=== PATIENT | female | born 1945 | race Caucasian/White ===

== ENCOUNTER 2017-05-20 19:48 | Emergency (ER) | payer OTHER ==
[~2017-05-20] VITALS: Ht 162.6 cm; Wt 104.5 kg
[~2017-05-20 19:48] MED LIST: ALBUAER9 INH; CHOL100010 PO; FLUT0.0529; FRRS300 PO; LORA10CA2 PO; TRAM-10 PO; TRIA37.5 PO
[2017-05-20 19:52] VITALS: TEMP 36.8; Ht 162.6 cm; Wt 104.5 kg
[2017-05-20] MEDS ORDERED: NAPR250T2 PO (20:33)
[2017-05-20] MEDS ORDERED: FLVHFA110 INH (20:33)
[2017-05-20] MEDS ORDERED: CYAN10005 PO (20:33)
[2017-05-20] MEDS ORDERED: CHOL1000 PO (20:33)
[2017-05-20] MEDS ORDERED: FLUT0.15 NAE (20:33)
[2017-05-20] MEDS ORDERED: VNTHFA/IN INH (20:33)
[2017-05-20] MEDS ORDERED: LPT10 PO (20:33)
--- NOTE | 2017-05-20 20:49 | DIAGNOSTIC IMAGING REPORT ---
LEFT PELVIS/UNILATERAL HIP 2-3VIEWS CLINICAL HISTORY: left hip pain COMPARISON STUDY: Pelvis 01/23/2015. FINDINGS: There is again noted a left total hip arthroplasty. No fracture or dislocation within the pelvis or hips. Stable 5.6 cm calcified uterine fibroid within the left deep pelvis. The sacrum is intact. Degenerative changes within the lower lumbar spine. Severe osteoarthritis within the right hip, unchanged. There is 1.5 mm of periprosthetic lucency at the level of the left greater trochanter. This is within the range of normal limits but is slightly progressed compared to the 2014 examination. IMPRESSION: 1. No acute fracture or dislocation within the pelvis or hips. 2. Left total hip arthroplasty. The hardware appears intact. There is 1.5 mm of periprosthetic lucency at the level of the left greater trochanter. This is within the range of normal limits but is slightly progressed compared to the 2014 examination. 3. Severe right hip osteoarthritis, unchanged. Electronically signed by: Ethan Polanco M.D. 05/20/2017 8:48 PM Dictated Date/Time: 05/20/2017 8:45 PM
--- NOTE | 2017-05-20 21:46 | EMERGENCY ROOM VISIT NOTE ---
History Report prepared by Alyce: Ric Atkins Under the Supervision of: Susan BooO. First contact with patient: 19:55 Chief Complaint: HIP PAIN Stated Complaint: UNABLE TO BEAR WEIGHT L HIP History of Present Illness The patient is a 72 year old female who presents to the Emergency Room with complaints of constant left hip pain starting earlier today while bowling. The patient states that the pain is worsened with movement. The patient states that she did not feel any pop or anything, and she denies any back pain, knee pain, ankle pain, weakness, or numbness. She states that she has a history of left hip replacement in 2015. Source of History: patient Onset: earlier today Position: other (left hip) Timing: constant Modifying Factors (Worsening): movement Associated Symptoms: No back pain, No weakness, No numbness Review of Systems See HPI for pertinent positives & negatives. A total of 10 systems reviewed and were otherwise negative. 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 (2) Hypertension Nos Social History Smoking Status: Never Smoker Marital Status: Housing Status: lives with family Occupation Status: retired Current/Historical Medications Scheduled Atorvastatin (Atorvastatin Calcium), 10 MG PO DAILY Cholecalciferol (Vitamin D3), 2,000 INTER.UNIT PO DAILY Cyanocobalamin (Vitamin B-12), 1,000 MCG PO DAILY Fluticasone Propionate (Flovent Hfa), 2 PUFFS INH BID Triamterene/Hctz (Dyazide 37.5MG/25MG), 1 TAB PO QAM Scheduled PRN Albuterol Hfa (Ventolin Hfa), 2 PUFFS INH Q4H PRN for SOB/Wheezing Fluticasone Propionate (Nasal) (Flonase Allergy Relief), 2 SPRAY MYKEL DAILY PRN for UNDECIDED Naproxen (Naprosyn), 250 MG PO BID PRN for Pain Allergies Coded Allergies: Etodolac (Verified Allergy, Intermediate, WHEEZING, 01/23/15) Animal Dander (Verified Allergy, Unknown, WHEEZING, COUGH,SNEEZING, 01/23/15 ) Flurbiprofen (Verified Allergy, Unknown, WHEEZING,COUGH, SNEEZING, 01/23/15) POLLEN (Verified Allergy, Unknown, WHEEZING, SNEEZING,COUGH, 01/23/15) Aspirin (Verified Adverse Reaction, Intermediate, WHEEZING, 01/23/15) Physical Exam Vital Signs Date Time Temp Pulse Resp B/P (MAP) Pulse Ox O2 Delivery O2 Flow Rate FiO2 05/20/17 21:59 75 20 133/100 98 05/20/17 20:38 85 160/80 95 Room Air 05/20/17 19:52 36.8 85 18 160/84 97 Room Air Physical Exam CONSTITUTIONAL/VITAL SIGNS: Reviewed / noted above. GENERAL: Non-toxic in appearance. INTEGUMENTARY: Warm, dry, and [place]. HEAD: Normocephalic. EYES: without scleral icterus or trauma. ENT/OROPHARYNX: clear and moist. LYMPHADENOPATHY/NECK: Is supple without lymphadenopathy or meningismus. RESPIRATORY: Lungs clear and equal. CARDIOVASCULAR: Regular rate and rhythm. GI/ABDOMEN: Soft and nontender. No organomegaly or pulsatile mass. No rebound or guarding. Normal bowel sounds. EXTREMITIES: Tenderness to palpation of the left hip area. Some discomfort with ambulation. Warm and well perfused. BACK: No CVA tenderness. NEUROLOGICAL: Intact without focal deficits. PSYCHIATRIC: normal affect. MUSCULOSKELETAL: Normally developed with good muscle tone. Medical Decision & Procedures ER Provider Diagnostic Interpretation: Radiology results as stated below per my review and radiologist interpretation: LEFT PELVIS/UNILATERAL HIP 2-3VIEWS CLINICAL HISTORY: left hip pain COMPARISON STUDY: Pelvis 01/23/2015. FINDINGS: There is again noted a left total hip arthroplasty. No fracture or dislocation within the pelvis or hips. Stable 5.6 cm calcified uterine fibroid within the left deep pelvis. The sacrum is intact. Degenerative changes within the lower lumbar spine. Severe osteoarthritis within the right hip, unchanged. There is 1.5 mm of periprosthetic lucency at the level of the left greater trochanter. This is within the range of normal limits but is slightly progressed compared to the 2014 examination. IMPRESSION: 1. No acute fracture or dislocation within the pelvis or hips. 2. Left total hip arthroplasty. The hardware appears intact. There is 1.5 mm of periprosthetic lucency at the level of the left greater trochanter. This is within the range of normal limits but is slightly progressed compared to the 2014 examination. 3. Severe right hip osteoarthritis, unchanged. Electronically signed by: Ethan Polanco M.D. 05/20/2017 8:48 PM Dictated Date/Time: 05/20/2017 8:45 PM ED Course 1954: Previous medical records were reviewed. The patient was evaluated in room C3. A complete history and physical examination was performed. 2149: On reevaluation, the patient is feeling well. I discussed the results and findings with the patient. She verbalized agreement of the treatment plan. She was discharged home. Medical Decision Differential diagnosis: Etiologies such as fracture, dislocation, neurovascular compromise, compartment syndrome, soft tissue injury, as well as others were entertained. This is a 72-year-old female who presents to the ED with a chief complaint of left hip pain. The patient has a history of left hip replacement. She was bowling tonight when she states that she left school with a ball and suddenly felt pain in the left hip area. She did not feel a pop or crack. She came in for evaluation. Her pain is absent at rest and is worse with attempting ambulation, specifically with the flexion and extension at the hip movement. She denies any additional symptoms. She is normal reflexes in the lower extremities on exam. She has normal motor and sensory function. She has normal pulses. The patient does have some tenderness to the lateral left hip on exam but there is otherwise no abnormalities palpated or visible. X-rays of the pelvis and hip did not show any significant abnormalities in the left hip. The hardware is intact. The patient was told results. She did not want pain medication. She is felt to be stable for discharge. Medication Reconcilliation Current Medication List: was personally reviewed by me Blood Pressure Screening Patient's blood pressure: Elevated blood pressure Blood pressure disposition: Elevated BP felt to be situational Impression Primary Impression: Hip pain, left Scribe Attestation The scribe's documentation has been prepared under my direction and personally reviewed by me in its entirety. I confirm that the note above accurately reflects all work, treatment, procedures, and medical decision making performed by me. Departure Information Dispostion Home / Self-Care Referrals Lashanda Monroy M.D. (PCP) Forms HOME CARE DOCUMENTATION FORM, IMPORTANT VISIT INFORMATION, WORK / SCHOOL INSTRUCTIONS [facility] Instructions [facility] Additional Instructions Take [id number] medications for pain. Follow-up with your orthopedist if symptoms persist next week.
[2017-05-20 21:59] VITALS: BP 133/100; PULSE 75; O2SAT 98
== END 2017-05-20 22:00 | disposition home or self-care (01) ==
LOC: C.EDB 19:49 → C.EDC 22:00
DX: M25.552 Pain in left hip (principal); I25.10 Atherosclerotic heart disease of native coronary artery without angina pectoris; I10 Essential (primary) hypertension; Z96.642 Presence of left artificial hip joint

== ENCOUNTER 2020-05-13 05:15 | Observation (INO) ==
--- NOTE | 2020-04-11 14:18 | PAT Medication Instructions ---
Medication Instructions Date of Service April 11, 2020 Home Medications acetaminophen [Tylenol 8 Hour] 650 mg PO Q8H PRN albuterol sulfate [Ventolin HFA] 2 puff INHALATION Q6H PRN atorvastatin 10 mg PO QAM cholecalciferol (vitamin D3) [Vitamin D3] 50 mcg PO QAM cyanocobalamin (vitamin B-12) 1,000 mcg PO QAM fluticasone propionate 1 spray INTRANASAL DAILY PRN lisinopril-hydrochlorothiazide 1 tab PO QAM DO NOT take the morning of surgery cholecalciferol (vitamin D3) [Vitamin D3] 50 mcg PO QAM cyanocobalamin (vitamin B-12) 1,000 mcg PO QAM lisinopril-hydrochlorothiazide 1 tab PO QAM Take morning of surgery With a small sip of water, OTHERWISE NOTHING TO EAT OR DRINK AFTER MIDNIGHT: acetaminophen [Tylenol 8 Hour] 650 mg PO Q8H PRN (okay to take up to 4 hours prior to surgery if needed) albuterol sulfate [Ventolin HFA] 2 puff INHALATION Q6H PRN (use if needed; please bring with you to hospital day of surgery if possible) atorvastatin 10 mg PO QAM fluticasone propionate 1 spray INTRANASAL DAILY PRN (if needed) Take evening before surgery acetaminophen [Tylenol 8 Hour] 650 mg PO Q8H PRN (if needed) albuterol sulfate [Ventolin HFA] 2 puff INHALATION Q6H PRN (if needed) fluticasone propionate 1 spray INTRANASAL DAILY PRN (if needed) Other Notes If you have any questions please call us at [phone] or [phone] or [phone] or [phone]
--- NOTE | 2020-04-14 14:18 | Anesthesiology Consultation ---
Date of Service April 14, 2020 Assessment & Plan (1) Encounter for pre-operative examination: Per PAT assessment on 04/10: Travel screen negative. No known COVID-19 positive contacts. No current COVID-19 related symptoms. Surgeon arranging preop COVID testing. Awaiting results. Chart Review Chart Review: Acceptable Risk for Surgery and Patient seen in Pre Admission Testing Teaching & Discussion Pre-Anesthesia Teaching/Discussion Notes: Instructed NPO after midnight before surgery,except medications with 15 cc of water. Medication instructions provided according to the [facility] guidelines. History Surgery Operation Date: 05/13/20 07:15 Proposed Procedures p Right Total Hip Arthroplasty - Posterior - Curtis Cancino DO Height/Weight Height: 5 ft 3 in Weight: 86.4 kg Allergies Allergy/AdvReac Type Severity Reaction Status Date / Time aspirin Allergy Intermediate wheezing Verified 04/14/20 14:16 etodolac Allergy Intermediate wheezing Verified 04/14/20 14:16 animal dander Allergy Unknown wheezing, Verified 04/14/20 14:16 cough, sneezing flurbiprofen Allergy Unknown wheezing, Verified 04/14/20 14:16 cough, sneezing pollen extracts Allergy Unknown wheezing, Verified 04/14/20 14:16 cough, sneezing ibuprofen AdvReac Intermediate Unknown Verified 04/10/20 08:33 Medications Home Medications Medication Instructions Recorded Confirmed Last Taken acetaminophen [Tylenol 8 Hour] 650 mg PO Q8H PRN 04/10/20 04/10/20 Unknown albuterol sulfate [Ventolin HFA] 2 puff INHALATION Q6H PRN 04/10/20 04/10/20 Unknown atorvastatin 10 mg PO QAM 04/10/20 04/10/20 Unknown cholecalciferol (vitamin D3) 50 mcg PO QAM 04/10/20 04/10/20 Unknown [Vitamin D3] cyanocobalamin (vitamin B-12) 1,000 mcg PO QAM 04/10/20 04/10/20 Unknown fluticasone propionate 1 spray INTRANASAL DAILY PRN 04/10/20 04/10/20 Unknown lisinopril-hydrochlorothiazide 1 tab PO QAM 04/10/20 04/10/20 Unknown Past Medical History Medical History Asthma well controlled DJD (degenerative joint disease) Hyperlipidemia Hypertension Left bundle branch block dating back to at least 06/2012 per [facility] records Obesity Osteoarthritis Urge incontinence Exercise / Class Metabolic Activity III < 4 Walking/Shop/Light housework Past Surgical History Surgical History Basal cell carcinoma of scalp> removed History of carpal tunnel release left History of colonoscopy History of decompression of ulnar nerve right History of tooth extraction History of total hip arthroplasty left History of total shoulder replacement bilat Status post trigger finger release left hand Past Anesthesia History No Hx of Anesthesia Complications and No Family Hx of Anesthesia Complications History of PONV No Hx of PONV and No Hx of Motion Sickness Social History Smoking Status: Former smoker Do You Dip or Chew Tobacco: No Smoking End Date: Quit age 20 Hx Alcohol Use: Yes Alcohol type: wine alcohol intake frequency: holidays/special occasions only Hx Substance Use: No substance use type: does not use Review of Systems Patient denies chest pain, shortness of breath, fever, chills, cough, wheezing, palpitations. Physical Exam Vital Signs VITALS BP 113/70 P 90 TEMP 98.4 SP02 98%RA RESP 18 PHYSICAL Full neck and c-spine range of motion. Full TMJ range of motion. TMD 3 finger breaths Mallampati Score 2 Dentition: intact Lungs: clear throughout to auscultation Cardiac: regular rate and rhythm, no murmurs noted Spine: normal Carotid arteries: negative bruit Extremities: no edema Testing Laboratory Results 04/14/20 14:49 04/14/20 14:49 PT 10.9 Seconds (9.0-12.0) 04/14/20 14:49 INR 1.0 (0.9-1.1) 04/14/20 14:49 APTT 25.8 Seconds (21.0-31.0) 04/14/20 14:49 Hemoglobin A1c 5.2 % (4.5-5.6) 04/14/20 14:49 Urine Color Yellow 04/14/20 Unknown Urine Appearance Clear (Clear) 04/14/20 Unknown Urine pH 5.0 (4.5-7.5) 04/14/20 Unknown Ur Specific [place] 1.018 (1.000-1.030) 04/14/20 Unknown Urine Protein Negative (Negative) 04/14/20 Unknown Urine Glucose (UA) Negative (Negative) 04/14/20 Unknown Urine Ketones Negative (Negative) 04/14/20 Unknown Urine Nitrite Negative (Negative) 04/14/20 Unknown Ur Leukocyte Esterase 1+ (Negative) H 04/14/20 Unknown Urine WBC (Auto) 5-10 /hpf (0-5) H 04/14/20 Unknown Urine RBC (Auto) 0-4 /hpf (0-4) 04/14/20 Unknown U Hyaline Cast (Auto) 1-5 /lpf (0-5) 04/14/20 Unknown U Epithel Cells (Auto) 5-10 /lpf (0-5) H 04/14/20 Unknown Urine Bacteria (Auto) Negative (Negative) 04/14/20 Unknown Blood Type O Positive 04/14/20 14:49 Antibody Screen NEGATIVE 04/14/20 14:49 Electrocardiogram Date: 04/14/20 NSR at 78bpm. LBBB. unconfirmed report. (known hx LBBB dating back 2011 EKG's per chart review, stress test done 12/2012*) Chest X-Ray Date: 04/14/20 FINDINGS: 4.0 cm opacity of the medial right lung base is noted with circumscribed superior margin. This appears more conspicuous than comparison study is. Cardiac silhouette is normal. Calcific plaque of the thoracic aorta. No pneumothorax, pleural effusion, overt pulmonary edema or airspace consolidation typical for pneumonia. Degenerative changes of the spine. Reverse bilateral shoulder total joint arthroplasties. IMPRESSION: No acute process. 4.0 cm opacity of the right cardiophrenic angle is suggestive of a probable p rominent epicardial fat pad. A pericardial cyst could appear similarly. Report being forwarded to PCP for their reference. Stress Test Date: 01/09/13 Myocardial perfusion normal. No RWMA. EF 58%.
--- NOTE | 2020-04-14 15:22 | XRay Report ---
XR chest Pre-admission PA/Lat HISTORY: 75 years-old Female pat preoperative exam. No acute chest complaints COMPARISON: Chest radiograph 02/11/2015 and 01/01/2015 TECHNIQUE: PA and lateral views of the chest FINDINGS: 4.0 cm opacity of the medial right lung base is noted with circumscribed superior margin. This appear s more conspicuous than comparison study is. Cardiac silhouette is normal. Calcific plaque of the tho racic aorta. No pneumothorax, pleural effusion, overt pulmonary edema or airspace consolidation typic al for pneumonia. Degenerative changes of the spine. Reverse bilateral shoulder total joint arthropla sties. IMPRESSION: 1. No acute process. 2. 4.0 cm opacity of the right cardiophrenic angle is suggestive of a probable prominent epicardial f at pad. A pericardial cyst could appear similarly. ACT 112: Negative or not required by law. The above report was generated using voice recognition software. It may contain grammatical, syntax o r spelling errors. Electronically signed by: Liam Alvarez M.D. 04/14/2020 3:20 PM
[2020-04-14 15:27] LABS: Basophils # (auto) 0.01 K/uL (0-0.2); Basophils % (auto) 0.2 %; Eosinophils % (auto) 1.7 %; Hematocrit (blood only) 34.2 % (37-47); Hemoglobin 11.2 g/dL (12.0-16.0); Immature Granulocytes # (auto) 0.01 K/uL (0.00-0.02); Immature Granulocytes % (auto) 0.2 %; Lymphocytes # (auto) 0.95 K/uL (1.2-3.4); Lymphocytes % (auto) 15.9 %; Mean Corpuscular Hemoglobin 31.5 pg (25-34); Mean Corpuscular Hgb Conc 32.7 g/dL (32-36); Mean Corpuscular Volume 96.3 fL (80-100); Mean Platelet Volume 9.1 fL (7.4-10.4); Monocytes # (auto) 0.19 K/uL (0.11-0.59); Monocytes % (auto) 3.2 %; Neutrophils # (auto) 4.72 K/uL (1.4-6.5); Neutrophils % (auto) 78.8 %; Platelet Count 232 K/uL (130-400); RDW Coefficient of Variation 13.2 % (11.5-14.5); RDW Standard Deviation 46.3 fL (36.4-46.3); Red Blood Count 3.55 M/uL (4.2-5.4); White Blood Count 5.98 K/uL (4.8-10.8)
[2020-04-14 15:30] LABS: Albumin Level 3.4 gm/dl (3.4-5.0); BUN Creatinine Ratio 25.1 (10-20); Calcium 9.4 mg/dl (8.5-10.1); Creatinine Clr Calc Pharmacy 43.5 ml/min; Est GFR (African American) 51.9; Est GFR (Non-African American) 44.8
[2020-04-14 15:32] LABS: Appearance Urine Clear (Clear); Bacteria Urine Automated Negative (Negative); Bilirubin Urine Negative (Negative); Blood Urine Negative (Negative); Color Urine Yellow; Glucose Urine UA Negative (Negative); Ketones Urine Negative (Negative); Leukocyte Esterase Urine 1+ (Negative); Nitrite Urine Negative (Negative); Protein Urine Negative (Negative); RBC Urine Automated 0-4 /hpf (0-4); Specific Gravity Urine 1.018 (1.000-1.030); Urobilinogen Urine Negative (Negative)
[2020-04-14 15:36] LABS: Partial Thromboplastin Ratio 0.9; Partial Thromboplastin Time 25.8 Seconds (21.0-31.0); Prothrombin Time 10.9 Seconds (9.0-12.0)
[2020-04-15 06:07] LABS: Estimated Average Glucose 103 mg/dl; Hemoglobin A1C 5.2 % (4.5-5.6)
--- NOTE | 2020-04-16 16:46 | Electrocardiogram Report ---
Test Reason : Blood Pressure : / mmHG Vent. Rate : 078 BPM Atrial Rate : 078 BPM P-R Int : 134 ms QRS Dur : 144 ms QT Int : 406 ms P-R-T Axes : 068 -14 077 degrees QTc Int : 462 ms Normal sinus rhythm Left bundle branch block Abnormal ECG When compared with ECG of 01-JAN-2015 13:34, No significant change was found Confirmed by Chris Bentley ([id number]) on 04/16/2020 4:46:13 PM Referred By: Curtis Cancino Confirmed By:Chris Bentely
--- NOTE | 2020-05-11 10:24 | History & Physical Report ---
Date of Service May 13, 2020 Assessment & Plan (1) Degenerative joint disease of right hip: I have indicated the patient for right total hip replacement. The risks, benefits and complications of surgery were explained to the patient which include but not limited to infection, acute blood loss, DVT/PE, injury to nerves, vessels, bone, soft tissue, arthrofibrosis, chronic pain, failure of the prosthesis, hip dislocation, leg length discrepancy, need for additional surgery, cardiac and pulmonary events and . The patient wished to proceed with surgery and informed consent was obtained at this time. We will plan for 81mg ASA BID post-operatively for DVT prophylaxis. Upon discharge the patient will be discharged home with home health services. Appropriate clearances by PCP were obtained. History of Present Illness Chief Complaint: Right hip pain/DJD Primary Care Provider: Tamiko Hinkle DO The patient is a 75 year old female who presents with complaints of severe right hip pain and DJD. The patient has failed outpatient conservative treatments to this point which included NSAIDs, home exercise/walking program. The patient's pain and limited function have progressed to the point where they severely hinder their activities of daily living and they no longer tolerate exercise programs. They are requesting to proceed with total hip replacement surgery. Allergies Allergy/AdvReac Type Severity Reaction Status Date / Time aspirin Allergy Intermediate wheezing Verified 05/13/20 05:38 etodolac Allergy Intermediate wheezing Verified 05/13/20 05:38 animal dander Allergy Unknown wheezing, Verified 05/13/20 05:38 cough, sneezing flurbiprofen Allergy Unknown wheezing, Verified 05/13/20 05:38 cough, sneezing pollen extracts Allergy Unknown wheezing, Verified 05/13/20 05:38 cough, sneezing ibuprofen AdvReac Intermediate Unknown Verified 05/13/20 05:38 Home Medications Home Medications Medication Instructions Recorded Confirmed Type acetaminophen [Tylenol 8 Hour] 650 mg PO Q8H PRN 04/10/20 05/13/20 History albuterol sulfate [Ventolin HFA] 2 puff INHALATION Q6H PRN 04/10/20 04/10/20 History atorvastatin 10 mg PO QAM 04/10/20 05/13/20 History cholecalciferol (vitamin D3) 50 mcg PO QAM 04/10/20 05/13/20 History [Vitamin D3] cyanocobalamin (vitamin B-12) 1,000 mcg PO QAM 04/10/20 05/13/20 History fluticasone propionate 1 spray INTRANASAL DAILY PRN 04/10/20 04/10/20 History lisinopril-hydrochlorothiazide 1 tab PO QAM 04/10/20 05/13/20 History naproxen sodium [Aleve] 220 mg PO BID PRN 05/13/20 05/13/20 History Past Med/Surg History Medical History Asthma well controlled DJD (degenerative joint disease) Hyperlipidemia Hypertension Left bundle branch block dating back to at least 06/2012 per [facility] records Obesity Osteoarthritis Urge incontinence Surgical History Basal cell carcinoma of scalp> removed History of carpal tunnel release left History of colonoscopy History of decompression of ulnar nerve right History of tooth extraction History of total hip arthroplasty left History of total shoulder replacement bilat Status post trigger finger release left hand Social History Smoking Status: Former smoker Smoking End Date: Quit age 20; Second Hand Exposure: No; Do You Dip or Chew Tobacco: No; Tobacco Cessation Education Requested by Patient: No Hx Alcohol Use: Yes Alcohol type: wine Hx Substance Use: No Preferred Language: Uzbek Communication Ability: Effective [employer]space Control Officer Required: No Beliefs That Will Affect Care: None Current Living Situation: Family Other Information That Helps Us Care for You: No Feels Safe at Home: Yes Safety Concerns: Feels Safe At This Time Review of Systems Review of Systems: All systems reviewed & are unremarkable except as noted in HPI & below Constitutional: as per Subjective / HPI Physical Exam Physical Exam: RLE NVSI +EHL/FHL/TA/GS SILT grossly, +2 DP pulse, compartments soft NT, limited painful ROM of the hip, antalgic gait. Constitutional: WD/WN, vitals as above Eyes: PERRL, conjunctivae normal, anicteric sclerae ENMT: external ear and nose normal, oropharynx normal Neck: trachea midline, no thyromegaly Respiratory: normal respiratory effort, lungs clear to auscultation Cardiovascular: RRR, no murmur, no edema Gastrointestinal (Abdomen): normal bowel sounds, soft, nontender, no hepatosplenomegaly Musculoskeletal: no cyanosis or clubbing, extremities motor strength 5/5 Skin: no rashes, warm and dry Neurologic: patellar DTR's 2+ bilat, sensation intact Psychiatric: A+Ox3, euthymic affect Lymphatic: no cervical or axillary lymphadenopathy Results & Data Results & Data ([facility]) Diagnostic Findings Multiple views of the hip demonstrates severe DJD with complete loss of the joint space. +osteophytes, +sclerosis, +subchondral cysts.
[2020-05-13] MEDS ORDERED: GABAPENTIN 300 MG CAP PO SCH (06:00)
[2020-05-13] MEDS ORDERED: dexAMETHasone 4 MG TAB PO SCH (06:00)
[2020-05-13] MEDS ORDERED: CEFAZOLIN 2000MG 2,000 MG/15 ML SYR IV SCH (06:00)
[2020-05-13] MEDS ORDERED: FAMOTIDINE 20 MG TAB PO SCH (06:00)
[2020-05-13] MEDS ORDERED: METOCLOPRAMIDE HCL 10 MG TABLET PO SCH (06:00)
[2020-05-13] MEDS ORDERED: CeleBREX 200 MG CAP PO SCH (06:00)
[2020-05-13] MEDS ORDERED: TRANEXAMIC ACID 1,000 MG **IV Intra-op IV SCH (06:00)
[2020-05-13] MEDS ORDERED: TRANEXAMIC ACID 1,000 MG **IV Pre-op IV SCH (06:00)
[2020-05-13] MEDS ORDERED: LR 500ML BOLUS, THEN 15ML/HR IV SCH (06:00)
[2020-05-13] MEDS ORDERED: ACETAMINOPHEN 500 MG TAB PO SCH (06:00)
[2020-05-13] MEDS ORDERED: ROPIVACAINE 0.5% HCL/PF 150 MG, BUPIVACAINE 0.5% MPF 30 ML, EPINEPHrine 30MG/30ML (OR U... INFIL SCH ×2 (06:00→08:30)
[2020-05-13] MEDS ORDERED: BUPIVACAINE 0.5 % 5 MG/1 ML PF 10ML VIAL ONE (06:19)
[2020-05-13] MEDS ORDERED: MIDAZOLAM HCL 1 MG/ML 2ML VIAL ONE ×2 (06:42)
--- NOTE | 2020-05-13 06:58 | History & Physical Bridge Note ---
Date of Service May 13, 2020 History & Physical Bridge Note I have examined the patient, reviewed the History & Physical and in the interval since the performance of the History & Physical I have noted the following changes of clinical significance: no changes noted
[2020-05-13] MEDS ORDERED: ORTHO JOINT ANESTHETIC ONE (07:06)
[2020-05-13] MEDS ORDERED: BACITRACIN INJ 50,000 UNIT VIAL ONE (07:07)
[2020-05-13] MEDS ORDERED: PROPOFOL IV EMULSION 10 MG/ML 20 ML VIAL IV ONE ×2 (07:46→08:45)
[2020-05-13] MEDS ORDERED: ATROPINE SULFATE 0.1 MG/ML 10ML SYR IV PRN (08:08)
[2020-05-13] MEDS ORDERED: ePHEDrine sulfate 50 MG/ML AMP IV PRN (08:08)
--- NOTE | 2020-05-13 08:55 | Post Operative Brief Note ---
Immediate Post Op Note v1 Date of Surgery May 13, 2020 Pre & Post Diagnosis Operation Date: 05/13/20 07:15 Pre-Op Diagnosis: Unilateral Primary Osteoarthritis, Right hip Post-Op Diagnosis: Unilateral Primary Osteoarthritis, Right hip I identified the patient and participated in the time-out.: Yes Procedure Operation Date: 05/13/20 07:15 Actual Procedures p Right Total Hip Arthroplasty - Posterior(Right) - Curtis Cancino DO Surgeon Curtis Cancino DO [employer] Jensen Wang Estimated Blood Loss 185 Findings Consistent with Post-Op Diagnosis Fluids 1200 cc LR Specimens femoral head Anesthesia Type Spinal MAC Complications none Disposition Disposition: Recovery Room Overlapping Procedure I was present for: the critical portions of procedure. I was immediately available: during the entire case. Back up surgeon: was not required during procedure.
--- NOTE | 2020-05-13 08:58 | Operative Report ---
Post Operative Report Pre & Post Diagnosis Operation Date: 05/13/20 07:15 Pre-Op Diagnosis: Unilateral Primary Osteoarthritis, Right hip Post-Op Diagnosis: Unilateral Primary Osteoarthritis, Right hip I identified the patient and participated in the time-out.: Yes Procedure Operation Date: 05/13/20 07:15 Actual Procedures p Right Total Hip Arthroplasty - Posterior(Right) - Curtis Cancino DO Surgeon Curtis Cancino DO Neurophysiology Tech Jensen Wang Estimated Blood Loss 185 Findings Consistent with Post-Op Diagnosis Fluids 1200 cc LR Specimens femoral head Anesthesia Type Spinal MAC Complications none Disposition Disposition: Recovery Room Indications The patient is a 75-year-old female who presents with severe progressive right hip DJD who has failed outpatient conservative treatments. I indicated the patient for a total hip replacement and the risks and benefits were explained in detail which included but not limited to infection, bleeding, blood clot, damage to surrounding bone, nerves, vessels, soft tissue, hip dislocation, failure of the prosthesis, leg length discrepancy, need for additional surgery and . The patient agreed to proceed with replacement of the hip and informed consent was obtained. Appropriate clearances were obtained. Description of Procedure COMPONENTS USED: [employer] hip system: Acetabulum size G7 50, femur size 9 extended offset, femoral head 36-3.5, liner 5036 elevated, acetabular screw 30 mm x 1. Following induction of adequate spinal anesthesia, the patient was transferred to the OR table and placed in lateral decubitus position with left hip down. The right hip was prepped and draped in the typical sterile fashion. A timeout was performed, patient identified and site elif confirmed. Appropriate antibiotics were given. A standard posterolateral/Abrahan-Langenbeck incision was made. Subcutaneous tissue was sharply dissected. Electrocautery was utili zed for hemostasis. The fascia was incised throughout the length of the wound and retracted with the Charnley retractor. The bursa was taken down and the short external rotators were identified. The piriformis was tagged with #1 Vicryl. The short external rotators and capsule were divided from the posterior aspect of the femur using electrocautery. The posterior capsule was tagged with #1 Vicryl. Both external rotators and posterior capsule were swept posterior and protected, along with protecting the sciatic nerve. The hip was dislocated by flexion and internally rotation in a controlled manner and exposure of the femoral neck was gained with an old-style Hohmann and a blunt cobra retractor. A femoral cutting guide was utilized for making the appropriate level femoral neck cut with reciprocating saw. The femoral head was removed, measured and reserved on the back table. Next, attention was turned to the acetabulum. A posterior and anterior offset retractor was placed to gain adequate exposure. Acetabular labrum as well as posterior capsule elements were removed using electrocautery and forceps. Fovea centralis was cleared of all soft tissue. Sequential reaming was performed starting at 42 mm and carried up to a 49 mm and decision was made to proceed with impaction of a 50 mm G7 osteo-ti cup. This was impacted and held using a single 30 mm bone screw. The trial acetabular liner was placed at this time. Next, attention was turned to the proximal femur where a Bovie and pickup was used to further clear short external rotators from their insertion on the femur. Box osteotome and canal finder was used to gain access to the femoral canal and the lateral reamer on power was used to further open the proximal lateral canal. Sequentially rasping was carried up to a 9 which gave good fit and fill of the proximal femur. A trial reduction was carried out with a extended offset femoral neck component a 36-3.5 mm femoral head. The trial reduction was stable in all degrees of rotation with no [id number] impingement. The hip was dislocated, trial components were removed and access to the acetabulum was re-established. The trial liner was removed and the cup was irrigated to ensure all debris was removed. The final acetabular liner was inserted and properly seated in the cup. Access to the femur was once more gained and the size 9 femoral stem with extended offset was impacted into position. The hip was once more assessed with the 36-3.5 mm femoral head. Stability was accessed and found to be excellent with equal leg lengths. The hip was dislocated for the last time and the final 36-3.5 ceramic femoral head was impacted in place and the hip was reduced. Range of motion was checked once again and found to be stable. A Betadine soak was performed. After 3 minutes, the hip was once more irrigated with copious sterile saline solution with bacitracin. The briseida-incisional soft tissue was injected utilizing [place] ortho mix which includes a combination of Ropivicaine 0.5% 150mg, Bupivicaine 0.5%/Epinephrine 1:200,000 30ml, Dexamethasone 4mg, Ketamine 10mg, Clonidine 100mcg and NSS 30ml Orthomix solution. The piriformis, external rotators and capsule were repaired to the greater trochanter through bone tunnels using #5 FiberWire. The fascia was closed using #1 Vicryl, subcutaneous tissue was closed using 2-0 Vicryl, and ski n was closed with devyn. Sterile dressings were applied which included Debra incisional VAC. The patient tolerated the procedure well and was transported to PACU in stable condition. Due to the complex nature of the procedure, the entire surgery was performed with the operational assistance of Jensen Wang PA-C. The volleyball assistant coach, under direct supervision, was involved in the actual performance of all aspects of the surgical procedure including patient positioning, hemostasis, tissue retraction, instrument management and wound closure. I attest to the content of the Intraoperative Record and any orders documented therein. Any exceptions are noted below.
--- NOTE | 2020-05-13 09:32 | XRay Report ---
SINGLE VIEW PELVIS; SINGLE VIEW RIGHT HIP CLINICAL HISTORY: Postoperative examination. FINDINGS: An AP portable view of the hips and pelvis with a crosstable lateral portable view of the r ight hip are compared to study dated 05/20/2017. A bipolar right hip arthroplasty is in near-anatomic a lignment. A single cortical lag screw transfixes the acetabular cup. No acute fracture is identified. There are expected postoperative changes overlying the right hip including skin clips, subcutaneous gas, and soft tissue swelling. A left hip arthroplasty is also in place. A large calcified fibroid is noted in the pelvis. IMPRESSION: Expected postoperative findings status post right hip arthroplasty. No acute fracture is seen. ACT 112: Negative or not required by law. Electronically signed by: Francisco Balderas M.D. 05/13/2020 9:31 AM
--- NOTE | 2020-05-13 09:44 | Anesthesiology Progress Note ---
Date of Service May 13, 2020 Anesthesia Post Procedure Vital Signs Vital Signs: Temp Pulse Pulse Resp BP Pulse Ox 05/13/20 09:35 36.3 C L 64 19 98/60 L 100 05/13/20 09:25 66 15 99/67 L 100 05/13/20 09:17 36.0 C L 74 22 102/59 L 99 05/13/20 06:27 70 18 124/65 98 05/13/20 05:49 36.9 C 73 18 153/84 H 96 Transfer of Care Handoff Completed per policy Notes Mental Status: alert / awake / arousable Patient Amnestic to Procedure: Yes Nausea / Vomiting: adequately controlled Pain: adequately controlled Airway Patency, RR, SpO2: stable & adequate BP & HR: stable & adequate Hydration State: stable & adequate Neuraxial Anesthesia: was administered and sensory block is resolving Anesthetic Complications: no major complications apparent
[2020-05-13] MEDS ORDERED: NALOXONE HCL 0.4 MG/1 ML VIAL/CARP IV PRN (10:26)
[2020-05-13] MEDS ORDERED: ONDANSETRON INJ 2 MG/ML 2 ML VIAL IV PRN (10:26)
[2020-05-13] MEDS ORDERED: METOCLOPRAMIDE HCL INJ 5 MG/ML 2 ML VIAL IV PRN (10:26)
[2020-05-13] MEDS ORDERED: ALBUTEROL HFA 8 GM INHALER INH PRN (10:26)
[2020-05-13] MEDS ORDERED: bisacodyL 10 MG SUPP PR PRN (10:26)
[2020-05-13] MEDS ORDERED: HYDROmorphone INJ 0.5 MG/0.5 ML SYR IV PRN (10:26)
[2020-05-13] MEDS ORDERED: MAGNESIUM HYDROXIDE SUSP 30 ML UDC PO PRN (10:26)
[2020-05-13] MEDS: SODIUM CHLORIDE 0.9% 1000ML 1,000 ML IV SCH ×2 (10:54→21:11)
[2020-05-13] MEDS: ATORVASTATIN 10 MG TAB PO SCH (11:43)
[2020-05-13] MEDS: DOCUSATE SODIUM 100 MG CAP PO SCH ×2 (11:51→20:47)
[2020-05-13] MEDS: LISINOPRIL/HCTZ 10/12.5MG TAB PO SCH (11:52)
[2020-05-13] MEDS: OXYCODONE HCL IR 5 MG TAB (IMMEDIATE RELEASE) PO PRN ×2 (11:52→20:48)
[2020-05-13] MEDS: MULTIVITAMIN TAB PO SCH (11:52)
[2020-05-13] MEDS: ACETAMINOPHEN 500 MG TAB PO SCH ×2 (15:28→22:02)
[2020-05-13] MEDS: CEFAZOLIN 2000MG 2,000 MG/15 ML SYR IV SCH ×2 (15:31→21:10)
--- NOTE | 2020-05-13 18:39 | Hospitalist Consultation ---
Date of Consultation May 13, 2020 Assessment & Plan (1) DJD (degenerative joint disease): (2) Degenerative joint disease of right hip: - Pain management, bowel regimen and DVT ppx with asa 81 mg BID per the primary team - PT/OT consults - Follow am CBC to monitor for acute blood loss (3) Osteoarthritis: - Pain controlled well, prn medications (4) Obesity: - BMI of 32.7, diet and exercise to be encouraged prior to discharge (5) Hypertension: - Cont lisinopril/hctz as per [facility] meds (6) Hyperlipidemia: - Cont atorvastatin 10 mg QAM (7) Left bundle branch block: - Hx of such, chronic, noted on EKG (8) Asthma: - Well controlled, does not require supplementat O2 at baseline (9) DVT prophylaxis: - teds, scds, asa 81 mg BID CODE: Full Dispo: From home, likely to remain in the hospital x 1-2 days History of Present Illness Attending Physician: Curtis Cancino, History of Present Illness This is a 75 yo F with PMHx of HTN, HLD, LBBB, Obesity, OA, DJD and asthma who underwent R total hip arthroplasty by Dr. Cancino on 05/13/2020. Allergies Allergy/AdvReac Type Severity Reaction Status Date / Time aspirin Allergy Intermediate wheezing Verified 05/13/20 05:38 etodolac Allergy Intermediate wheezing Verified 05/13/20 05:38 animal dander Allergy Unknown wheezing, Verified 05/13/20 05:38 cough, sneezing flurbiprofen Allergy Unknown wheezing, Verified 05/13/20 05:38 cough, sneezing pollen extracts Allergy Unknown wheezing, Verified 05/13/20 05:38 cough, sneezing ibuprofen AdvReac Intermediate Unknown Verified 05/13/20 05:38 Home Medications Home Medications Medication Instructions Recorded Confirmed Type acetaminophen [Tylenol 8 Hour] 650 mg PO Q8H PRN 04/10/20 05/13/20 History albuterol sulfate [Ventolin HFA] 2 puff INHALATION Q6H PRN 04/10/20 04/10/20 History atorvastatin 10 mg PO QAM 04/10/20 05/13/20 History cholecalciferol (vitamin D3) 50 mcg PO QAM 04/10/20 05/13/20 History [Vitamin D3] cyanocobalamin (vitamin B-12) 1,000 mcg PO QAM 04/10/20 05/13/20 History fluticasone propionate 1 spray INTRANASAL DAILY PRN 04/10/20 04/10/20 History lisinopril-hydrochlorothiazide 1 tab PO QAM 04/10/20 05/13/20 History naproxen sodium [Aleve] 220 mg PO BID PRN 05/13/20 05/13/20 History Patient History Medical History Asthma well controlled DJD (degenerative joint disease) Hyperlipidemia Hypertension Left bundle branch block dating back to at least 06/2012 per [facility] records Obesity Osteoarthritis Urge incontinence Surgical History Basal cell carcinoma of scalp> removed History of carpal tunnel release left History of colonoscopy History of decompression of ulnar nerve right History of tooth extraction History of total hip arthroplasty left History of total shoulder replacement bilat Status post trigger finger release left hand Social History Smoking Status: Former smoker Smoking End Date: Quit age 20; Second Hand Exposure: No; Do You Dip or Chew Tobacco: No; Tobacco Cessation Education Requested by Patient: No Hx Alcohol Use: Yes Alcohol type: wine Hx Substance Use: No Preferred Language: Turkish Communication Ability: Effective Emergency Care Attendant Required: No Beliefs That Will Affect Care: None Current Living Situation: Family Other Information That Helps Us Care for You: No Feels Safe at Home: Yes Safety Concerns: Feels Safe At This Time Results & Data Results & Data ([facility]) Vital Signs (Past 12 Hours) Vital Signs Temp Pulse Pulse Resp BP Pulse Ox 05/13/20 15:13 36.9 C 89 18 108/66 96 05/13/20 13:20 75 18 99/59 L 95 05/13/20 12:39 75 18 108/66 95 05/13/20 11:20 74 18 120/75 97 05/13/20 10:39 36.8 C 67 18 113/74 98 05/13/20 10:20 36.3 C L 71 19 107/66 99 05/13/20 10:05 64 12 124/72 100 05/13/20 09:50 67 13 109/68 100 05/13/20 09:35 36.3 C L 64 19 98/60 L 100 05/13/20 09:25 66 15 99/67 L 100 05/13/20 09:17 36.0 C L 74 22 102/59 L 99 PG Care Time/CCT Total # of Minutes Spent Total Time Spent with Patient: Total time spent is greater than 50% in coordination of care (as documented) at patient's floor/unit and/or counseling patient: Coding Diagnoses DJD (degenerative joint disease) M19.90 Degenerative joint disease of right hip M16.11 Osteoarthritis M19.90 Obesity E66.9 Hypertension I10 Hyperlipidemia E78.5 Left bundle branch block I44.7 Asthma J45.909 DVT prophylaxis Z29.9
--- NOTE | 2020-05-13 19:17 | Orthopedic Progress Note ---
Date of Service May 13, 2020 Assessment & Plan (1) Degenerative joint disease of right hip: s/p R TIKI -ancef x 24 -DVT PPX: SCDs, TEDs, 81mg ASA BID -PT/OT -WBAT RLE -PO XR demonstrates well aligned well fixed prothesis without fracture/dislocation -am labs -DC planning Admission and Anticipated Discharge Date Admission Date: May 13, 2020 Subjective Post Operative Progress Note Patient seen sitting in chair bedside eating dinner, comfortable, denies complaints, pain well controlled, no acute issues. Review of Systems Review of Systems: All systems reviewed & are unremarkable except as noted in HPI & below Constitutional: as per Subjective / HPI Physical Exam Physical Exam: RLE NVSI +EHL/FHL/TA/GS SILT grossly, +2 DP pulse, compartments soft NT, dressing cdi. Constitutional: WD/WN, vitals as above Results & Data ([facility]) Vital Signs (Past 12 Hours) Vital Signs Temp Pulse Pulse Resp BP Pulse Ox 05/13/20 19:03 36.6 C 82 17 97/57 L 96 05/13/20 15:13 36.9 C 89 18 108/66 96 05/13/20 13:20 75 18 99/59 L 95 05/13/20 12:39 75 18 108/66 95 05/13/20 11:20 74 18 120/75 97 05/13/20 10:39 36.8 C 67 18 113/74 98 05/13/20 10:20 36.3 C L 71 19 107/66 99 05/13/20 10:05 64 12 124/72 100 05/13/20 09:50 67 13 109/68 100 05/13/20 09:35 36.3 C L 64 19 98/60 L 100 05/13/20 09:25 66 15 99/67 L 100 05/13/20 09:17 36.0 C L 74 22 102/59 L 99
[2020-05-13] MEDS ORDERED: SENNA 8.6 MG TAB PO SCH (21:00)
[2020-05-14] MEDS: ACETAMINOPHEN 500 MG TAB PO SCH ×2 (06:01→13:30)
[2020-05-14 06:05] LABS: Hematocrit (blood only) 27.1 % (37-47); Hemoglobin 8.8 g/dL (12.0-16.0); Immature Granulocytes # (auto) 0.02 K/uL (0.00-0.02); Immature Granulocytes % (auto) 0.2 %; Lymphocytes # (auto) 0.74 K/uL (1.2-3.4); Lymphocytes % (auto) 7.8 %; Mean Corpuscular Hemoglobin 31.9 pg (25-34); Mean Corpuscular Hgb Conc 32.5 g/dL (32-36); Mean Corpuscular Volume 98.2 fL (80-100); Mean Platelet Volume 8.9 fL (7.4-10.4); Monocytes # (auto) 0.73 K/uL (0.11-0.59); Monocytes % (auto) 7.7 %; Neutrophils # (auto) 7.97 K/uL (1.4-6.5); Neutrophils % (auto) 84.3 %; Platelet Count 182 K/uL (130-400); RDW Coefficient of Variation 13.4 % (11.5-14.5); RDW Standard Deviation 47.8 fL (36.4-46.3); Red Blood Count 2.76 M/uL (4.2-5.4); White Blood Count 9.46 K/uL (4.8-10.8)
[2020-05-14 06:27] LABS: BUN Creatinine Ratio 20.9 (10-20); Calcium 9.2 mg/dl (8.5-10.1); Creatinine Clr Calc Pharmacy 38.3 ml/min; Est GFR (African American) 45.4; Est GFR (Non-African American) 39.2; Potassium 4.1 mmol/L (3.5-5.1)
--- NOTE | 2020-05-14 07:39 | Orthopedic Progress Note ---
Date of Service May 14, 2020 Assessment & Plan (1) Degenerative joint disease of right hip: s/p R TIKI POD#1 -ancef x 24 -DVT PPX: SCDs, TEDs, 81mg ASA BID -PT/OT -WBAT RLE -PO XR demonstrates well aligned well fixed prothesis without fracture/dislocation -am labs - as above, hgb 8.8 -DC planning - home with HH Admission and Anticipated Discharge Date Admission Date: May 13, 2020 Subjective Post Operative Progress Note Patient seen sitting up in bed, comfortable, denies complaints, pain well controlled, no acute issues. Denies F/C/N/V/SOB/CP. Review of Systems Review of Systems: All systems reviewed & are unremarkable except as noted in HPI & below Constitutional: as per Subjective / HPI Physical Exam Physical Exam: RLE NVSI +EHL/FHL/TA/GS SILT grossly, +2 DP pulse, compartments soft NT, dressing cdi. Constitutional: WD/WN, vitals as above Results & Data ([facility]) Vital Signs (Past 12 Hours) Vital Signs Temp Pulse Pulse Resp BP Pulse Ox 05/14/20 02:46 36.9 C 79 16 94/56 L 95 05/13/20 23:16 36.8 C 84 16 92/54 L 98 05/13/20 21:00 36.5 C 80 18 114/57 L 94 Laboratory Results 05/14/20 05/14/20 05/13/20 Range/Units 05:50 05:50 06:01 WBC 9.46 (4.8-10.8) K/uL RBC 2.76 L (4.2-5.4) M/uL Hgb 8.8 L (12.0-16.0) g/dL Hct 27.1 L (37-47) % MCV 98.2 (80-100) fL MCH 31.9 (25-34) pg MCHC 32.5 (32-36) g/dL RDW Std Deviation 47.8 H (36.4-46.3) fL RDW Coeff of Charles 13.4 (11.5-14.5) % Plt Count 182 (130-400) K/uL MPV 8.9 (7.4-10.4) fL Immature Gran % (Auto) 0.2 % Neut % (Auto) 84.3 % Lymph % (Auto) 7.8 % Wirt % (Auto) 7.7 % Eos % (Auto) 0.0 % Baso % (Auto) 0.0 % Neut # (Auto) 7.97 H (1.4-6.5) K/uL Lymph # (Auto) 0.74 L (1.2-3.4) K/uL Wirt # (Auto) 0.73 H (0.11-0.59) K/uL Eos # (Auto) 0.00 (0-0.5) K/uL Baso # (Auto) 0.00 (0-0.2) K/uL Immature Gran # (Auto) 0.02 (0.00-0.02) K/uL Sodium 140 (136-145) mmol/L Potassium 4.1 (3.5-5.1) mmol/L Chloride 109 H (98-107) mmol/L Carbon Dioxide 25 (21-32) mmol/L Anion Gap 6.0 (3-11) BUN 28 H (7-18) mg/dl Creatinine 1.34 H (0.6-1.2) mg/dl Est Cr Clr Drug Dosing 38.3 ml/min Est GFR ( Amer) 45.4 Est GFR (Non-Af Amer) 39.2 BUN/Creatinine Ratio 20.9 H (10-20) Glucose 123 H (70-99) mg/dl Calcium 9.2 (8.5-10.1) mg/dl Hepatitis C Ab Screen Neg (Neg)
--- NOTE | 2020-05-14 08:14 | Anesthesiology Progress Note ---
Date of Service May 14, 2020 Anesthesia Post Procedure Vital Signs Vital Signs: Temp Pulse Pulse Pulse Resp BP Pulse Ox 05/14/20 02:46 36.9 C 79 16 94/56 L 95 05/13/20 23:16 36.8 C 84 16 92/54 L 98 05/13/20 21:00 36.5 C 80 18 114/57 L 94 05/13/20 19:03 36.6 C 82 17 97/57 L 96 05/13/20 15:13 36.9 C 89 18 108/66 96 05/13/20 13:20 75 18 99/59 L 95 05/13/20 12:39 75 18 108/66 95 05/13/20 11:20 74 18 120/75 97 05/13/20 10:39 36.8 C 67 18 113/74 98 05/13/20 10:20 36.3 C L 71 19 107/66 99 05/13/20 10:05 64 12 124/72 100 05/13/20 09:50 67 13 109/68 100 05/13/20 09:35 36.3 C L 64 19 98/60 L 100 05/13/20 09:25 66 15 99/67 L 100 05/13/20 09:17 36.0 C L 74 22 102/59 L 99 Notes Mental Status: alert / awake / arousable Nausea / Vomiting: adequately controlled Pain: adequately controlled Airway Patency, RR, SpO2: stable & adequate BP & HR: stable & adequate Hydration State: stable & adequate Neuraxial Anesthesia: was administered and sensory block resolved Anesthetic Complications: no major complications apparent and Pt Satisfied with anesthetic care
[2020-05-14] MEDS: DOCUSATE SODIUM 100 MG CAP PO SCH (08:35)
[2020-05-14] MEDS: MULTIVITAMIN TAB PO SCH (08:36)
[2020-05-14] MEDS: LISINOPRIL/HCTZ 10/12.5MG TAB PO SCH (08:37)
[2020-05-14] MEDS: ATORVASTATIN 10 MG TAB PO SCH (08:37)
[2020-05-14] MEDS ORDERED: ASPIRIN 81 MG ECTAB PO SCH (09:00)
[2020-05-14] MEDS: OXYCODONE HCL IR 5 MG TAB (IMMEDIATE RELEASE) PO PRN (09:48)
--- NOTE | 2020-05-14 22:17 | Discharge Summary ---
Date of Service May 14, 2020 Admission HPI Per Admitting Provider The patient is a 75 year old female who presents with complaints of severe right hip pain and DJD. The patient has failed outpatient conservative treatments to this point which included NSAIDs, home exercise/walking program. The patient's pain and limited function have progressed to the point where they severely hinder their activities of daily living and they no longer tolerate exercise programs. They are requesting to proceed with total hip replacement surgery. Principal Diagnosis Right total hip replacement -Right hip DJD Discharge Exam RLE NVSI +EHL/FHL/TA/GS SILT grossly, +2 DP pulse, compartments soft NT, dressing cdi. Constitutional WD/WN, vitals as above Discharge Data Allergies Allergy/AdvReac Type Severity Reaction Status Date / Time aspirin Allergy Intermediate wheezing Verified 05/13/20 05:38 etodolac Allergy Intermediate wheezing Verified 05/13/20 05:38 animal dander Allergy Unknown wheezing, Verified 05/13/20 05:38 cough, sneezing flurbiprofen Allergy Unknown wheezing, Verified 05/13/20 05:38 cough, sneezing pollen extracts Allergy Unknown wheezing, Verified 05/13/20 05:38 cough, sneezing ibuprofen AdvReac Intermediate Unknown Verified 05/13/20 05:38 Consultations 05/14/20 08:00 Consult Case Management - Discharge Planning Routine Procedures Performed Operation Date: 05/13/20 07:15 Actual Procedures p Right Total Hip Arthroplasty - Posterior(Right) - Curtis Cancino DO Hospital Course (1) Degenerative joint disease of right hip: The patient is a 75 -year-old female who presents with long standing history of severe right hip DJD and failed outpatient conservative treatments. The patient's symptoms have progressed to the point where it has been difficult to perform even normal activities of daily living. I indicated the patient for a right total hip arthroplasty, the risks, benefits and complications of the procedure include but not limited to infection, bleeding, damage to bone, nerves, vessels, surrounding soft tissue, may develop blood clots, loss of function, leg length discrepancy, dislocation, failure of the components, loosening of the components, the need for additional surgery and . The patient wished to proceed with surgery at this time and informed consent was obtained. Hospital Course: On 05/13/20 the patient was taken to the operating room, adequate anesthesia administered and underwent a right total hip arthroplasty. The patient tolerated the procedure well and was taken to the PACU in stable condition. Post-operatively the patient was started on a DVT ppx medication and given appropriate IV antibiotics. Consults were placed to physical therapy, occupational therapy and case management. On POD#1, the patient did well overnight and their pain was well controlled. Labs were drawn and the Hgb was 8.8. The patient progressed well with PT. Dressings were changed at this time and the incision was clean, dry and intact. The patients hospital stay was relatively uneventful and they were deemed stable by the orthopedic team and consultants to be discharged home with HH on 05/14/20. Discharge Instructions: Upon discharge the patient may weight bear as tolerates through their operative extremity. They were instructed to keep the incision clean and dry at all times. The patient may shower but should not submerge the incision, avoid bathing, pools and hot tubes. The patient was given a script for pain medication and should take as instructed. The patient was given a script for DVT ppx 81mg ASA BID and should take as directed. The patient was instructed to not drive or travel for long distances until cleared to do so. If the patient develops any symptoms of fevers, chills, nausea, vomiting, increased redness, s welling, pain or drainage from the surgical site, they should notify the office and/or proceed to the nearest emergency room. The patient should follow up in 10-14 days after surgery for their routine post-operative follow-up appointment and should call the office to confirm the date and time. s/p R TIKI POD#1 -ancef x 24 -DVT PPX: SCDs, TEDs, 81mg ASA BID -PT/OT -WBAT RLE -PO XR demonstrates well aligned well fixed prothesis without fracture/dislocation -am labs - as above, hgb 8.8 -DC planning - home with Total Time Total Time Spent Total Time Spent (In Minutes): 30 Discharge Plan Discharge Items Patient Disposition: Home - Home Health Services Reason For Visit: Unilateral Primary Osteoarthritis Discharge Diagnosis: Right total hip replacement Condition on Discharge: Good Activity: Per Instructions section Lifting: Wait until after follow-up appointment Bathing: Keep incision dry Bathing Comment: No bathing, pools or hot tubs Sexual Activity: Wait until after follow-up appointment Exercise/Sports: Wait until after follow-up appointment Driving/Machine Use: No driving Weightbearing: Full weightbearing Non-emergency contact: Primary Care Provider and Surgeon Call non-emergency contact if: you have any medication questions, your symptoms worsen, your pain is not controlled, your pain is worsening, your pain is unusual for you, your pain is concerning for you, you have a fever, your temperature is above 101, your wound has increased redness, your wound has increased drainage and your wound pain has increased Follow-up/Referrals: Tamiko Hinkle DO [Primary Care Provider] - Curtis Cancino DO [Physician] - 05/28/20 11:20 am (2 WEEK FOLLOW UP APPT; 6 WEEK FOLLOW UP 06/25/20 @ 0940) Diet: Regular Addtl Attending Provider Instructions: ACTIVITY RECOMMENDATIONS: SELF CARE INSTRUCTIONS AFTER TOTAL HIP REPLACEMENT Until the incision and soft tissues around your hip have healed, there is a possibility that the hip prosthesis could dislocate. A. Observe the following precautions to prevent dislocation: 1. Don't bend your hip greater than 90 degrees. 2. Avoid crossing your legs or ankles while standing or lying. 3. Sit with your feet placed 6 inches apart. 4. When sitting, keep your knees below your hips. Sit on a firm surface, avoid deep, soft chairs and couches. Use an elevated toilet seat in the bathroom. 5. Don't bend over at the waist. Use a long handled shoehorn and a sock aid to help you put on your shoes and socks. A microsoft systems engineer can help you pharmacy picking tech objects that are too high or too low to reach. 6. Keep car riding to a minimum for at least one month after surgery. B. Your balance may be shaky for a while. Use crutches or a walker until directed by your doctor. C. Use hand rails when walking on stairs. D. Wear low heeled shoes with non-slip soles. E. Be sure that your floors are free of things that could trip you - throw rugs, electrical cords, small objects. Avoid wet and waxed floors, especially with crutches and canes. F. Try to walk several times a day with rest periods between. G. Continue with all the exercises taught to you in the hospital. Again, make walking a part of your daily routine. SPECIAL CARE INSTRUCTIONS: VERY IMPORTANT TO READ AND REVIEW A. You may still be at risk for phlebitis and blood clots. 1. Wear surgical stockings (BRAD hose) for 2 weeks after surgery to improve circulation and reduce swelling. 2. Take Aspirin 81mg twice daily for 4 weeks or as directed by your doctor. This is your blood thinner. 3. High risk patients may be prescribed a stronger blood thinner if necessary. 4. If you are on Coumadin normally, your family doctor/protocol officer should monitor your blood work. Expect a phone call the day of or the day after bloodwork is drawn to adjust your dosage. B. You must take antibiotics before having dental work, bladder, bowel and other surgery. Your doctor will provide you with a permanent card to carry describing precautions. C. Call [facility] if you have a fever, redness or swelling around the incision, cloudy drainage from incision, or sudden increase in pain in your hip, not relieved by your regular pain medication. D. Please call the office at if you have any concerns or questions about your operation or recovery. * YOU MAY SHOWER, NO TUB BATHS UNTIL CLEARED BY YOUR DOCTOR. * WEAR BRAD HOSE 20 HOURS PER DAY FOR 2 WEEKS. * YOU SHOULD USE A WALKER OR CRUTCHES FOR 2-4 WEEKS. THIS WILL HELP PREVENT STRAIN ON YOUR HIP MUSCLE AND ALLOW IT TO HEAL PROPERLY. YOU MAY WEAN TO A CANE TOLERATED. * MOST PATIENTS WILL HAVE HOME NURSING FOR THERAPY. IF YOU DECIDE TO DO OUTPATIENT PHYSICAL THERAPY, PLEASE SCHEDULE THIS 3 TIMES PER WEEK. *PREVENA incisional vac is a special dressing covering your incision. This dressing provides a sterile dry environment while you are healing. The dressing is to be left in place for 7 days post-operatively. Your home nurse or surgeon will remove. If you develop any redness or blisters or have any questions notify your surgeon immediately. FOLLOW UP VISIT: If appointment is not already scheduled: Please call [facility] to make a follow-up appointment for 2 weeks after your surgery at . Pending Studies at Discharge: No Stand-Alone Forms: [facility], Opioid Pain Management, Smoking Cessation Medications and DC Order Prescriptions: New aspirin 81 mg Tablet,Delayed Release (Dr/Ec) 81 mg PO BID Qty: 56 RF: 0 acetaminophen 500 mg Tablet 1,000 mg PO Q8 PRN (Reason: pain/fevers) Qty: 90 RF: 0 oxycodone 5 mg Tablet 5 mg PO Q6H MDD 4 PRN (Reason: pain) Qty: 30 RF: 0 sennosides [Senokot] 8.6 mg Tablet 17.2 mg PO HS PRN (Reason: constipation) Qty: 28 RF: 0 Continued atorvastatin 10 mg Tablet 10 mg PO QAM RF: 0 cyanocobalamin (vitamin B-12) 1,000 mcg Tablet 1,000 mcg PO QAM RF: 0 lisinopril-hydrochlorothiazide 10-12.5 mg Tablet 1 tab PO QAM RF: 0 cholecalciferol (vitamin D3) [Vitamin D3] 50 mcg (2,000 unit) Tablet 50 mcg PO QAM RF: 0 albuterol sulfate [Ventolin HFA] 90 mcg/actuation Hfa Aerosol Inhaler 2 puff INHALATION Q6H PRN (Reason: Shortness Of Breath) RF: 0 fluticasone propionate 50 mcg/actuation [place],Suspension 1 spray INTRANASAL DAILY PRN (Reason: Allergy Symptoms) RF: 0 Discontinued acetaminophen [Tylenol 8 Hour] 650 mg Tablet Extended Release 650 mg PO Q8H PRN (Reason: Pain) RF: 0 naproxen sodium [Aleve] 220 mg Tablet 220 mg PO BID PRN (Reason: Pain) RF: 0 Discharge Orders: Discharge Order (Routine); Ordered 05/14/20 Ordered By: Curtis Simon/Other Patient Handouts: Hip Arthroscopy: After Surgery Admission Data Admit Date/Time: 05/13/20 22:16 Attending Provider: Curtis Cancino Admit Provider: Curtis Cancino Primary Care Provider: Tamiko Hinkle Other Providers: [facility],Home Health Other Interventions: Discharge Summary Assessment (RN) Last Done: 05/14/20 12:32
== END 2020-05-14 14:12 | disposition home health service (06) ==
LOC: ASU 05:15 → 3N 05:15

== ENCOUNTER 2020-06-10 05:42 | Inpatient (IN) ==
[2020-06-10] MEDS ORDERED: VANCOMYCIN HCL 1,000 MG/270 ML BAG IV SCH (06:00)
[2020-06-10] MEDS ORDERED: CEFAZOLIN 2000MG 2,000 MG/15 ML SYR IV SCH (06:00)
[2020-06-10] MEDS ORDERED: ROPIVACAINE 0.5% HCL/PF 150 MG, BUPIVACAINE 0.5% MPF 30 ML, EPINEPHrine 0.15 MG, Ketoro... INFIL SCH (06:00)
[2020-06-10] MEDS ORDERED: ONDANSETRON INJ 2 MG/ML 2 ML VIAL IV STA (06:18)
[2020-06-10 06:37] LABS: Basophils # (auto) 0.01 K/uL (0-0.2); Basophils % (auto) 0.1 %; Eosinophils # (auto) 0.12 K/uL (0-0.5); Eosinophils % (auto) 1.5 %; Hematocrit (blood only) 29.4 % (37-47); Hemoglobin 9.2 g/dL (12.0-16.0); Lymphocytes # (auto) 0.74 K/uL (1.2-3.4); Lymphocytes % (auto) 9.4 %; Mean Corpuscular Hemoglobin 30.5 pg (25-34); Mean Corpuscular Hgb Conc 31.3 g/dL (32-36); Mean Corpuscular Volume 97.4 fL (80-100); Mean Platelet Volume 8.7 fL (7.4-10.4); Monocytes # (auto) 0.31 K/uL (0.11-0.59); Monocytes % (auto) 3.9 %; Neutrophils # (auto) 6.73 K/uL (1.4-6.5); Neutrophils % (auto) 85.1 %; Platelet Count 233 K/uL (130-400); RDW Coefficient of Variation 13.4 % (11.5-14.5); RDW Standard Deviation 47.6 fL (36.4-46.3); Red Blood Count 3.02 M/uL (4.2-5.4); White Blood Count 7.91 K/uL (4.8-10.8)
[2020-06-10] MEDS: MoRPHine SULFATE 4 MG/ML 1 ML CARP\\VIAL IV PRN ×3 (06:37→11:59)
--- NOTE | 2020-06-10 06:37 | XRay Report ---
XR hip RT 2V w pelvis HISTORY: 75 years-old Female Hip pain. Had replacement about 1 month ago acute bilateral hip and pel aarti pain COMPARISON: Pelvis and right hip radiographs 05/13/2020 TECHNIQUE: AP view of the pelvis with 2 views of the right hip FINDINGS: Bilateral hip total joint arthroplasties. There is an acute periprosthetic fracture involving the med ial cortex of the subtrochanteric proximal diaphyseal right femur with separation of the fracture fra gments measuring up to 5 mm. The hardware within the left hip appears normal. Demineralized appearanc e of the bones. Multilevel degenerative changes of the lumbar spine. 5.2 cm calcification within the left hemipelvis is suggestive of a calcified uterine fibroid. IMPRESSION: Bilateral hip total joint arthroplasties. There is an acute periprosthetic fracture invol ving the medial cortex of the subtrochanteric proximal diaphyseal right femur. ACT 112: Negative or not required by law. The above report was generated using voice recognition software. It may contain grammatical, syntax o r spelling errors. Electronically signed by: Liam Alvarez M.D. 06/10/2020 6:35 AM
[2020-06-10] MEDS: SODIUM CHLORIDE 0.9% 500 ML IV SCH ×4 (06:38→20:13)
[2020-06-10 06:54] LABS: Albumin Level 3.2 gm/dl (3.4-5.0); BUN Creatinine Ratio 25.1 (10-20); Calcium 9.4 mg/dl (8.5-10.1); Est GFR (African American) 67.2; Est GFR (Non-African American) 57.9; Potassium 4.2 mmol/L (3.5-5.1)
[2020-06-10 06:57] LABS: Bilirubin,Total 0.8 mg/dl (0.2-1); Globulin 3.3 gm/dl (2.5-4.0); Total Protein 6.5 gm/dl (6.4-8.2)
[2020-06-10] MEDS ORDERED: VANCOMYCIN CONSULT ACTIVE PRN ×2 (07:10→19:25)
[2020-06-10 07:26] LABS: INR 1.1 (0.9-1.1); Partial Thromboplastin Ratio 0.9; Partial Thromboplastin Time 24.5 Seconds (21.0-31.0); Prothrombin Time 11.4 Seconds (9.0-12.0)
--- NOTE | 2020-06-10 07:30 | XRay Report ---
XR chest 1V portable HISTORY: Hip fracture. Preop testing. COMPARISON: Chest 04/14/2020. FINDINGS: No pneumothorax. No pleural effusions. The cardiac sweating is mildly enlarged. Mild diffus e interstitial thickening has progressed. This may represent mild congestive change. Right cardiophre jennifer lobular density persists. This measures 4.7 cm. Bilateral total shoulder arthroplasties. IMPRESSION: 1. Cardiomegaly and mild interstitial thickening which has progressed. This could represent mild salma estive change. 2. A 4.7 cm right cardiophrenic angle lobular density persists. This is nonspecific and could be due to a diaphragmatic hernia or pericardial cyst. Follow-up nonemergent chest CT recommended for confirm ation as this was not present on the 2015 examination. 3. These findings were called/faxed to the referring physician following dictation. ACT 112: Negative or not required by law. Electronically signed by: Ethan Polanco M.D. 06/10/2020 7:29 AM
--- NOTE | 2020-06-10 08:17 | Hospitalist Consultation ---
Date of Consultation June 10, 2020 Assessment & Plan (1) Periprosthetic hip fracture: Patient has periprostatic hip fractures slated for surgery on 06/10/2020. At this point time there is no medical contraindication to surgery. Should be noted she has been on twice daily aspirin as a DVT prophylaxis after her surgery in April and this may create some increased bleeding we will watch her closely for acute blood loss anemia postoperatively (2) Hypertension: Patient's lisinopril hydrochlorothiazide has been on hold. We will watch her blood pressure in the perioperative period and augment blood pressure control if required (3) Asthma: This patient asthma has been stable we will offer her albuterol inhaler if need be (4) DVT prophylaxis: Previously DVT prophylaxis is been aspirin twice daily surgical preference will still dictate choice of DVT prevention in the perioperative period History of Present Illness History of Present Illness 75-year-old female discharged from our facility May 14 after a right total hip replacement. Patient states she had discomfort starting around May 23 which progressively worsened and then on the evening prior to admission had significant pain upon standing from a seated position and bending forward to pick something off the ground. The pain was such that she could not longer ambulate and called 911 she presented to the emergency department was found to have a periprosthetic hip fracture of the right hip. Between her discharge and now she is had no other health concerns. Her antihypertensive medications have been on hold due to some hypotension postoperatively. She has had no chest pain or pressure she has had no orthopnea she has had no melena and has had no constipation. Allergies Allergy/AdvReac Type Severity Reaction Status Date / Time aspirin Allergy Intermediate wheezing Verified 06/10/20 06:31 etodolac Allergy Intermediate wheezing Verified 06/10/20 06:31 animal dander Allergy Unknown wheezing, Verified 06/10/20 06:31 cough, sneezing flurbiprofen Allergy Unknown wheezing, Verified 06/10/20 06:31 cough, sneezing pollen extracts Allergy Unknown wheezing, Verified 06/10/20 06:31 cough, sneezing ibuprofen AdvReac Intermediate Unknown Verified 06/10/20 06:31 Home Medications Home Medications Medication Instructions Recorded Confirmed Type albuterol sulfate [Ventolin HFA] 2 puff INHALATION Q6H PRN 04/10/20 06/10/20 History atorvastatin 10 mg PO QAM 04/10/20 06/10/20 History cholecalciferol (vitamin D3) 50 mcg PO QAM 04/10/20 06/10/20 History [Vitamin D3] cyanocobalamin (vitamin B-12) 1,000 mcg PO QAM 04/10/20 06/10/20 History fluticasone propionate 2 spray INTRANASAL DAILY 04/10/20 06/10/20 History lisinopril-hydrochlorothiazide 1 tab PO QAM 04/10/20 06/10/20 History acetaminophen 1,000 mg PO Q8 PRN #90 tab 05/13/20 06/10/20 Rx aspirin 81 mg PO BID #56 tab 05/13/20 06/10/20 Rx oxycodone 5 mg PO Q6H PRN #30 tab MDD 4 05/13/20 06/10/20 Rx sennosides [Senokot] 17.2 mg PO HS PRN #28 tab 05/13/20 06/10/20 Rx celecoxib 100 mg PO BID 06/10/20 06/10/20 History Patient History Medical History (Updated 06/10/20 @ 08:14 by Yosi Weathers MD) Asthma well controlled DJD (degenerative joint disease) Hyperlipidemia Hypertension Left bundle branch block dating back to at least 06/2012 per 410 Labs records Obesity Osteoarthritis Urge incontinence Surgical History Basal cell carcinoma of scalp> removed History of carpal tunnel release left History of colonoscopy History of decompression of ulnar nerve right History of tooth extraction History of total hip arthroplasty left History of total shoulder replacement bilat Status post trigger finger release left hand Social History Smoking Status: Never smoker Second Hand Exposure: No; Hx Alcohol Use: Yes Alcohol type: wine Hx Substance Use: No Preferred Language: Estonian Communication Ability: Effective Resistor Tester Required: No Beliefs That Will Affect Care: None Current Living Situation: Family Other Information That Helps Us Care for You: No Feels Safe at Home: Yes Safety Concerns: Feels Safe At This Time Assistive Devices: Glasses and Walker Review of Systems Review of Systems: Moderate distress due to hip pain and fatigue from being up most of the night no headache, blurry or double vision no speech or swallowing issues no chest pain, pressure or palpitations no shortness of breath, cough or wheezes no abdominal pain, nausea or vomiting, diarrhea or constipation no dysuria, hematuria or frequency Right hip discomfort no back pain, CVA tenderness or radicular pain no bruising, bleeding or rashes no focal signs of weakness or numbness or altered sensation no complaints or anxiety or depression. Physical Exam Physical Exam: The patient appeared well nourished and normally developed. Vital signs as documented. Head exam is normocephalic atraumatic no scleral icterus Neck is without JVD, thyromegaly, or carotid bruits. Lungs are clear to auscultation, no focal loss of breath sounds Cardiac exam, Rhythm is regular.. No murmurs, rubs or gallops. Abdominal exam reveals normal bowel sounds, soft non tender, no masses Extremities are with trace bilateral pretibial edema there is no leg shortening or rotation of the right leg she has good sensation distally and good capillary refill Neurologic exam is alert and oriented, no focal loss of strength or sensation her right leg is limited due to pain Skin is without bruises or rashes Psychologically is without concerns for anxiety or depression. Results & Data Results & [facility] ([facility]) Vital Signs (Past 12 Hours) Vital Signs Temp Pulse Pulse Resp BP BP Pulse Ox 06/10/20 07:55 87 20 160/77 H 98 06/10/20 07:01 68 18 152/108 H 98 06/10/20 05:45 98.4 F 70 20 179/94 H 98 PG Care Time/CCT Total # of Minutes Spent Total Time Spent with Patient: Total time spent is greater than 50% in coordination of care (as documented) at patient's floor/unit and/or counseling patient: Coding Level of Care Code 02717 Inpt Consult Level 3 Diagnoses Periprosthetic hip fracture M97.8XXA; Z96.649 Hypertension I10 Asthma J45.909 DVT prophylaxis Z29.9
[2020-06-10] MEDS ORDERED: HYDROmorphone INJ 0.5 MG/0.5 ML SYR IV PRN (08:39)
[2020-06-10] MEDS ORDERED: ONDANSETRON INJ 2 MG/ML 2 ML VIAL IV PRN ×3 (08:39→19:25)
[2020-06-10] MEDS ORDERED: ALBUTEROL HFA 8 GM INHALER INH PRN (08:39)
[2020-06-10] MEDS: DOCUSATE SODIUM 100 MG CAP PO SCH ×2 (10:08→20:21)
[2020-06-10] MEDS: ATORVASTATIN 10 MG TAB PO SCH (10:08)
[2020-06-10] MEDS: LISINOPRIL/HCTZ 10/12.5MG TAB PO SCH (10:10)
--- NOTE | 2020-06-10 10:15 | History & Physical Report ---
Date of Service June 10, 2020 Assessment & Plan (1) Periprosthetic hip fracture: The patient is a 75-year-old female with a right hip B2 periprosthetic femur fracture. I have indicated the patient for a revision right total hip arthroplasty, femoral component and ORIF proximal femur. The risks and benefits were explained in detail which included but not limited to infection, bleeding, blood clot, damage to surrounding bone, nerves, vessels, soft tissue, malunion, nonunion hip dislocation, failure of the prosthesis, leg length discrepancy, need for additional surgery and . The patient agreed to proceed with replacement of the hip and informed consent was obtained. Hold anticoagulation N.p.o. Bedrest Medical consultation COVID test negative Antibiotics on-call to the OR Admission and Anticipated Discharge Date Admission Date: June 10, 2020 History of Present Illness Chief Complaint: Right hip proximal femur periprosthetic fracture Primary Care Provider: Tamiko Hinkle DO The patient is a 75-year-old female with recent surgical history for right total hip arthroplasty performed on 05/13/2020. Her postoperative period was relatively uneventful and she was progressing well with physical therapy. The patient reports that last night she dropped a Tylenol on the floor and her cat was trying to get to it and she quickly leaned down and twisted and subsequently developed increasing right hip pain and inability to bear weight or ambulate. The patient was seen at [facility] emergency department and x-rays confirmed a proximal femur periprosthetic fracture. The patient denies falling or trauma. Denies F/C/N/V/SOB/CP. Allergies Allergy/AdvReac Type Severity Reaction Status Date / Time aspirin Allergy Intermediate wheezing Verified 06/10/20 06:31 etodolac Allergy Intermediate wheezing Verified 06/10/20 06:31 animal dander Allergy Unknown wheezing, Verified 06/10/20 06:31 cough, sneezing flurbiprofen Allergy Unknown wheezing, Verified 06/10/20 06:31 cough, sneezing pollen extracts Allergy Unknown wheezing, Verified 06/10/20 06:31 cough, sneezing ibuprofen AdvReac Intermediate Unknown Verified 06/10/20 06:31 Home Medications Home Medications Medication Instructions Recorded Confirmed Type albuterol sulfate [Ventolin HFA] 2 puff INHALATION Q6H PRN 04/10/20 06/10/20 History atorvastatin 10 mg PO QAM 04/10/20 06/10/20 History cholecalciferol (vitamin D3) 50 mcg PO QAM 04/10/20 06/10/20 History [Vitamin D3] cyanocobalamin (vitamin B-12) 1,000 mcg PO QAM 04/10/20 06/10/20 History fluticasone propionate 2 spray INTRANASAL DAILY 04/10/20 06/10/20 History lisinopril-hydrochlorothiazide 1 tab PO QAM 04/10/20 06/10/20 History acetaminophen 1,000 mg PO Q8 PRN #90 tab 05/13/20 06/10/20 Rx aspirin 81 mg PO BID #56 tab 05/13/20 06/10/20 Rx oxycodone 5 mg PO Q6H PRN #30 tab MDD 4 05/13/20 06/10/20 Rx sennosides [Senokot] 17.2 mg PO HS PRN #28 tab 05/13/20 06/10/20 Rx celecoxib 100 mg PO BID 06/10/20 06/10/20 History Past Med/Surg History Medical History Asthma well controlled DJD (degenerative joint disease) Hyperlipidemia Hypertension Left bundle branch block dating back to at least 06/2012 per [email or web address] records Obesity Osteoarthritis Urge incontinence Surgical History Basal cell carcinoma of scalp> removed History of carpal tunnel release left History of colonoscopy History of decompression of ulnar nerve right History of tooth extraction History of total hip arthroplasty left History of total shoulder replacement bilat Status post trigger finger release left hand Social History Smoking Status: Never smoker Second Hand Exposure: No; Hx Alcohol Use: Yes Alcohol type: wine Hx Substance Use: No Preferred Language: Occitan Communication Ability: Effective Caregiver Assisted Living Required: No Beliefs That Will Affect Care: None Current Living Situation: Family Feels Safe at Home: Yes Assistive Devices: Glasses and Walker Review of Systems Review of Systems: All systems reviewed & are unremarkable except as noted in HPI & below Constitutional: as per Subjective / HPI Physical Exam Physical Exam: RLE NVSI +EHL/FHL/TA/GS SILT grossly, +2 DP pulse, compartments soft NT, incision cdi. Constitutional: WD/WN, vitals as above Eyes: PERRL, conjunctivae normal, anicteric sclerae ENMT: external ear and nose normal, oropharynx normal Neck: trachea midline, no thyromegaly Respiratory: normal respiratory effort, lungs clear to auscultation Cardiovascular: RRR, no murmur, no edema Gastrointestinal (Abdomen): normal bowel sounds, soft, nontender, no hepatospl enomegaly Musculoskeletal: no cyanosis or clubbing, extremities motor strength 5/5 Skin: no rashes, warm and dry Neurologic: patellar DTR's 2+ bilat, sensation intact Psychiatric: A+Ox3, euthymic affect Lymphatic: no cervical or axillary lymphadenopathy Results & Data Results & Data ([facility]) Vital Signs (Past 12 Hours) Vital Signs Temp Pulse Pulse Resp BP BP Pulse Ox 06/10/20 08:41 36.8 C 77 18 185/84 H 97 06/10/20 07:55 87 20 160/77 H 98 06/10/20 07:01 68 18 152/108 H 98 06/10/20 05:45 36.9 C 70 20 179/94 H 98 Laboratory Results 06/10/20 06/10/20 06/10/20 Range/Units 07:07 07:06 06:28 WBC (4.8-10.8) K/uL RBC (4.2-5.4) M/uL Hgb (12.0-16.0) g/dL Hct (37-47) % MCV (80-100) fL MCH (25-34) pg MCHC (32-36) g/dL RDW Std Deviation (36.4-46.3) fL RDW Coeff of Charles (11.5-14.5) % Plt Count (130-400) K/uL MPV (7.4-10.4) fL Immature Gran % (Auto) % Neut % (Auto) % Lymph % (Auto) % [place] % (Auto) % Eos % (Auto) % Baso % (Auto) % Neut # (Auto) (1.4-6.5) K/uL Lymph # (Auto) (1.2-3.4) K/uL [place] # (Auto) (0.11-0.59) K/uL Eos # (Auto) (0-0.5) K/uL Baso # (Auto) (0-0.2) K/uL Immature Gran # (Auto) (0.00-0.02) K/uL PT 11.4 (9.0-12.0) Seconds INR 1.1 (0.9-1.1) APTT 24.5 (21.0-31.0) Seconds PTT Ratio 0.9 Sodium 144 (136-145) mmol/L Potassium 4.2 (3.5-5.1) mmol/L Chloride 112 H (98-107) mmol/L Carbon Dioxide 26 (21-32) mmol/L Anion Gap 6.0 (3-11) BUN 24 H (7-18) mg/dl Creatinine 0.97 (0.6-1.2) mg/dl Est Cr Clr Drug Dosing 58.0 ml/min Est GFR ( Amer) 67.2 Est GFR (Non-Af Amer) 57.9 BUN/Creatinine Ratio 25.1 H (10-20) Glucose 88 (70-99) mg/dl Calcium 9.4 (8.5-10.1) mg/dl Total Bilirubin 0.8 (0.2-1) mg/dl AST 18 (15-37) U/L ALT 16 (12-78) U/L Alkaline Phosphatase 119 H (45-117) U/L Total Protein 6.5 (6.4-8.2) gm/dl Albumin 3.2 L (3.4-5.0) gm/dl Globulin 3.3 (2.5-4.0) gm/dl Albumin/Globulin Ratio 1.0 (0.9-2) Blood Type O Positive Antibody Screen NEGATIVE 06/10/20 Range/Units 06:28 WBC 7.91 (4.8-10.8) K/uL RBC 3.02 L (4.2-5.4) M/uL Hgb 9.2 L (12.0-16.0) g/dL Hct 29.4 L (37-47) % MCV 97.4 (80-100) fL MCH 30.5 (25-34) pg MCHC 31.3 L (32-36) g/dL RDW Std Deviation 47.6 H (36.4-46.3) fL RDW Coeff of Charles 13.4 (11.5-14.5) % Plt Count 233 (130-400) K/uL MPV 8.7 (7.4-10.4) fL Immature Gran % (Auto) 0.0 % Neut % (Auto) 85.1 % Lymph % (Auto) 9.4 % [place]rose % (Auto) 3.9 % Eos % (Auto) 1.5 % Baso % (Auto) 0.1 % Neut # (Auto) 6.73 H (1.4-6.5) K/uL Lymph # (Auto) 0.74 L (1.2-3.4) K/uL [place] # (Auto) 0.31 (0.11-0.59) K/uL Eos # (Auto) 0.12 (0-0.5) K/uL Baso # (Auto) 0.01 (0-0.2) K/uL Immature Gran # (Auto) 0.00 (0.00-0.02) K/uL PT (9.0-12.0) Seconds INR (0.9-1.1) APTT (21.0-31.0) Seconds PTT Ratio Sodium (136-145) mmol/L Potassium (3.5-5.1) mmol/L Chloride (98-107) mmol/L Carbon Dioxide (21-32) mmol/L Anion Gap (3-11) BUN (7-18) mg/dl Creatinine (0.6-1.2) mg/dl Est Cr Clr Drug Dosing ml/min Est GFR ( Amer) Est GFR (Non-Af Amer) BUN/Creatinine Ratio (10-20) Glucose (70-99) mg/dl Calcium (8.5-10.1) mg/dl Total Bilirubin (0.2-1) mg/dl AST (15-37) U/L ALT (12-78) U/L Alkaline Phosphatase (45-117) U/L Total Protein (6.4-8.2) gm/dl Albumin (3.4-5.0) gm/dl Globulin (2.5-4.0) gm/dl Albumin/Globulin Ratio (0.9-2) Blood Type Antibody Screen Diagnostic Findings XR hip RT 2V w pelvis HISTORY: 75 years-old Female Hip pain. Had replacement about 1 month ago acute bilateral hip and pelvic pain COMPARISON: Pelvis and right hip radiographs 05/13/2020 TECHNIQUE: AP view of the pelvis with 2 views of the right hip FINDINGS: Bilateral hip total joint arthroplasties. There is an acute periprosthetic fracture involving the medial cortex of the subtrochanteric proximal diaphyseal right femur with separation of the fracture fragments measuring up to 5 mm. The hardware within the left hip appears normal. Demineralized appearance of the bones. Multilevel degenerative changes of the lumbar spine. 5.2 cm calcification within the left hemipelvis is suggestive of a calcified uterine fibroid. IMPRESSION: Bilateral hip total joint arthroplasties. There is an acute peripr osthetic fracture involving the medial cortex of the subtrochanteric proximal diaphyseal right femur.
--- NOTE | 2020-06-10 10:50 | Anesthesiology Consultation ---
Date of Service June 10, 2020 Assessment & Plan (1) Encounter for pre-operative examination: Chart Review Chart Review: Acceptable Risk for Surgery History Surgery Operation Date: 06/10/20 09:30 Proposed Procedures p Right Total Hip Revision - Proximal Femur - Curtis Cancino DO Height/Weight Height: 5 ft 4 in Weight: 95.9 kg Allergies Allergy/AdvReac Type Severity Reaction Status Date / Time aspirin Allergy Intermediate wheezing Verified 06/10/20 06:31 etodolac Allergy Intermediate wheezing Verified 06/10/20 06:31 animal dander Allergy Unknown wheezing, Verified 06/10/20 06:31 cough, sneezing flurbiprofen Allergy Unknown wheezing, Verified 06/10/20 06:31 cough, sneezing pollen extracts Allergy Unknown wheezing, Verified 06/10/20 06:31 cough, sneezing ibuprofen AdvReac Intermediate Unknown Verified 06/10/20 06:31 Medications Home Medications Medication Instructions Recorded Confirmed Last Taken albuterol sulfate [Ventolin HFA] 2 puff INHALATION Q6H PRN 04/10/20 06/10/20 Unknown atorvastatin 10 mg PO QAM 04/10/20 06/10/20 05/13/20 04:15 cholecalciferol (vitamin D3) 50 mcg PO QAM 04/10/20 06/10/20 05/06/20 [Vitamin D3] cyanocobalamin (vitamin B-12) 1,000 mcg PO QAM 04/10/20 06/10/20 05/06/20 fluticasone propionate 2 spray INTRANASAL DAILY 04/10/20 06/10/20 Unknown lisinopril-hydrochlorothiazide 1 tab PO QAM 04/10/20 06/10/20 05/12/20 08:00 acetaminophen 1,000 mg PO Q8 PRN #90 tab 05/13/20 06/10/20 Unknown aspirin 81 mg PO BID #56 tab 05/13/20 06/10/20 Unknown oxycodone 5 mg PO Q6H PRN #30 tab MDD 4 05/13/20 06/10/20 Unknown sennosides [Senokot] 17.2 mg PO HS PRN #28 tab 05/13/20 06/10/20 Unknown celecoxib 100 mg PO BID 06/10/20 06/10/20 Unknown Active Medications Generic Name Dose Route Start Last Admin Trade Name Freq PRN Reason Stop Dose Admin Atorvastatin Calcium 10 mg 06/10/20 09:00 06/10/20 10:08 Atorvastatin 10 Mg Tab PO 07/10/20 08:59 10 mg QAM SURI Administration Docusate Sodium 100 mg 06/10/20 09:00 06/10/20 10:08 Docusate Sodium 100 Mg Cap PO 07/10/20 08:59 Not Given BID SURI Lisinopril/HCTZ 1 tab 06/10/20 09:00 06/10/20 10:10 Lisinopril/Hctz 10/12.5mg Tab PO 07/10/20 08:59 1 tab QAM SURI Administration Sodium Chloride 500 mls @ 125 mls/hr 06/10/20 06:30 06/10/20 10:39 Nss IV 07/10/20 06:29 Infused .Q4H SURI Infusion Morphine Sulfate 4 mg 06/10/20 06:18 06/10/20 09:28 Morphine Sulfate 4 Mg/Ml 1 Ml Carp\Vial IV 06/24/20 06:17 4 mg Q1H PRN Administration Pain Past Medical History Medical History Asthma well controlled DJD (degenerative joint disease) Hyperlipidemia Hypertension Left bundle branch block dating back to at least 06/2012 per [facility] records Obesity Osteoarthritis Urge incontinence Past Surgical History Surgical History Basal cell carcinoma of scalp> removed History of carpal tunnel release left History of colonoscopy History of decompression of ulnar nerve right History of tooth extraction History of total hip arthroplasty left History of total shoulder replacement bilat Status post trigger finger release left hand Social History Smoking Status: Never smoker Hx Alcohol Use: Yes Alcohol type: wine alcohol intake frequency: holidays/special occasions only Hx Substance Use: No substance use type: does not use Physical Exam Vital Signs Last Vital Signs Temp 36.8 C 06/10/20 08:41 Pulse 77 06/10/20 08:41 Resp 18 06/10/20 08:41 BP 185/84 H 06/10/20 08:41 Pulse Ox 97 06/10/20 08:41 Testing Laboratory Results 06/10/20 06:28 06/10/20 06:28 PT 11.4 Seconds (9.0-12.0) 06/10/20 07:06 INR 1.1 (0.9-1.1) 06/10/20 07:06 APTT 24.5 Seconds (21.0-31.0) 06/10/20 07:06 Blood Type O Positive 06/10/20 07:07 Antibody Screen NEGATIVE 06/10/20 07:07 COVID test today negative Electrocardiogram Findings: + NSR @ (70) and + LBBB (not new)
--- NOTE | 2020-06-10 12:54 | History & Physical Bridge Note ---
Date of Service June 10, 2020 History & Physical Bridge Note I have examined the patient, reviewed the History & Physical and in the interval since the performance of the History & Physical I have noted the following changes of clinical significance: no changes noted
[2020-06-10] MEDS ORDERED: MIDAZOLAM HCL 1 MG/ML 2ML VIAL ONE (14:58)
[2020-06-10] MEDS ORDERED: fentaNYL citrate 100 MCG/2 ML VIAL ONE (14:58)
[2020-06-10] MEDS ORDERED: BUPIVACAINE 0.5 % 5 MG/1 ML PF 10ML VIAL ONE (14:58)
[2020-06-10] MEDS ORDERED: ePHEDrine sulfate 50 MG/ML AMP IV PRN (15:01)
[2020-06-10] MEDS ORDERED: ATROPINE SULFATE 0.1 MG/ML 10ML SYR IV PRN (15:01)
[2020-06-10] MEDS ORDERED: fentaNYL citrate 100 MCG/2 ML VIAL IV PRN (15:01)
[2020-06-10] MEDS ORDERED: BACITRACIN INJ 50,000 UNIT VIAL ONE (15:09)
[2020-06-10] MEDS ORDERED: PROPOFOL IV EMULSION 10 MG/ML 20 ML VIAL IV ONE (15:11)
[2020-06-10] MEDS ORDERED: LIDOCAINE HCL 2% 2 ML VIAL/AMP(20MG/ML) INFIL ONE (15:11)
[2020-06-10] MEDS ORDERED: ORTHO JOINT ANESTHETIC ONE (15:40)
[2020-06-10] MEDS ORDERED: SODIUM CHLORIDE 0.9% INJ 10 ML VIAL ONE (16:55)
[2020-06-10] MEDS ORDERED: ALBUMIN HUMAN 5% 12.5 GM/250 ML VIAL IV ONE (16:57)
[2020-06-10] MEDS ORDERED: SODIUM CHLORIDE 0.9% 250 ML IV PRN (17:21)
--- NOTE | 2020-06-10 17:50 | Fluoroscopy Report ---
FL hip RT 1V CLINICAL HISTORY: Fracture.Postoperative study COMPARISON STUDY: FLUOROSCOPY TIME: 9 seconds. NUMBER OF FLUOROSCOPIC IMAGES: 4 FINDINGS: There are postsurgical changes of a total right hip arthroplasty revision. There is a new f emoral spike. There are proximal cerclage wires. These appear to fixate the previously described prox imal femoral fracture. IMPRESSION: Postsurgical changes of a total right hip arthroplasty revision with proximal femoral ce rclage wires noted. ACT 112: Negative or not required by law. Electronically signed by: Bro Mitchell M.D. 06/10/2020 5:49 PM
--- NOTE | 2020-06-10 18:15 | Post Operative Brief Note ---
Immediate Post Op Note v1 Date of Surgery June 10, 2020 Pre & Post Diagnosis Operation Date: 06/10/20 09:30 Pre-Op Diagnosis: Right Hip, Periprosthetic Fracture Post-Op Diagnosis: Right Hip, Periprosthetic Fracture I identified the patient and participated in the time-out.: Yes Procedure Operation Date: 06/10/20 09:30 Actual Procedures p Right Total Hip Revision femoral component, ORIF proximal femur- Curtis Cancino DO Surgeon Curtis Cancino DO Writer Producer Jensen Wang Estimated Blood Loss 400 Findings Consistent with Post-Op Diagnosis Fluids 1500 cc LR 500 cc albumin Specimens None Drains Hemovac Drain Anesthesia Type Spinal MAC Complications none Disposition Disposition: Recovery Room Overlapping Procedure I was present for: the critical portions of procedure. I was immediately available: during the entire case. Back up surgeon: was not required during procedure.
--- NOTE | 2020-06-10 18:15 | Operative Report ---
Post Operative Report Pre & Post Diagnosis Operation Date: 06/10/20 09:30 Pre-Op Diagnosis: Right Hip, Periprosthetic Fracture Post-Op Diagnosis: Right Hip, Periprosthetic Fracture I identified the patient and participated in the time-out.: Yes Procedure Operation Date: 06/10/20 09:30 Actual Procedures p Right Total Hip Revision - Proximal Femur(Right) - Curtis Cancino DO Surgeon Curtis Cancino DO Music Pastor Jensen Wang Estimated Blood Loss 400 Findings Consistent with Post-Op Diagnosis Fluids 1500 cc LR 500 cc albumin Specimens None Drains Hemovac drain Anesthesia Type Spinal MAC Complications none Disposition Disposition: Recovery Room Indications The patient is a 75-year-old female with recent surgical history for right total hip arthroplasty performed on 05/13/2020. Her postoperative period was relatively uneventful and she was progressing well with physical therapy. The patient reports that last night she dropped a Tylenol on the floor and her cat was trying to get to it and she quickly leaned down and twisted and subsequently developed increasing right hip pain and inability to bear weight or ambulate. The patient was seen at [facility] emergency department and x- rays confirmed a B2 periprosthetic proximal femur fracture. I have indicated the patient for a revision right total hip arthroplasty, femoral component and ORIF proximal femur. The risks and benefits were explained in detail which included but not limited to infection, bleeding, blood clot, damage to surrounding bone, nerves, vessels, soft tissue, malunion, nonunion hip dislocation, failure of the prosthesis, leg length discrepancy, need for additional surgery and . The patient agreed to proceed with replacement of the hip and informed consent was obtained. Description of Procedure Following induction of adequate spinal anesthesia, the patient was transferred to the OR table and placed in lateral decubitus position with left hip down. The right hip was prepped and draped in the typical sterile fashion and a posterolateral/Abrahan-Langenbeck incision was made inline with the previous incision. Subcutaneous tissue was sharply dissected. Electrocautery was utilized for hemostasis. The fascia was incised throughout the length of the wound and retracted with the Charnley retractor. Retained suture from previous surgery was removed. The bursa was taken down and the short external rotators and capsule were identified and tagged with two #1 Vicryl sutures. The short external rotators and capsule were divided from the posterior aspect of the femur using electrocautery. Both external rotators and posterior capsule were swept posterior and protected, along with protecting the sciatic nerve. Meticulous removal of intra-articular scar tissue was performed with bovie. The hip prosthesis was carefully dislocated by flexion and internal rotation in a controlled manner. The femoral head was removed from the trunion. Next, we turned our attention to the proximal femur and stem. I identified the fracture of the medial calcar extending inferiorly into the sub-troches region. The fracture fragment was minimally displaced. Carefully we removed all soft tissue debris and bone near the proximal aspect of the stem. The stem was grossly loose and easily removed without any additional bone loss. Next we turned our attention back to the fracture. The incision was extended distally to gain adequate exposure. The gluteus medius insertion was released and tendon was tagged. Soft tissue around the fracture was removed and the fracture site was cleared of all debris and retained blood clot. The fracture fragment was easily reduced and held in place with two 1.8 mm Manish cables. The retensioning bits were locked and held in place temporarily. Access to the femoral canal was gained with single starter reamer on T-handle. Sequential reaming was performed to 13.5 mm and a depth of 175 mm. Good cortical bone chatter was appreciated. Next we performed sequential broaching of the proximal femur to a size 14 broach which provided good fit and fill of the proximal femur. The broach handle was removed and trial implant left in place. Next, exposure of the acetabulum was obtained. Additional scar tissue removal a nd debridement of the intra-articular soft tissue was performed. Acetabular cup and liner stability was assessed and found to be stable and without signs of loosening or wear. A 36+6 femoral head was placed onto the stem with high offset neck and a trial reduction was carried out. The hip was found to be stable in all degrees of rotation with hip flexion and extension with no impingement and leg lengths were equal. Utilizing intraoperative C-arm fluoroscopy an x-ray was obtained at this time to assess positioning and fracture reduction. The stem surpassed the distal fracture site by at least 2 cortical diameter widths. The hip was dislocated once more, trial components were removed. Access to the proximal femur was once more gained and the final Size 14 Chris one piece stem with high offset neck length was impacted into place until well seated with good fit and fill of the proximal femur. The fracture site was reassessed and found to be in good position and the cables were retensioned and locked into place sequentially and excess cables cut. A 36+6 mm femoral head was impacted into place and the hip was reduced. Range of motion was checked once again and found to be stable. Once more utilizing C-arm fluoroscopy stem positioning and fracture reduction was assessed and found to be well aligned well fixed with anatomic position. A Betadine soak was performed at this time for 3 minutes and the wound was copiously irrigated with sterile saline solution with bacitracin. The briseida- incisional soft tissue was injected utilizing [facility] ortho mix which includes a combination of Ropivicaine 0.5% 150mg, Bupivicaine 0.5%/Epinephrine 1:200,000 30ml, Toradol 30mg, Dexamethasone 4mg, Ketamine 10mg, Clonidine 100mcg and NSS 30ml solution. The external rotators, capsule were repaired using #5 FiberWire. Primary repair of the gluteus muscles was performed with #5 FiberWire suture. Hemovac drain placed deep and superficial to fascial layer. The fascia was closed using #1 Vicryl, subcutaneous tissue was closed using 2-0 Vicryl, and skin was closed with devyn. Sterile dressings were applied which included MAXIME incisional VAC, drain sponges and foam tape. A abduction pillow was placed between the legs. The patient tolerated the procedure well and was transported to PACU in stable condition. Due to the complex nature of the procedure, the entire surgery was performed with the operational assistance of Jensen Wang PA-C. The research study assistant, under direct supervision, was involved in the actual performance of all aspects of the surgical procedure including patient positioning, hemostasis, tissue retraction, instrument management and wound closure. I attest to the content of the Intraoperative Record and any orders documented therein. Any exceptions are noted below.
[2020-06-10 19:02] LABS: iSTAT Creatinine 0.9 mg/dl (0.6-1.3); iSTAT Hemoglobin 7.5 g/dl (12.0-16.0); iSTAT Ionized Calcium 1.49 mmol/l (1.12-1.32)
--- NOTE | 2020-06-10 19:05 | XRay Report ---
XR hip 1V RT w pelvis CLINICAL HISTORY: Fracture. Hip revision. COMPARISON: 06/08/2020 DISCUSSION: There are bilateral total hip arthroplasties. There is been revision of the femoral compo nent of the total right hip arthroplasty. 2 proximal cerclage wires are visualized. The previously id entified fractures difficult to discern. There is a calcified uterine fibroid visualized. IMPRESSION: Interval revision of the femoral component of the total right hip arthroplasty with appli cation of 2 proximal cerclage wires. ACT 112: Negative or not required by law. Electronically signed by: Bro Mitchell M.D. 06/10/2020 7:03 PM
[2020-06-10] MEDS ORDERED: MEPERIDINE HCL 25 MG/ML CARP/VIAL IV STA (19:15)
[2020-06-10] MEDS ORDERED: MEPERIDINE HCL 25 MG/ML CARP/VIAL ONE (19:17)
[2020-06-10 19:20] LABS: Hematocrit (blood only) 27.9 % (37-47); Hemoglobin 8.8 g/dL (12.0-16.0)
--- NOTE | 2020-06-10 19:20 | Orthopedic Progress Note ---
Date of Service June 10, 2020 Assessment & Plan (1) Periprosthetic hip fracture: Status post revision right total hip arthroplasty, ORIF proximal femur -Ancef/Vanco x24 -DVT prophylaxis: SCDs, teds, Lovenox daily -Partial weightbearing 25% right lower extremity -PT/OT -Postoperative x-ray demonstrates a well aligned, well fixed total hip prosthesis and cables, anatomic alignment of medial calcar fracture. -A.m. labs -DC planning Admission and Anticipated Discharge Date Admission Date: June 10, 2020 Subjective Post Operative Progress Note Patient seen in PACU, receiving 1 unit of PRBC, comfortable, denies complaints, pain well controlled, no acute issues. Review of Systems Review of Systems: All systems reviewed & are unremarkable except as noted in HPI & below Constitutional: as per Subjective / HPI Physical Exam Physical Exam: RLE NVSI +EHL/FHL/TA/GS SILT grossly, +2 DP pulse, compartments soft NT, dressing cdi. Constitutional: WD/WN, vitals as above Results & Data ([place]) Vital Signs (Past 12 Hours) Vital Signs Temp Pulse Pulse Pulse Resp BP BP 06/10/20 19:00 83 21 127/70 06/10/20 18:50 81 18 117/77 06/10/20 18:42 36.0 C L 85 15 121/66 06/10/20 14:42 37 C 71 16 156/83 H 06/10/20 08:41 36.8 C 77 18 185/84 H 06/10/20 07:55 87 20 160/77 H Pulse Ox 06/10/20 19:00 95 06/10/20 18:50 99 06/10/20 18:42 99 06/10/20 14:42 98 06/10/20 08:41 97 06/10/20 07:55 98
[2020-06-10] MEDS ORDERED: bisacodyL 10 MG SUPP PR PRN (19:25)
[2020-06-10] MEDS ORDERED: MAGNESIUM HYDROXIDE SUSP 30 ML UDC PO PRN (19:25)
[2020-06-10] MEDS ORDERED: NALOXONE HCL 0.4 MG/1 ML VIAL/CARP IV PRN (19:25)
[2020-06-10] MEDS ORDERED: METOCLOPRAMIDE HCL INJ 5 MG/ML 2 ML VIAL IV PRN (19:25)
--- NOTE | 2020-06-10 19:29 | Anesthesiology Progress Note ---
Date of Service June 10, 2020 Anesthesia Post Procedure Vital Signs Vital Signs: Temp Pulse Pulse Pulse Resp BP BP 06/10/20 19:20 81 21 130/64 06/10/20 19:10 76 14 124/58 L 06/10/20 19:00 83 21 127/70 06/10/20 18:50 81 18 117/77 06/10/20 18:42 96.8 F L 85 15 121/66 06/10/20 14:42 98.6 F 71 16 156/83 H 06/10/20 08:41 98.2 F 77 18 185/84 H 06/10/20 07:55 87 20 160/77 H 06/10/20 07:01 68 18 152/108 H 06/10/20 05:45 98.4 F 70 20 179/94 H Pulse Ox 06/10/20 19:20 100 06/10/20 19:10 100 06/10/20 19:00 95 06/10/20 18:50 99 06/10/20 18:42 99 06/10/20 14:42 98 06/10/20 08:41 97 06/10/20 07:55 98 06/10/20 07:01 98 06/10/20 05:45 98 Pain Intensity Right Hip: Pain Intensity: 4 Transfer of Care Handoff Completed per policy Notes Mental Status: alert / awake / arousable and participated in evaluation Patient Amnestic to Procedure: Yes Nausea / Vomiting: adequately controlled Pain: adequately controlled Airway Patency, RR, SpO2: stable & adequate BP & HR: stable & adequate Hydration State: stable & adequate Neuraxial Anesthesia: was administered and sensory block is resolving Anesthetic Complications: no major complications apparent and Pt Satisfied with anesthetic care
[2020-06-10] MEDS: OXYCODONE HCL IR 5 MG TAB (IMMEDIATE RELEASE) PO PRN (20:19)
[2020-06-10] MEDS: SODIUM CHLORIDE 0.9% 1000ML 1,000 ML IV SCH (20:19)
[2020-06-10] MEDS: SENNA 8.6 MG TAB PO SCH ×2 (20:24→20:27)
[2020-06-10] MEDS ORDERED: DOCUSATE SODIUM 100 MG CAP PO SCH (21:00)
[2020-06-10] MEDS: ACETAMINOPHEN 500 MG TAB PO SCH (22:16)
[2020-06-10] MEDS: CEFAZOLIN 2000MG 2,000 MG/15 ML SYR IV SCH (23:57)
--- NOTE | 2020-06-11 01:22 | Emergency Department Note ---
History of Present Illness General Chief complaint: Hip Pain Stated complaint: HIP PAIN Time Seen by Provider: 06/10/20 05:45 History of Present Illness Maximum Pain Intensity: 7 This is a 75-year-old female presenting to the emergency department for evaluation of right hip pain and instability with walking. The patient had a right hip replacement performed roughly 3 weeks ago at this facility. She is doing home rehabilitation and has been doing fairly well postoperatively. She was using her walker today in the kitchen, twisted to bend down and pick something up, when she felt a popping sensation in the right hip. She did not fall to the ground, but states that she feels a lot of weakness and difficulty in the hip. She did contact EMS, who did give her 100 mcg fentanyl prehospital. She is not having head, neck, chest, or abdominal pain. No numbness or paresthesias. She rates her current discomfort a 1/10 and does feel better after analgesics prehospital. Home Medications Home Medications Medication Instructions Recorded Confirmed Type albuterol sulfate [Ventolin HFA] 2 puff INHALATION Q6H PRN 04/10/20 06/10/20 History atorvastatin 10 mg PO QAM 04/10/20 06/10/20 History cholecalciferol (vitamin D3) 50 mcg PO QAM 04/10/20 06/10/20 History [Vitamin D3] cyanocobalamin (vitamin B-12) 1,000 mcg PO QAM 04/10/20 06/10/20 History fluticasone propionate 2 spray INTRANASAL DAILY 04/10/20 06/10/20 History lisinopril-hydrochlorothiazide 1 tab PO QAM 04/10/20 06/10/20 History acetaminophen 1,000 mg PO Q8 PRN #90 tab 05/13/20 06/10/20 Rx aspirin 81 mg PO BID #56 tab 05/13/20 06/10/20 Rx oxycodone 5 mg PO Q6H PRN #30 tab MDD 4 05/13/20 06/10/20 Rx sennosides [Senokot] 17.2 mg PO HS PRN #28 tab 05/13/20 06/10/20 Rx celecoxib 100 mg PO BID 06/10/20 06/10/20 History Allergies Allergy/AdvReac Type Severity Reaction Status Date / Time aspirin Allergy Intermediate wheezing Verified 06/10/20 06:31 etodolac Allergy Intermediate wheezing Verified 06/10/20 06:31 animal dander Allergy Unknown wheezing, Verified 06/10/20 06:31 cough, sneezing flurbiprofen Allergy Unknown wheezing, Verified 06/10/20 06:31 cough, sneezing pollen extracts Allergy Unknown wheezing, Verified 06/10/20 06:31 cough, sneezing ibuprofen AdvReac Intermediate Unknown Verified 06/10/20 06:31 Past Med/Surg History Medical History Asthma well controlled DJD (degenerative joint disease) Hyperlipidemia Hypertension Left bundle branch block dating back to at least 06/2012 per [facility] records Obesity Osteoarthritis Urge incontinence Surgical History Basal cell carcinoma of scalp> removed History of carpal tunnel release left History of colonoscopy History of decompression of ulnar nerve right History of tooth extraction History of total hip arthroplasty left History of total shoulder replacement bilat Status post trigger finger release left hand Social History Smoking Status: Never smoker Second Hand Exposure: No; Hx Alcohol Use: Yes Alcohol type: wine Hx Substance Use: No Preferred Language: Citizen Of [place] Communication Ability: Effective Cold Patcher Required: No Beliefs That Will Affect Care: None Current Living Situation: Family Feels Safe at Home: Yes Assistive Devices: Glasses and Walker Review of Systems A total of 10 systems reviewed and were otherwise negative Physical Exam Vital Signs Vital Signs - 24 hr 06/10/20 05:45 06/10/20 07:01 Temperature 36.9 C Temperature Source Oral Pulse Rate 70 Pulse Rate [Left Finger] 68 Pulse Rhythm Regular Pulse Strength Normal Respiratory Rate 20 18 Respiratory Effort / Characteristics Non-Labored Spontaneous Respiratory Depth Normal Blood Pressure 179/94 H Blood Pressure [Left Arm] 152/108 H Blood Pressure Mean 122 Blood Pressure Mean [Left Arm] 122 Blood Pressure Position Sitting Pulse Oximetry 98 98 Oxygen Delivery Method Room Air Room Air Sepsis Recent Fever Within 48 Hours No Sepsis New/Unexplained Change in Mental Status No Sepsis Action Taken by Nursing No Action Required VITALS: Vitals are noted on the nurse's note and reviewed by myself. Vital signs stable. GENERAL: Well-developed, well-nourished, white female who is mildly uncomfortable. NECK: Supple without nuchal rigidity. No lymphadenopathy. No thyromegaly. Cervical spine is nontender. HEART: Regular rate and rhythm without murmurs gallops or rubs. LUNGS: Clear to auscultation bilaterally without wheezes, rales or rhonchi. No retractions or accessory muscle use. MUSCULOSKELETAL: No muscle atrophy, erythema, or edema noted. Tenderness noted at the right hip. Right leg is not shortened or rotated. Range of motion is significantly limited as this causes significant reported discomfort by the patient. NEURO: Patient was alert and oriented to person place and time. CN II through XII grossly intact. SKIN: The skin was without rashes, erythema, edema, or bruising. Capillary refill less than 2 seconds. Course Administered Medications Acetaminophen (Acetaminophen 500 Mg Tab) 1,000 mg PO Q8 [facility] Stop: 07/10/20 21:59 Last Admin: 06/10/20 22:16 Dose: 1,000 mg Documented by: [id number] Atorvastatin Calcium (Atorvastatin 10 Mg Tab) 10 mg PO QAM [facility] Stop: 07/10/20 08:59 Last Admin: 06/10/20 10:08 Dose: 10 mg Documented by: [id number] Docusate Sodium (Docusate Sodium 100 Mg Cap) 100 mg PO BID [facility] Stop: 07/10/20 08:59 Last Admin: 06/10/20 20:21 Dose: 100 mg Documented by: [id number] Admin: 06/10/20 10:08 Dose: Not Given Documented by: [id number] Lisinopril/HCTZ (Lisinopril/Hctz 10/12.5mg Tab) 1 tab PO QAM [facility] Stop: 07/10/20 08:59 Last Admin: 06/10/20 10:10 Dose: 1 tab Documented by: [id number] Sodium Chloride (Nss 1000ml) 1,000 mls @ 100 mls/hr IV .Q10H [facility] Stop: 06/11/20 06:00 Last Admin: 06/10/20 20:19 Dose: 100 mls/hr Documented by: [id number] Cefazolin Sodium (Ancef 2000mg) 2,000 mg in 15 mls @ 3.75 mls/min IV Q8H [facility]; Protocol Stop: 06/11/20 07:33 Last Admin: 06/10/20 23:57 Dose: 3.75 mls/min Documented by: [id number] Morphine Sulfate (Morphine Sulfate 4 Mg/Ml 1 Ml Carp\Vial) 4 mg IV Q1H PRN PRN Reason: Pain Stop: 06/24/20 06:17 Last Admin: 06/10/20 11:59 Dose: 4 mg Documented by: [id number] Admin: 06/10/20 09:28 Dose: 4 mg Documented by: [id number] Admin: 06/10/20 06:37 Dose: 4 mg Documented by: [id number] Oxycodone HCl (Oxycodone Hcl Ir 5 Mg Tab (Immediate Release)) 5 - 10 mg PO Q4H PRN PRN Reason: Pain Stop: 06/24/20 08:38 Last Admin: 06/10/20 20:19 Dose: 10 mg Documented by: [id number] Sennosides (Senna 8.6 Mg Tab) 17.2 mg PO HS [facility] Stop: 07/10/20 20:59 Last Admin: 06/10/20 20:27 Dose: Not Given Documented by: [id number] Discontinued Medications Bacitracin (Bacitracin Inj 50,000 Unit Vial) Confirm Administered Dose 50,000 units .ROUTE .STK-MED ONE Stop: 06/10/20 15:10 Last Admin: 06/10/20 16:36 Dose: 50,000 units Documented by: [id number] Sodium Chloride (Nss) 500 mls @ 125 mls/hr IV .Q4H [facility] Stop: 07/10/20 06:29 Last Admin: 06/10/20 20:13 Dose: Not Given Documented by: [id number] Infusion: 06/10/20 20:13 Dose: 0 mls/hr Documented by: [id number] Admin: 06/10/20 14:38 Dose: Not Given Documented by: [id number] Infusion: 06/10/20 14:37 Dose: 0 mls/hr Documented by: [id number] Admin: 06/10/20 11:46 Dose: 125 mls/hr Documented by: [id number] Infusion: 06/10/20 10:39 Dose: 0 mls/hr Documented by: [id number] Admin: 06/10/20 06:38 Dose: 125 mls/hr Documented by: [id number] Ropivacaine 150 mg/Bupivacaine HCl 30 ml/Epinephrine HCl 0.15 mg/Ketorolac Tromethamine 30 mg/Dexamethasone 4 mg/ Ketamine HCl 10 mg/ Clonidine HCl 100 mcg/ Sodium Chloride 93.35 mls @ 0 mls/hr INFIL PREOP [facility]; Protocol Stop: 06/15/20 05:59 Last Admin: 06/10/20 17:53 Dose: 93.35 mls/hr Documented by: [id number] Vancomycin HCl (Vancomycin Hcl) 1,000 mg in 270 mls @ 125 mls/hr IV PREOP [facility]; Protocol Stop: 06/11/20 05:59 Last Infusion: 06/10/20 20:13 Dose: 0 mls/hr Documented by: [id number] Admin: 06/10/20 14:57 Dose: 125 mls/hr Documented by: [id number] Cefazolin Sodium (Ancef 2000mg) 2,000 mg in 15 mls @ 3.75 mls/min IV PREOP [facility]; Protocol Stop: 06/11/20 05:59 Last Admin: 06/10/20 15:28 Dose: 3.75 mls/min Documented by: [id number] Meperidine HCl (Meperidine Hcl 25 Mg/Ml Carp/Vial) 12.5 mg IV NOW STA Stop: 06/10/20 19:16 Last Admin: 06/10/20 19:18 Dose: 12.5 mg Documented by: [id number] Meperidine HCl (Meperidine Hcl 25 Mg/Ml Carp/Vial) Confirm Administered Dose 25 mg .ROUTE .STK-MED ONE Stop: 06/10/20 19:18 Last Admin: 06/10/20 20:13 Dose: Not Given Documented by: [id number] Miscellaneous (Ortho Joint Anesthetic ) Confirm Administered Dose 1 ea .ROUTE .STK-MED ONE Stop: 06/10/20 15:41 Last Admin: 06/10/20 17:53 Dose: Not Given Documented by: [id number] Ondansetron HCl (Ondansetron Inj 2 Mg/Ml 2 Ml Vial) 4 mg IV NOW STA Stop: 06/10/20 06:19 Last Admin: 06/10/20 06:37 Dose: 4 mg Documented by: [id number] Medical Decision Making Differential Diagnosis Differential diagnosis includes, but is not limited to: Sprain, strain, fracture, dislocation, subluxation, contusion, and others Laboratory Data Result diagrams: 06/10/20 19:14 09/22/20 06:28 Lab Results 06/10/20 06/10/20 06/10/20 Range/Units 06:28 06:28 07:06 WBC 7.91 (4.8-10.8) K/uL RBC 3.02 L (4.2-5.4) M/uL Hgb 9.2 L (12.0-16.0) g/dL Hct 29.4 L (37-47) % MCV 97.4 (80-100) fL MCH 30.5 (25-34) pg MCHC 31.3 L (32-36) g/dL RDW Std Deviation 47.6 H (36.4-46.3) fL RDW Coeff of Charles 13.4 (11.5-14.5) % Plt Count 233 (130-400) K/uL MPV 8.7 (7.4-10.4) fL Immature Gran % (Auto) 0.0 % Neut % (Auto) 85.1 % Lymph % (Auto) 9.4 % [place] % (Auto) 3.9 % Eos % (Auto) 1.5 % Baso % (Auto) 0.1 % Neut # (Auto) 6.73 H (1.4-6.5) K/uL Lymph # (Auto) 0.74 L (1.2-3.4) K/uL [place] # (Auto) 0.31 (0.11-0.59) K/uL Eos # (Auto) 0.12 (0-0.5) K/uL Baso # (Auto) 0.01 (0-0.2) K/uL Immature Gran # (Auto) 0.00 (0.00-0.02) K/uL PT 11.4 (9.0-12.0) Seconds INR 1.1 (0.9-1.1) APTT 24.5 (21.0-31.0) Seconds PTT Ratio 0.9 Sodium 144 (136-145) mmol/L Potassium 4.2 (3.5-5.1) mmol/L Chloride 112 H (98-107) mmol/L Carbon Dioxide 26 (21-32) mmol/L Anion Gap 6.0 (3-11) BUN 24 H (7-18) mg/dl Creatinine 0.97 (0.6-1.2) mg/dl Est Cr Clr Drug Dosing 58.0 ml/min Est GFR ( Amer) 67.2 Est GFR (Non-Af Amer) 57.9 BUN/Creatinine Ratio 25.1 H (10-20) Glucose 88 (70-99) mg/dl Calcium 9.4 (8.5-10.1) mg/dl Total Bilirubin 0.8 (0.2-1) mg/dl AST 18 (15-37) U/L ALT 16 (12-78) U/L Alkaline Phosphatase 119 H (45-117) U/L Total Protein 6.5 (6.4-8.2) gm/dl Albumin 3.2 L (3.4-5.0) gm/dl Globulin 3.3 (2.5-4.0) gm/dl Albumin/Globulin Ratio 1.0 (0.9-2) Blood Type Antibody Screen Crossmatch 06/10/20 Range/Units 07:07 WBC (4.8-10.8) K/uL RBC (4.2-5.4) M/uL Hgb (12.0-16.0) g/dL Hct (37-47) % MCV (80-100) fL MCH (25-34) pg MCHC (32-36) g/dL RDW Std Deviation (36.4-46.3) fL RDW Coeff of Charles (11.5-14.5) % Plt Count (130-400) K/uL MPV (7.4-10.4) fL Immature Gran % (Auto) % Neut % (Auto) % Lymph % (Auto) % [place] % (Auto) % Eos % (Auto) % Baso % (Auto) % Neut # (Auto) (1.4-6.5) K/uL Lymph # (Auto) (1.2-3.4) K/uL [place] # (Auto) (0.11-0.59) K/uL Eos # (Auto) (0-0.5) K/uL Baso # (Auto) (0-0.2) K/uL Immature Gran # (Auto) (0.00-0.02) K/uL PT (9.0-12.0) Seconds INR (0.9-1.1) APTT (21.0-31.0) Seconds PTT Ratio Sodium (136-145) mmol/L Potassium (3.5-5.1) mmol/L Chloride (98-107) mmol/L Carbon Dioxide (21-32) mmol/L Anion Gap (3-11) BUN (7-18) mg/dl Creatinine (0.6-1.2) mg/dl Est Cr Clr Drug Dosing ml/min Est GFR ( Amer) Est GFR (Non-Af Amer) BUN/Creatinine Ratio (10-20) Glucose (70-99) mg/dl Calcium (8.5-10.1) mg/dl Total Bilirubin (0.2-1) mg/dl AST (15-37) U/L ALT (12-78) U/L Alkaline Phosphatase (45-117) U/L Total Protein (6.4-8.2) gm/dl Albumin (3.4-5.0) gm/dl Globulin (2.5-4.0) gm/dl Albumin/Globulin Ratio (0.9-2) Blood Type O Positive Antibody Screen NEGATIVE Crossmatch See Detail Imaging Data Radiologist's Impression: XR hip RT 2V w pelvis HISTORY: 75 years-old Female Hip pain. Had replacement about 1 month ago acute bilateral hip and pelvic pain COMPARISON: Pelvis and right hip radiographs 05/13/2020 TECHNIQUE: AP view of the pelvis with 2 views of the right hip FINDINGS: Bilateral hip total joint arthroplasties. There is an acute periprosthetic fracture involving the medial cortex of the subtrochanteric proximal diaphyseal right femur with separation of the fracture fragments measuring up to 5 mm. The hardware within the left hip appears normal. Demineralized appearance of the bones. Multilevel degenerative changes of the lumbar spine. 5.2 cm calcification within the left hemipelvis is suggestive of a calcified uterine fibroid. IMPRESSION: Bilateral hip total joint arthroplasties. There is an acute periprosthetic fracture involving the medial cortex of the subtrochanteric proximal diaphyseal right femur. ECG Data Attestation: I personally reviewed and interpreted this ECG as follows: Additional Comments: Normal sinus rhythm @70bpm Left axis deviation Left bundle branch block When compared with ECG of 14-APR-2020 14:54, QRS axis Shifted left MDM Narrative Physical exam and history were performed. Nursing notes, EMR, and Medication List were personally reviewed. Patient appears to have right hip pain bring her to the ER by EMS. She has had pain medication in the ambulance and does not appear in significant distress on my exam. IV access was established and labs were obtained. The patient was given additional pain medication and made n.p.o. X-ray was obtained and reviewed by myself and radiology. The patient appears to have a periprosthetic fracture of the right hip. Review of previous x-rays over the past 2 weeks indicates this is an acute fracture. The patient blood work is as above and was reviewed. She does not have a significantly elevated white blood cell count. She is mildly anemic at 9.2, however she was 8.8 about 1 month ago with her surgery. Her remaining labs are nondiagnostic. The case was discussed with the on-call orthopedist, Dr. Rock, who in turn did discuss the case with the patient surgeon, Dr Cancino. Dr Cancino did call to the ER, and I spoke directly with him. Evidently today is a surgical day for Dr Cancino and he will admit the patient for repair. He did request that we contact the hospital service and consult them for preop testing, which was performed. I did speak with Dr. Weathers regarding this, and he is aware. Overall the patient remained in stable condition and was pleased with plan of care. Please see the surgical team and hospitalist team dictations for further patient course, plan, and disposition. The chart was completed utilizing DocSend Speech Voice Recognition Software. Grammatical errors, random word insertions, pronoun errors, and incomplete sentences are an occasional consequence of this system due to software limitations, ambient noise, and hardware issues. Any formal questions or concerns about the content, text, or information contained within the body of this dictation should be directly addressed to the provider for clarification. . Impression & Plan Periprosthetic hip fracture Discharge Plan Visit Data Chief Complaint: Hip Pain Stated Complaint: HIP PAIN ED Provider: [facility] ED Midlevel Provider: Dontrell Pérez Discharge Problem: Periprosthetic hip fracture Patient Disposition: Admitted As Inpatient Condition: Good Discharge Instructions Interventions: ED Discharge Assessment Last Done: 06/10/20 07:55 Discharge Problem: Periprosthetic hip fracture Qualifiers: Encounter type: initial encounter Qualified Code(s): M97.8XXA - Periprosthetic fracture around other internal prosthetic joint, initial encounter
[2020-06-11] MEDS ORDERED: VANCOMYCIN HCL 1,500 MG in SODIUM CHLORIDE 0.9% 500 ML IV SCH (03:00)
[2020-06-11] MEDS: OXYCODONE HCL IR 5 MG TAB (IMMEDIATE RELEASE) PO PRN ×2 (04:14→08:46)
[2020-06-11] MEDS ORDERED: VANCOMYCIN HCL 1,000 MG/270 ML BAG IV SCH (06:00)
[2020-06-11] MEDS: SODIUM CHLORIDE 0.9% 1000ML 1,000 ML IV SCH (06:05)
[2020-06-11] MEDS: ACETAMINOPHEN 500 MG TAB PO SCH ×3 (06:05→21:53)
[2020-06-11 06:29] LABS: Hematocrit (blood only) 22.9 % (37-47); Hemoglobin 7.4 g/dL (12.0-16.0); Immature Granulocytes # (auto) 0.02 K/uL (0.00-0.02); Immature Granulocytes % (auto) 0.2 %; Lymphocytes # (auto) 0.49 K/uL (1.2-3.4); Lymphocytes % (auto) 5.6 %; Mean Corpuscular Hemoglobin 30.8 pg (25-34); Mean Corpuscular Hgb Conc 32.3 g/dL (32-36); Mean Corpuscular Volume 95.4 fL (80-100); Mean Platelet Volume 8.7 fL (7.4-10.4); Monocytes % (auto) 5.7 %; Neutrophils # (auto) 7.71 K/uL (1.4-6.5); Neutrophils % (auto) 88.5 %; Platelet Count 215 K/uL (130-400); RDW Coefficient of Variation 14.7 % (11.5-14.5); White Blood Count 8.72 K/uL (4.8-10.8)
[2020-06-11 06:56] LABS: BUN Creatinine Ratio 19.4 (10-20); Calcium 8.9 mg/dl (8.5-10.1); Creatinine Clr Calc Pharmacy 46.1 ml/min; Est GFR (African American) 50.9; Est GFR (Non-African American) 43.9; Potassium 4.6 mmol/L (3.5-5.1)
--- NOTE | 2020-06-11 07:33 | Hospitalist Progress Note ---
Date of Service June 11, 2020 Assessment & Plan (1) Periprosthetic hip fracture: Patient has periprostatic hip fractures s/p surgery on 06/10/2020. Surgical DVT prevention has been decided to be Lovenox therapy acute blood loss anemia postoperatively status post 2 units packed red cells transfusion (2) Hypertension: Patient's had lower blood pressure postoperatively will hold antihypertensives (3) Asthma: This patient asthma has been stable we will offer her albuterol inhaler if need be (4) DVT prophylaxis: Previously DVT prophylaxis is been aspirin twice daily surgical preference will still dictate choice of DVT prevention in the perioperative period (5) Acute blood loss anemia: will likely need transfusion Admission and Anticipated Discharge Date Admission Date: June 10, 2020 Subjective Patient was seen postoperatively she was slightly tearful. her pain was in good control she is significantly anemic requiring additional transfusion of blood on 06/11/2020. She likely is not anticipating rehab placement Review of Systems Review of Systems: Hip pain is much more tolerable patient was able to get some sleep overnight no headache, blurry or double vision no speech or swallowing issues no chest pain, pressure or palpitations no shortness of breath, cough or wheezes no abdominal pain, nausea or vomiting, diarrhea or constipation no dysuria, hematuria or frequency Right hip discomfort at operative site pain is proportional to recent surgery no back pain, CVA tenderness or radicular pain no bruising, bleeding or rashes no focal signs of weakness or numbness or altered sensation no complaints or anxiety or depression. Physical Exam Physical Exam: The patient appeared well nourished and normally developed. Vital signs as documented. Head exam is normocephalic atraumatic no scleral icterus Neck is without JVD, thyromegaly, or carotid bruits. Lungs are clear to auscultation, no focal loss of breath sounds Cardiac exam, Rhythm is regular.. No murmurs, rubs or gallops. Abdominal exam reveals normal bowel sounds, soft non tender, no masses Extremities are with trace bilateral pretibial edema patient is currently tolerating sitting in a chair with only minimal discomfort Neurologic exam is alert and oriented, no focal loss of strength or sensation her right leg is limited due to pain Skin is without bruises or rashes Psychologically is without concerns for anxiety or depression. Results & Data Results & Data ([facility]) Vital Signs (Past 12 Hours) Vital Signs Temp Pulse Pulse Resp BP Pulse Ox 06/11/20 07:12 97.5 F L 78 17 103/61 97 06/11/20 03:40 97.9 F 78 14 107/61 96 06/10/20 23:27 98.2 F 82 15 93/60 L 94 06/10/20 22:00 97.2 F L 78 16 102/64 91 06/10/20 21:00 97.3 F L 70 16 96/58 L 90 06/10/20 20:30 87 18 146/73 H 96 06/10/20 20:00 98.1 F 77 18 125/72 95 06/10/20 19:45 73 18 114/50 L 96 PG Care Time/CCT Total # of Minutes Spent Total Time Spent with Patient: Total time spent is greater than 50% in coordination of care (as documented) at patient's floor/unit and/or counseling patient: Coding Level of Care Code 56011 Subseq Hosp Care Lvl 2 Diagnoses Periprosthetic hip fracture M97.8XXA; Z96.649 Encounter type: initial encounter Hypertension I10 Asthma J45.909 DVT prophylaxis Z29.9 Acute blood loss anemia D62 (1) Periprosthetic hip fracture Encounter type: initial encounter Qualified Code(s): M97.8XXA - Periprosthetic fracture around other internal prosthetic joint, initial encounter; Z96.649 - Presence of unspecified artificial hip joint
[2020-06-11] MEDS: CEFAZOLIN 2000MG 2,000 MG/15 ML SYR IV SCH (08:18)
[2020-06-11] MEDS: DOCUSATE SODIUM 100 MG CAP PO SCH ×2 (08:18→21:52)
[2020-06-11] MEDS: ATORVASTATIN 10 MG TAB PO SCH (08:19)
[2020-06-11] MEDS: MULTIVITAMIN TAB PO SCH (08:20)
[2020-06-11] MEDS: LISINOPRIL/HCTZ 10/12.5MG TAB PO SCH (08:20)
[2020-06-11] MEDS: ENOXAPARIN INJ 40 MG/0.4 ML SYR SQ SCH (08:30)
--- NOTE | 2020-06-11 10:05 | Orthopedic Progress Note ---
Date of Service June 11, 2020 Assessment & Plan (1) Periprosthetic hip fracture: Status post revision right total hip arthroplasty, ORIF proximal femur POD#1 -Ancef/Vanco x24 -DVT prophylaxis: SCDs, teds, Lovenox daily -toe touch to Partial weightbearing 25% right lower extremity -PT/OT -Postoperative x-ray demonstrates a well aligned, well fixed total hip prosthesis and cables, anatomic alignment of medial calcar fracture. -A.m. labs - as above, hgb 7.4, Cr 1.22. Patient VSS, will continue to monitor Hgb, defer transfusion to med team, encouraged PO intake of fluids, will avoid nephrotoxic medications. -DC planning Admission and Anticipated Discharge Date Admission Date: June 10, 2020 Subjective Post Operative Progress Note Patient seen sitting up in bed, comfortable, denies complaints, pain well controlled, no acute issues. Denies F/C/N/V/SOB/CP. Review of Systems Review of Systems: All systems reviewed & are unremarkable except as noted in HPI & below Constitutional: as per Subjective / HPI Physical Exam Physical Exam: RLE NVSI +EHL/FHL/TA/GS SILT grossly, +2 DP pulse, compartments soft NT, dressing cdi. Drain intact. Constitutional: WD/WN, vitals as above Results & Data ([facility]) Vital Signs (Past 12 Hours) Vital Signs Temp Pulse Resp BP Pulse Ox 06/11/20 07:12 36.4 C L 78 17 103/61 97 06/11/20 03:40 36.6 C 78 14 107/61 96 06/10/20 23:27 36.8 C 82 15 93/60 L 94 Laboratory Results 06/11/20 06/11/20 06/10/20 Range/Units 05:52 05:52 19:14 WBC 8.72 (4.8-10.8) K/uL RBC 2.40 L (4.2-5.4) M/uL Hgb 7.4 L 8.8 L (12.0-16.0) g/dL POC Hgb (12.0-16.0) g/dl Hct 22.9 L 27.9 L (37-47) % POC Hct (37-47) % MCV 95.4 (80-100) fL MCH 30.8 (25-34) pg MCHC 32.3 (32-36) g/dL RDW Std Deviation 51.0 H (36.4-46.3) fL RDW Coeff of Charles 14.7 H (11.5-14.5) % Plt Count 215 (130-400) K/uL MPV 8.7 (7.4-10.4) fL Immature Gran % (Auto) 0.2 % Neut % (Auto) 88.5 % Lymph % (Auto) 5.6 % Alexander % (Auto) 5.7 % Eos % (Auto) 0.0 % Baso % (Auto) 0.0 % Neut # (Auto) 7.71 H (1.4-6.5) K/uL Lymph # (Auto) 0.49 L (1.2-3.4) K/uL Alexander # (Auto) 0.50 (0.11-0.59) K/uL Eos # (Auto) 0.00 (0-0.5) K/uL Baso # (Auto) 0.00 (0-0.2) K/uL Immature Gran # (Auto) 0.02 (0.00-0.02) K/uL POC Sodium (135-144) mmol/L Sodium 142 (136-145) mmol/L POC Potassium (3.3-5.0) mmol/L Potassium 4.6 (3.5-5.1) mmol/L POC Chloride (101-112) mmol/L Chloride 112 H (98-107) mmol/L Carbon Dioxide 23 (21-32) mmol/L POC Total CO2 (24-31) mmol/L Anion Gap 7.0 (3-11) POC Anion Gap (16-25) mmol/L POC BUN (7-18) mg/dl BUN 24 H (7-18) mg/dl Creatinine 1.22 H (0.6-1.2) mg/dl POC Creatinine (0.6-1.3) mg/dl Est Cr Clr Drug Dosing 46.1 ml/min Est GFR ( Amer) 50.9 Est GFR (Non-Af Amer) 43.9 BUN/Creatinine Ratio 19.4 (10-20) Glucose 119 H (70-99) mg/dl POC Glucose (other) (70-99) mg/dl Calcium 8.9 (8.5-10.1) mg/dl POC Ioniz Calcium Renan (1.12-1.32) mmol/l COVID-19 Eval Order SARS-CoV-2, RNA, NAAT (NEGATIVE) Blood Type Antibody Screen Crossmatch 06/10/20 06/10/20 06/10/20 Range/Units 17:45 10:18 10:18 WBC (4.8-10.8) K/uL RBC (4.2-5.4) M/uL Hgb (12.0-16.0) g/dL POC Hgb 7.5 L (12.0-16.0) g/dl Hct (37-47) % POC Hct 22 L (37-47) % MCV (80-100) fL MCH (25-34) pg MCHC (32-36) g/dL RDW Std Deviation (36.4-46.3) fL RDW Coeff of Charles (11.5-14.5) % Plt Count (130-400) K/uL MPV (7.4-10.4) fL Immature Gran % (Auto) % Neut % (Auto) % Lymph % (Auto) % Alexander % (Auto) % Eos % (Auto) % Baso % (Auto) % Neut # (Auto) (1.4-6.5) K/uL Lymph # (Auto) (1.2-3.4) K/uL Alexander # (Auto) (0.11-0.59) K/uL Eos # (Auto) (0-0.5) K/uL Baso # (Auto) (0-0.2) K/uL Immature Gran # (Auto) (0.00-0.02) K/uL POC Sodium 142 (135-144) mmol/L Sodium (136-145) mmol/L POC Potassium 4.0 (3.3-5.0) mmol/L Potassium (3.5-5.1) mmol/L POC Chloride 106 (101-112) mmol/L Chloride (98-107) mmol/L Carbon Dioxide (21-32) mmol/L POC Total CO2 25 (24-31) mmol/L Anion Gap (3-11) POC Anion Gap 16.0 (16-25) mmol/L POC BUN 17 (7-18) mg/dl BUN (7-18) mg/dl Creatinine (0.6-1.2) mg/dl POC Creatinine 0.9 (0.6-1.3) mg/dl Est Cr Clr Drug Dosing ml/min Est GFR ( Amer) Est GFR (Non-Af Amer) BUN/Creatinine Ratio (10-20) Glucose (70-99) mg/dl POC Glucose (other) 87 (70-99) mg/dl Calcium (8.5-10.1) mg/dl POC Ioniz Calcium Renan 1.49 H (1.12-1.32) mmol/l COVID-19 Eval Order Covid19 [facility] SARS-CoV-2, RNA, NAAT NEGATIVE (NEGATIVE) Blood Type Antibody Screen Crossmatch 06/10/20 Range/Units 07:07 WBC (4.8-10.8) K/uL RBC (4.2-5.4) M/uL Hgb (12.0-16.0) g/dL POC Hgb (12.0-16.0) g/dl Hct (37-47) % POC Hct (37-47) % MCV (80-100) fL MCH (25-34) pg MCHC (32-36) g/dL RDW Std Deviation (36.4-46.3) fL RDW Coeff of Charles (11.5-14.5) % Plt Count (130-400) K/uL MPV (7.4-10.4) fL Immature Gran % (Auto) % Neut % (Auto) % Lymph % (Auto) % Alexander % (Auto) % Eos % (Auto) % Baso % (Auto) % Neut # (Auto) (1.4-6.5) K/uL Lymph # (Auto) (1.2-3.4) K/uL Alexander # (Auto) (0.11-0.59) K/uL Eos # (Auto) (0-0.5) K/uL Baso # (Auto) (0-0.2) K/uL Immature Gran # (Auto) (0.00-0.02) K/uL POC Sodium (135-144) mmol/L Sodium (136-145) mmol/L POC Potassium (3.3-5.0) mmol/L Potassium (3.5-5.1) mmol/L POC Chloride (101-112) mmol/L Chloride (98-107) mmol/L Carbon Dioxide (21-32) mmol/L POC Total CO2 (24-31) mmol/L Anion Gap (3-11) POC Anion Gap (16-25) mmol/L POC BUN (7-18) mg/dl BUN (7-18) mg/dl Creatinine (0.6-1.2) mg/dl POC Creatinine (0.6-1.3) mg/dl Est Cr Clr Drug Dosing ml/min Est GFR ( Amer) Est GFR (Non-Af Amer) BUN/Creatinine Ratio (10-20) Glucose (70-99) mg/dl POC Glucose (other) (70-99) mg/dl Calcium (8.5-10.1) mg/dl POC Ioniz Calcium Renan (1.12-1.32) mmol/l COVID-19 Eval Order SARS-CoV-2, RNA, NAAT (NEGATIVE) Blood Type O Positive Antibody Screen NEGATIVE Crossmatch See Detail (1) Periprosthetic hip fracture Encounter type: initial encounter Qualified Code(s): M97.8XXA - Periprosthetic fracture around other internal prosthetic joint, initial encounter; Z96.649 - Presence of unspecified artificial hip joint
[2020-06-11] MEDS: MoRPHine SULFATE 4 MG/ML 1 ML CARP\\VIAL IV PRN (11:34)
[2020-06-11] MEDS ORDERED: SODIUM CHLORIDE 0.9% 250 ML IV PRN (11:46)
--- NOTE | 2020-06-11 14:02 | Electrocardiogram Report ---
Test Reason : Blood Pressure : / mmHG Vent. Rate : 070 BPM Atrial Rate : 070 BPM P-R Int : 134 ms QRS Dur : 134 ms QT Int : 414 ms P-R-T Axes : 057 -51 073 degrees QTc Int : 447 ms Normal sinus rhythm Left axis deviation Left bundle branch block Abnormal ECG When compared with ECG of 14-APR-2020 14:54, QRS axis Shifted left Confirmed by Chris Bentley ([id number]) on 06/11/2020 2:01:53 PM Referred By: REFERRED SELF Confirmed By:Chris Bentley
[2020-06-11] MEDS: SENNA 8.6 MG TAB PO SCH (21:51)
[2020-06-12] MEDS: OXYCODONE HCL IR 5 MG TAB (IMMEDIATE RELEASE) PO PRN ×3 (00:57→15:26)
[2020-06-12 06:28] LABS: Hematocrit (blood only) 21.6 % (37-47); Mean Corpuscular Hemoglobin 30.2 pg (25-34); Mean Corpuscular Hgb Conc 32.4 g/dL (32-36); Mean Corpuscular Volume 93.1 fL (80-100); Mean Platelet Volume 8.7 fL (7.4-10.4); Platelet Count 183 K/uL (130-400); RDW Coefficient of Variation 15.8 % (11.5-14.5); RDW Standard Deviation 53.5 fL (36.4-46.3); Red Blood Count 2.32 M/uL (4.2-5.4); White Blood Count 7.75 K/uL (4.8-10.8)
[2020-06-12] MEDS: ACETAMINOPHEN 500 MG TAB PO SCH ×3 (06:29→20:11)
[2020-06-12 06:52] LABS: Basophils # (auto) 0.01 K/uL (0-0.2); Basophils % (auto) 0.1 %; Eosinophils # (auto) 0.05 K/uL (0-0.5); Eosinophils % (auto) 0.6 %; Immature Granulocytes # (auto) 0.02 K/uL (0.00-0.02); Immature Granulocytes % (auto) 0.3 %; Lymphocytes # (auto) 1.19 K/uL (1.2-3.4); Lymphocytes % (auto) 15.4 %; Monocytes # (auto) 0.76 K/uL (0.11-0.59); Monocytes % (auto) 9.8 %; Neutrophils # (auto) 5.72 K/uL (1.4-6.5); Neutrophils % (auto) 73.8 %; RBC Morphology Unremarkable
[2020-06-12 06:54] LABS: Calcium 8.8 mg/dl (8.5-10.1); Creatinine Clr Calc Pharmacy 40.8 ml/min; Est GFR (African American) 43.8; Est GFR (Non-African American) 37.8; Potassium 4.4 mmol/L (3.5-5.1)
[2020-06-12] MEDS: DOCUSATE SODIUM 100 MG CAP PO SCH ×2 (08:31→20:11)
[2020-06-12] MEDS: ATORVASTATIN 10 MG TAB PO SCH (08:31)
[2020-06-12] MEDS: MULTIVITAMIN TAB PO SCH (08:31)
[2020-06-12] MEDS ORDERED: SODIUM CHLORIDE 0.9% 250 ML IV PRN ×4 (08:54→10:51)
--- NOTE | 2020-06-12 09:34 | Orthopedic Progress Note ---
Date of Service June 12, 2020 Assessment & Plan (1) Periprosthetic hip fracture: Status post revision right total hip arthroplasty, ORIF proximal femur POD#2 -Ancef/Vanco x24 -DVT prophylaxis: SCDs, teds, Lovenox daily -toe touch to Partial weightbearing 25% right lower extremity -PT/OT -Postoperative x-ray demonstrates a well aligned, well fixed total hip prosthesis and cables, anatomic alignment of medial calcar fracture. -A.m. labs - as above, hgb 7.0, Cr 1.38. Will transfuse 2 units PRBC. -Drain output - , will DC -DC planning POD#1 -Ancef/Vanco x24 -DVT prophylaxis: SCDs, teds, Lovenox daily -toe touch to Partial weightbearing 25% right lower extremity -PT/OT -Postoperative x-ray demonstrates a well aligned, well fixed total hip prosthesis and cables, anatomic alignment of medial calcar fracture. -A.m. labs - as above, hgb 7.4, Cr 1.22. Patient VSS, will continue to monitor Hgb, defer transfusion to med team, encouraged PO intake of fluids, will avoid nephrotoxic medications. -DC planning Admission and Anticipated Discharge Date Admission Date: June 10, 2020 Subjective Post Operative Progress Note Patient seen sitting up in bed, comfortable, denies complaints, pain well controlled, no acute issues. Denies F/C/N/V/SOB/CP. Review of Systems Review of Systems: All systems reviewed & are unremarkable except as noted in HPI & below Constitutional: as per Subjective / HPI Physical Exam Physical Exam: RLE NVSI +EHL/FHL/TA/GS SILT grossly, +2 DP pulse, compartments soft NT, dressing cdi. Drain intact Constitutional: WD/WN, vitals as above Results & Data ([facility]) Vital Signs (Past 12 Hours) Vital Signs Temp Pulse Resp BP BP Pulse Ox 06/12/20 08:14 36.6 C 86 17 117/67 98 06/12/20 04:05 37.1 C 81 18 98/61 L 96 06/11/20 23:12 37.6 C H 88 18 108/61 96 Laboratory Results 06/12/20 06/12/20 06/10/20 Range/Units 05:54 05:54 07:07 WBC 7.75 (4.8-10.8) K/uL RBC 2.32 L (4.2-5.4) M/uL Hgb 7.0 L (12.0-16.0) g/dL Hct 21.6 L (37-47) % MCV 93.1 (80-100) fL MCH 30.2 (25-34) pg MCHC 32.4 (32-36) g/dL RDW Std Deviation 53.5 H (36.4-46.3) fL RDW Coeff of Charles 15.8 H (11.5-14.5) % Plt Count 183 (130-400) K/uL MPV 8.7 (7.4-10.4) fL Immature Gran % (Auto) 0.3 % Neut % (Auto) 73.8 % Lymph % (Auto) 15.4 % [place] % (Auto) 9.8 % Eos % (Auto) 0.6 % Baso % (Auto) 0.1 % Neut # (Auto) 5.72 (1.4-6.5) K/uL Lymph # (Auto) 1.19 L (1.2-3.4) K/uL [place] # (Auto) 0.76 H (0.11-0.59) K/uL Eos # (Auto) 0.05 (0-0.5) K/uL Baso # (Auto) 0.01 (0-0.2) K/uL Immature Gran # (Auto) 0.02 (0.00-0.02) K/uL RBC Morphology Unremarkable Sodium 143 (136-145) mmol/L Potassium 4.4 (3.5-5.1) mmol/L Chloride 113 H (98-107) mmol/L Carbon Dioxide 25 (21-32) mmol/L Anion Gap 5.0 (3-11) BUN 35 H (7-18) mg/dl Creatinine 1.38 H (0.6-1.2) mg/dl Est Cr Clr Drug Dosing 40.8 ml/min Est GFR ( Amer) 43.8 Est GFR (Non-Af Amer) 37.8 BUN/Creatinine Ratio 25.0 H (10-20) Glucose 101 H (70-99) mg/dl Calcium 8.8 (8.5-10.1) mg/dl Blood Type O Positive Antibody Screen NEGATIVE Crossmatch See Detail (1) Periprosthetic hip fracture Encounter type: initial encounter Qualified Code(s): M97.8XXA - Periprosthetic fracture around other internal prosthetic joint, initial encounter; Z96.649 - Presence of unspecified artificial hip joint
[2020-06-12] MEDS: FERROUS GLUCONATE 324 MG TAB PO SCH (11:33)
[2020-06-12] MEDS: ENOXAPARIN INJ 40 MG/0.4 ML SYR SQ SCH (11:33)
--- NOTE | 2020-06-12 14:33 | Hospitalist Progress Note ---
Date of Service June 12, 2020 Assessment & Plan (1) Periprosthetic hip fracture: Patient has periprostatic hip fractures s/p surgery on 06/10/2020. Surgical DVT prevention has been decided to be Lovenox therapy acute blood loss anemia postoperatively status post 4 units packed red cells transfusion (2) Hypertension: Patient's had lower blood pressure postoperatively now improved will restart bp meds (3) Asthma: This patient asthma has been stable we will offer her albuterol inhaler if need be (4) DVT prophylaxis: Previously DVT prophylaxis is been aspirin twice daily surgical preference is now lovenox (5) Acute blood loss anemia: will likely need transfusion (6) Constipation: will escalate cathartic agents Admission and Anticipated Discharge Date Admission Date: June 10, 2020 Review of Systems Review of Systems: Hip pain is improving no headache, blurry or double vision no speech or swallowing issues no chest pain, pressure or palpitations no shortness of breath, cough or wheezes no abdominal pain, nausea or vomiting, diarrhea or constipation no dysuria, hematuria or frequency Right hip discomfort at operative site pain is proportional to recent surgery no back pain, CVA tenderness or radicular pain no bruising, bleeding or rashes no focal signs of weakness or numbness or altered sensation no complaints or anxiety or depression. Physical Exam Physical Exam: The patient appeared well nourished and normally developed. Vital signs as documented. Head exam is normocephalic atraumatic no scleral icterus Neck is without JVD, thyromegaly, or carotid bruits. Lungs are clear to auscultation, no focal loss of breath sounds Cardiac exam, Rhythm is regular.. No murmurs, rubs or gallops. Abdominal exam reveals normal bowel sounds, soft non tender, no masses Extremities are with trace bilateral pretibial edema patient is currently tolerating sitting in a chair with only minimal discomfort Neurologic exam is alert and oriented, no focal loss of strength or sensation her right leg is limited due to pain Skin is without bruises or rashes Psychologically is without concerns for anxiety or depression. Results & Data Results & Data ([facility]) Vital Signs (Past 12 Hours) Vital Signs Temp Pulse Pulse Resp BP BP BP 06/12/20 14:00 98.1 F 88 20 146/66 H 06/12/20 13:45 97.9 F 88 20 122/71 06/12/20 13:25 97.5 F L 88 18 104/62 06/12/20 12:24 98.1 F 88 20 110/62 06/12/20 12:00 98.2 F 77 20 115/50 L 06/12/20 11:30 97.9 F 77 20 114/67 06/12/20 11:00 98.1 F 72 20 99/51 L 06/12/20 10:45 98.2 F 80 20 109/49 L 06/12/20 10:42 06/12/20 10:24 97.5 F L 95 H 18 90/50 L 06/12/20 08:14 97.9 F 86 17 117/67 06/12/20 04:05 98.8 F 81 18 98/61 L Pulse Ox 06/12/20 14:00 06/12/20 13:45 97 06/12/20 13:25 06/12/20 12:24 97 06/12/20 12:00 93 06/12/20 11:30 93 06/12/20 11:00 96 06/12/20 10:45 95 06/12/20 10:42 97 06/12/20 10:24 06/12/20 08:14 98 06/12/20 04:05 96 PG Care Time/CCT Total # of Minutes Spent Total Time Spent with Patient: Total time spent is greater than 50% in coordination of care (as documented) at patient's floor/unit and/or counseling patient: Coding Level of Care Code 14017 Subseq Hosp Care Lvl 2 Diagnoses Periprosthetic hip fracture M97.8XXA; Z96.649 Encounter type: initial encounter Hypertension I10 Asthma J45.909 DVT prophylaxis Z29.9 Acute blood loss anemia D62 Constipation K59.00 (1) Periprosthetic hip fracture Encounter type: initial encounter Qualified Code(s): M97.8XXA - Periprosthetic fracture around other internal prosthetic joint, initial encounter; Z96.649 - Presence of unspecified artificial hip joint
[2020-06-12] MEDS ORDERED: POLYETHYLENE (MIRALAX) 17 GM PACK PO ONE (14:34)
[2020-06-12] MEDS ORDERED: HydrALAZINE HCL 20 MG/ML VIAL IV PRN (14:35)
[2020-06-12] MEDS: SENNA 8.6 MG TAB PO SCH (20:10)
[2020-06-13] MEDS: ACETAMINOPHEN 500 MG TAB PO SCH ×3 (05:19→21:13)
[2020-06-13 06:59] LABS: Eosinophils # (auto) 0.15 K/uL (0-0.5); Eosinophils % (auto) 2.2 %; Hematocrit (blood only) 26.9 % (37-47); Hemoglobin 8.9 g/dL (12.0-16.0); Immature Granulocytes # (auto) 0.03 K/uL (0.00-0.02); Immature Granulocytes % (auto) 0.4 %; Lymphocytes # (auto) 0.84 K/uL (1.2-3.4); Lymphocytes % (auto) 12.2 %; Mean Corpuscular Hemoglobin 30.6 pg (25-34); Mean Corpuscular Hgb Conc 33.1 g/dL (32-36); Mean Corpuscular Volume 92.4 fL (80-100); Mean Platelet Volume 8.7 fL (7.4-10.4); Monocytes # (auto) 0.67 K/uL (0.11-0.59); Monocytes % (auto) 9.7 %; Neutrophils % (auto) 75.5 %; Platelet Count 165 K/uL (130-400); RDW Coefficient of Variation 15.2 % (11.5-14.5); RDW Standard Deviation 51.5 fL (36.4-46.3); Red Blood Count 2.91 M/uL (4.2-5.4); White Blood Count 6.89 K/uL (4.8-10.8)
[2020-06-13 07:29] LABS: BUN Creatinine Ratio 26.5 (10-20); Calcium 9.5 mg/dl (8.5-10.1); Creatinine Clr Calc Pharmacy 53.1 ml/min; Est GFR (African American) 60.3; Potassium 4.6 mmol/L (3.5-5.1)
[2020-06-13] MEDS: DOCUSATE SODIUM 100 MG CAP PO SCH ×2 (08:10→20:35)
[2020-06-13] MEDS: FERROUS GLUCONATE 324 MG TAB PO SCH (08:11)
[2020-06-13] MEDS: ATORVASTATIN 10 MG TAB PO SCH (08:11)
[2020-06-13] MEDS: SENNA 8.6 MG TAB PO SCH ×2 (08:11→20:35)
[2020-06-13] MEDS: MULTIVITAMIN TAB PO SCH (08:11)
[2020-06-13] MEDS: ENOXAPARIN INJ 40 MG/0.4 ML SYR SQ SCH (08:12)
[2020-06-13] MEDS: LISINOPRIL/HCTZ 10/12.5MG TAB PO SCH (08:15)
--- NOTE | 2020-06-13 09:48 | Orthopedic Progress Note ---
Date of Service June 13, 2020 Assessment & Plan (1) Periprosthetic hip fracture: Status post revision right total hip arthroplasty, ORIF proximal femur POD#3 -Ancef/Vanco x24 -DVT prophylaxis: SCDs, teds, Lovenox daily -toe touch to Partial weightbearing 25% right lower extremity -PT/OT -Postoperative x-ray demonstrates a well aligned, well fixed total hip prosthesis and cables, anatomic alignment of medial calcar fracture. -A.m. labs - as above, hgb 9.8 received 2 units on 06/12/20, Cr 1.06, KISHA improved -DC planning - rehab vs home with POD#2 -Ancef/Vanco x24 -DVT prophylaxis: SCDs, teds, Lovenox daily -toe touch to Partial weightbearing 25% right lower extremity -PT/OT -Postoperative x-ray demonstrates a well aligned, well fixed total hip prosthesis and cables, anatomic alignment of medial calcar fracture. -A.m. labs - as above, hgb 7.0, Cr 1.38. Will transfuse 2 units PRBC. -Drain output - , will DC -DC planning POD#1 -Ancef/Vanco x24 -DVT prophylaxis: SCDs, teds, Lovenox daily -toe touch to Partial weightbearing 25% right lower extremity -PT/OT -Postoperative x-ray demonstrates a well aligned, well fixed total hip prosthesis and cables, anatomic alignment of medial calcar fracture. -A.m. labs - as above, hgb 7.4, Cr 1.22. Patient VSS, will continue to monitor Hgb, defer transfusion to med team, encouraged PO intake of fluids, will avoid nephrotoxic medications. -DC planning Admission and Anticipated Discharge Date Admission Date: June 10, 2020 Subjective Post Operative Progress Note Patient seen sitting up in bed, comfortable, denies complaints, pain well controlled, no acute issues. Denies F/C/N/V/SOB/CP. Review of Systems Review of Systems: All systems reviewed & are unremarkable except as noted in HPI & below Constitutional: as per Subjective / HPI Physical Exam Physical Exam: RLE NVSI +EHL/FHL/TA/GS SILT grossly, +2 DP pulse, compartments soft NT, dressing cdi. Constitutional: WD/WN, vitals as above Results & Data ([facility]) Vital Signs (Past 12 Hours) Vital Signs Temp Pulse Resp BP Pulse Ox 06/13/20 09:35 86 133/74 06/13/20 07:59 36.7 C 86 18 161/71 H 96 06/12/20 23:24 36.9 C 89 16 108/63 96 (1) Periprosthetic hip fracture Encounter type: initial encounter Qualified Code(s): M97.8XXA - Periprosthetic fracture around other internal prosthetic joint, initial encounter; Z96.649 - Presence of unspecified artificial hip joint
[2020-06-13] MEDS: OXYCODONE HCL IR 5 MG TAB (IMMEDIATE RELEASE) PO PRN ×2 (10:56→21:12)
--- NOTE | 2020-06-13 14:26 | Hospitalist Progress Note ---
Date of Service June 13, 2020 Assessment & Plan (1) Periprosthetic hip fracture: Patient has periprostatic hip fractures s/p surgery on 06/10/2020. Surgical DVT prevention has been decided to be Lovenox therapy acute blood loss anemia postoperatively status post 4 units packed red cells transfusion (2) Hypertension: Patient's had lower blood pressure postoperatively now improved will restart bp meds (3) Asthma: This patient asthma has been stable we will offer her albuterol inhaler if need be (4) DVT prophylaxis: Previously DVT prophylaxis is been aspirin twice daily surgical preference is now lovenox (5) Acute blood loss anemia: will likely need transfusion (6) Constipation: will escalate cathartic agents Admission and Anticipated Discharge Date Admission Date: June 10, 2020 Subjective Patient's hemoglobin is stable today she is in much better spirits anticipating discharge to rehab on 06/14 no new complaints or problems Review of Systems Review of Systems: Hip pain is improving no headache, blurry or double vision no speech or swallowing issues no chest pain, pressure or palpitations no shortness of breath, cough or wheezes no abdominal pain, nausea or vomiting, diarrhea or constipation no dysuria, hematuria or frequency Right hip discomfort improving daily no back pain, CVA tenderness or radicular pain no bruising, bleeding or rashes no focal signs of weakness or numbness or altered sensation no complaints or anxiety or depression. Physical Exam Physical Exam: The patient appeared well nourished and normally developed. Vital signs as documented. Head exam is normocephalic atraumatic no scleral icterus Neck is without JVD, thyromegaly, or carotid bruits. Lungs are clear to auscultation, no focal loss of breath sounds Cardiac exam, Rhythm is regular.. No murmurs, rubs or gallops. Abdominal exam reveals normal bowel sounds, soft non tender, no masses Extremities are with trace bilateral pretibial edema more comfortable Neurologic exam is alert and oriented, no focal loss of strength or sensation her right leg is limited due to pain Skin is without bruises or rashes Psychologically is without concerns for anxiety or depression. Results & Data Results & Data ([facility]) Vital Signs (Past 12 Hours) Vital Signs Temp Pulse Resp BP Pulse Ox 06/13/20 09:35 86 133/74 06/13/20 07:59 98.1 F 86 18 161/71 H 96 PG Care Time/CCT Total # of Minutes Spent Total Time Spent with Patient: Total time spent is greater than 50% in coordination of care (as documented) at patient's floor/unit and/or counseling patient: Coding Level of Care Code 52510 Subseq Hosp Care Lvl 2 Diagnoses Periprosthetic hip fracture M97.8XXA; Z96.649 Encounter type: initial encounter Hypertension I10 Asthma J45.909 DVT prophylaxis Z29.9 Acute blood loss anemia D62 Constipation K59.00 (1) Periprosthetic hip fracture Encounter type: initial encounter Qualified Code(s): M97.8XXA - P eriprosthetic fracture around other internal prosthetic joint, initial encounter; Z96.649 - Presence of unspecified artificial hip joint
[2020-06-14] MEDS: ACETAMINOPHEN 500 MG TAB PO SCH ×2 (05:35→13:53)
[2020-06-14 06:15] LABS: Basophils # (auto) 0.01 K/uL (0-0.2); Basophils % (auto) 0.2 %; Eosinophils # (auto) 0.18 K/uL (0-0.5); Eosinophils % (auto) 2.9 %; Hemoglobin 9.3 g/dL (12.0-16.0); Immature Granulocytes # (auto) 0.03 K/uL (0.00-0.02); Immature Granulocytes % (auto) 0.5 %; Lymphocytes # (auto) 0.95 K/uL (1.2-3.4); Lymphocytes % (auto) 15.3 %; Mean Corpuscular Hemoglobin 30.5 pg (25-34); Mean Corpuscular Hgb Conc 32.1 g/dL (32-36); Mean Corpuscular Volume 95.1 fL (80-100); Monocytes % (auto) 9.7 %; Neutrophils # (auto) 4.44 K/uL (1.4-6.5); Neutrophils % (auto) 71.4 %; Platelet Count 200 K/uL (130-400); RDW Coefficient of Variation 15.3 % (11.5-14.5); RDW Standard Deviation 51.2 fL (36.4-46.3); Red Blood Count 3.05 M/uL (4.2-5.4); White Blood Count 6.21 K/uL (4.8-10.8)
[2020-06-14 06:39] LABS: BUN Creatinine Ratio 23.7 (10-20); Calcium 9.8 mg/dl (8.5-10.1); Creatinine Clr Calc Pharmacy 66.2 ml/min; Est GFR (African American) 78.8; Potassium 4.3 mmol/L (3.5-5.1)
[2020-06-14 07:03] VITALS: PULSE 85; TEMP 98.1; O2SAT 96
--- NOTE | 2020-06-14 08:26 | Orthopedic Progress Note ---
Date of Service June 14, 2020 Assessment & Plan (1) Periprosthetic hip fracture: -DC planning - rehab vs home with HH Status post revision right total hip arthroplasty, ORIF proximal femur POD#4 -Ancef/Vanco x24 -DVT prophylaxis: SCDs, teds, Lovenox daily -toe touch to Partial weightbearing 25% right lower extremity -PT/OT -Postoperative x-ray demonstrates a well aligned, well fixed total hip prosthesis and cables, anatomic alignment of medial calcar fracture. -A.m. labs - as above, hgb 9.8 received 2 units on 06/12/20, Cr 1.06, KISHA improved Status post revision right total hip arthroplasty, ORIF proximal femur POD#3 -Ancef/Vanco x24 -DVT prophylaxis: SCDs, teds, Lovenox daily -toe touch to Partial weightbearing 25% right lower extremity -PT/OT -Postoperative x-ray demonstrates a well aligned, well fixed total hip prosthesis and cables, anatomic alignment of medial calcar fracture. -A.m. labs - as above, hgb 9.8 received 2 units on 06/12/20, Cr 1.06, KISHA improved POD#2 -Ancef/Vanco x24 -DVT prophylaxis: SCDs, teds, Lovenox daily -toe touch to Partial weightbearing 25% right lower extremity -PT/OT -Postoperative x-ray demonstrates a well aligned, well fixed total hip prosthesis and cables, anatomic alignment of medial calcar fracture. -A.m. labs - as above, hgb 7.0, Cr 1.38. Will transfuse 2 units PRBC. -Drain output - 25/175, will DC -DC planning POD#1 -Ancef/Vanco x24 -DVT prophylaxis: SCDs, teds, Lovenox daily -toe touch to Partial weightbearing 25% right lower extremity -PT/OT -Postoperative x-ray demonstrates a well aligned, well fixed total hip prosthesis and cables, anatomic alignment of medial calcar fracture. -A.m. labs - as above, hgb 7.4, Cr 1.22. Patient VSS, will continue to monitor Hgb, defer transfusion to med team, encouraged PO intake of fluids, will avoid nephrotoxic medications. -DC planning Admission and Anticipated Discharge Date Admission Date: June 10, 2020 Subjective POD #3 Doing well. Denies SOB, Cp, N/V, dizziness. Did well in PT Set to go home w HH today. Physical Exam Physical Exam: Right hip wound vac c/d/i, no drainage. Toes/ ankle mobile. No calf tenderness. A&Ox3. VSS Results & Data ([facility]) Vital Signs (Past 12 Hours) Vital Signs Temp Pulse Resp BP Pulse Ox 06/14/20 07:00 36.7 C 85 18 129/75 96 06/13/20 23:10 36.6 C 87 16 113/63 93 (1) Periprosthetic hip fracture Encounter type: initial encounter Qualified Code(s): M97.8XXA - Perip rosthetic fracture around other internal prosthetic joint, initial encounter; Z96.649 - Presence of unspecified artificial hip joint
[2020-06-14] MEDS: DOCUSATE SODIUM 100 MG CAP PO SCH (09:23)
[2020-06-14] MEDS: MULTIVITAMIN TAB PO SCH (09:23)
[2020-06-14] MEDS: SENNA 8.6 MG TAB PO SCH (09:23)
[2020-06-14] MEDS: FERROUS GLUCONATE 324 MG TAB PO SCH (09:23)
[2020-06-14] MEDS: ATORVASTATIN 10 MG TAB PO SCH (09:23)
[2020-06-14] MEDS: LISINOPRIL/HCTZ 10/12.5MG TAB PO SCH (09:23)
[2020-06-14] MEDS: ENOXAPARIN INJ 40 MG/0.4 ML SYR SQ SCH (09:24)
[2020-06-14 12:35] VITALS: BP 129/72
[2020-06-14] MEDS: OXYCODONE HCL IR 5 MG TAB (IMMEDIATE RELEASE) PO PRN (13:02)
--- NOTE | 2020-06-14 16:59 | Discharge Summary ---
Date of Service June 14, 2020 Admission HPI Per Admitting Provider The patient is a 75-year-old female with recent surgical history for right total hip arthroplasty performed on 05/13/2020. Her postoperative period was relatively uneventful and she was progressing well with physical therapy. The patient reports that on the night of 06/09/20 she dropped a Tylenol on the floor and her cat was trying to get to it and she quickly leaned down and twisted and subsequently developed increasing right hip pain and inability to bear weight or ambulate. The patient was seen at [facility] emergency department and x-rays confirmed a proximal femur periprosthetic fracture. The patient denies falling or trauma. Denies F/C/N/V/SOB/CP. Principal Diagnosis Revision right total hip replacement, ORIF proximal femur -Right proximal femur periprosthetic fracture Discharge Exam RLE NVSI +EHL/FHL/TA/GS SILT grossly, +2 DP pulse, compartments soft NT, dressing cdi. Constitutional WD/WN, vitals as above Discharge Data Allergies Allergy/AdvReac Type Severity Reaction Status Date / Time aspirin Allergy Intermediate wheezing Verified 06/10/20 06:31 etodolac Allergy Intermediate wheezing Verified 06/10/20 06:31 animal dander Allergy Unknown wheezing, Verified 06/10/20 06:31 cough, sneezing flurbiprofen Allergy Unknown wheezing, Verified 06/10/20 06:31 cough, sneezing pollen extracts Allergy Unknown wheezing, Verified 06/10/20 06:31 cough, sneezing ibuprofen AdvReac Intermediate Unknown Verified 06/10/20 06:31 Consultations 06/10/20 06:58 Consult Internal Medicine Stat 06/10/20 07:10 ED Decision to Admit Stat 06/11/20 08:00 Consult Case Management - Discharge Planning Routine Procedures Performed Operation Date: 06/10/20 09:30 Actual Procedures p Right Total Hip Revision - Proximal Femur(Right) - Curtis Cancino DO Ordered Studies 06/10/20 14:00 FL fluoroscopy <1hr Routine FL hip RT 1V Routine Hospital Course (1) Periprosthetic hip fracture: Hospital Course: On 06/10/20 the patient was taken to the operating room, adequate anesthesia administered and underwent a revision right total hip arthroplasty, femur, ORIF proximal femur. The patient tolerated the procedure well and was taken to the PACU in stable condition. Post-operatively the patient was started on a DVT ppx medication and given appropriate IV antibiotics. The patient received 1 unit of PRBC Consults were placed to medical hospitalist, physical therapy, occupational therapy and case management. On POD#1, the patient did well overnight and their pain was well controlled. Labs were drawn and the Hgb was 7.4, Cr 1.22. The patient was transfused 1 unit of PRBC. Due to receiving blood they did not participate in PT. On POD#2, the patient continued to do well overnight, labs were drawn, hgb 7.0, Cr 1.38. The patient was transfused 2 units of PRBC. The patient did not participate in PT due to receiving blood. Drain was DC'd POD#3, the patient continued to progress, labs were drawn, hgb 9.8, Cr 1.06, the patient participated in PT, recommended rehab upon discharge. POD#4, the patient continued to progress with PT, labs were drawn, hgb 9.3, Cr 0.85. The patients hospital stay was relatively uneventful and they were deemed stable by the orthopedic team and consultants to be discharged to rehab on 06/14/20. Discharge Instructions: Upon discharge the patient should maintain no more than 25% weight bearing through their operative extremity. They were instructed to keep the incision clean and dry at all times. The patient may shower but should not submerge the incision, avoid bathing, pools and hot tubes. The patient was given a script for pain medication and should take as instructed. The patient was given a script for DVT ppx Lovenox 40mg daily and should take as directed. The patient was instructed to not drive or travel for long distances until cleared to do so. If the patient develops any symptoms of fevers, chills, nausea, vomiting, increased redness, swelling, pain or drainage from the surgical site, they should notify the office and/or proceed to the nearest emergency room. The patient should follow up in 10-14 days after surgery for their routine post- operative follow-up appointment and should call the office to confirm the date and time. -DC planning - rehab vs home with HH Status post revision right total hip arthroplasty, ORIF proximal femur POD#4 -Ancef/Vanco x24 -DVT prophylaxis: SCDs, teds, Lovenox daily -toe touch to Partial weightbearing 25% right lower extremity -PT/OT -Postoperative x-ray demonstrates a well aligned, well fixed total hip prosthesis and cables, anatomic alignment of medial calcar fracture. -A.m. labs - as above, hgb 9.8 received 2 units on 06/12/20, Cr 1.06, KISHA improved Status post revision right total hip arthroplasty, ORIF proximal femur POD#3 -Ancef/Vanco x24 -DVT prophylaxis: SCDs, teds, Lovenox daily -toe touch to Partial weightbearing 25% right lower extremity -PT/OT -Postoperative x-ray demonstrates a well aligned, well fixed total hip prosthesis and cables, anatomic alignment of medial calcar fracture. -A.m. labs - as above, hgb 9.8 received 2 units on 06/12/20, Cr 1.06, KISHA improved POD#2 -Ancef/Vanco x24 -DVT prophylaxis: SCDs, teds, Lovenox daily -toe touch to Partial weightbearing 25% right lower extremity -PT/OT -Postoperative x-ray demonstrates a well aligned, well fixed total hip prosthesis and cables, anatomic alignment of medial calcar fracture. -A.m. labs - as above, hgb 7.0, Cr 1.38. Will transfuse 2 units PRBC. -Drain output - 25/175, will DC -DC planning POD#1 -Ancef/Vanco x24 -DVT prophylaxis: SCDs, teds, Lovenox daily -toe touch to Partial weightbearing 25% right lower extremity -PT/OT -Postoperative x-ray demonstrates a well aligned, well fixed total hip prosthesis and cables, anatomic alignment of medial calcar fracture. -A.m. labs - as above, hgb 7.4, Cr 1.22. Patient VSS, will continue to monitor Hgb, defer transfusion to med team, encouraged PO intake of fluids, will avoid nephrotoxic medications. -DC planning Total Time Total Time Spent Total Time Spent (In Minutes): >60 Discharge Plan Discharge Items Patient Disposition: Home - Home Health Services Reason For Visit: RIGHT HIP PAIN PERIPROSTHETIC FRACTURE Discharge Diagnosis: Revision right total hip replacement, ORIF proximal femur Condition on Discharge: Good Activity: Per Instructions section Lifting: Wait until after follow-up appointment Bathing: Keep incision dry Bathing Comment: No bathing, pools or hot tubs. Sexual Activity: Wait until after follow-up appointment Exercise/Sports: Wait until after follow-up appointment Driving/Machine Use: No driving Weightbearing: Right partial Weightbearing Comment: 25% Non-emergency contact: Primary Care Provider and Surgeon Call non-emergency contact if: you have any medication questions, your symptoms worsen, your pain is not controlled, your pain is worsening, your pain is unusual for you, your pain is concerning for you, you have a fever, your temperature is above 101, your wound has increased redness, your wound has increased drainage and your wound pain has increased Follow-up/Referrals: Tamiko Hinkle, [Primary Care Provider] - Diet: Regular Addtl Attending Provider Instructions: ACTIVITY RECOMMENDATIONS: SELF CARE INSTRUCTIONS AFTER TOTAL KNEE REPLACEMENT A. You may need to continue a physical therapy program after discharge from the hospital. There are several options available to you. Your doctor will assist you in selecting the best one for you. 1. An out-patient facility 2 to 3 times a week for therapy or home therapy. 2. Continue working on all exercises taught to you in the hospital. Your goals should be to increase bending of your knee to 90 degrees and beyond and to fully straighten your knee. B. You may progress at your own pace from walking with a walker or crutches to a cane; then to no assistive devices. C. Make walking a part of your daily routine. Be up as much as comfortable with rest periods throughout the day. Rest with leg elevation is very important. Use the ice wrap frequently for the first 3-4 weeks. D. There are no restrictions on activities. You may ride in a car, shop, participate in testing machine operator and all social activities. E. Wear the long elastic stockings (BRAD hose) 20 hours a day for 2 weeks after surgery. They can be removed several times a day for laundering and for a bath. F. You may shower, no tub baths until cleared by your doctor. SPECIAL CARE INSTRUCTIONS: VERY IMPORTANT TO READ AND REVIEW A. There are a few signs you need to watch for after you are home. Call [facility] if you notice any of the followin. Increased severe knee pain. Some pain is expected especially when you exercise. 2. Increased swelling in your leg or knee; pain or swelling of the calf muscle in either lower leg. 3. Any fluid drainage from the incision. 4. Shortness of breath or chest pain. B. Please call [facility] at if you have any concerns or questions about your operation or recovery. The doctor or his nurse will return your call promptly. C. You must take antibiotics before dental work, bladder, bowel or other surgery. Your doctor will provide you with a permanent care to carry describing this precaution. IMPORTANT: * REMEMBER TO TAKE LOVENOX 40MG DAILY FOR 4 WEEKS UNLESS OTHERWISE DIRECTED. THIS IS YOUR BLOOD THINNER. * HIGH RISK PATIENTS MAY BE PRESCRIBED A STRONGER BLOOD THINNER. THIS WILL BE PROVIDED AT DISCHARGE. * CALL IF INCREASED PAIN, REDNESS, DRAINAGE OR FEVER GREATER THAT 101. * WEAR BRAD HOSE 20 HOURS PER DAY FOR 2 WEEKS. *MAXIME incisional vac is a special dressing covering your incision. This dressing provides a sterile dry environment while you are healing. The dressing is to be left in place for 7 days post-operatively. Your home nurse or surgeon will remove. If you develop any redness or blisters or have any questions notify your surgeon immediately. FOLLOW UP VISIT: If appointment is not already scheduled: Please call [facility] to make a follow-up appointment for 2 weeks after your surgery at . Pending Studies at Discharge: No Stand-Alone Forms: My [facility] RF Controls, Smoking Cessation Medications and DC Order Prescriptions: New acetaminophen 500 mg Tablet 1,000 mg PO Q8 PRN (Reason: pain/fevers) Qty: 90 RF: 0 enoxaparin 40 mg/0.4 mL Syringe 40 mg subcut Q24H Qty: 28 RF: 0 sennosides [Senokot] 8.6 mg Tablet 17.2 mg PO BID PRN (Reason: constipation) Qty: 28 RF: 0 oxycodone 5 mg Tablet 5 mg PO Q6H MDD 4 PRN (Reason: pain) Qty: 30 RF: 0 Continued atorvastatin 10 mg Tablet 10 mg PO QAM RF: 0 cyanocobalamin (vitamin B-12) 1,000 mcg Tablet 1,000 mcg PO QAM RF: 0 lisinopril-hydrochlorothiazide 10-12.5 mg Tablet 1 tab PO QAM RF: 0 cholecalciferol (vitamin D3) [Vitamin D3] 50 mcg (2,000 unit) Tablet 50 mcg PO QAM RF: 0 albuterol sulfate [Ventolin HFA] 90 mcg/actuation Hfa Aerosol Inhaler 2 puff INHALATION Q6H PRN (Reason: Shortness Of Breath) RF: 0 fluticasone propionate 50 mcg/actuation Keyser,Suspension 2 spray INTRANASAL DAILY RF: 0 sennosides [Senokot] 8.6 mg Tablet 17.2 mg PO HS PRN (Reason: constipation) Qty: 28 RF: 0 Discontinued aspirin 81 mg Tablet,Delayed Release (Dr/Ec) 81 mg PO BID Qty: 56 RF: 0 acetaminophen 500 mg Tablet 1,000 mg PO Q8 PRN (Reason: pain/fevers) Qty: 90 RF: 0 oxycodone 5 mg Tablet 5 mg PO Q6H MDD 4 PRN (Reason: pain) Qty: 30 RF: 0 celecoxib 100 mg capsule 100 mg PO BID RF: 0 Discharge Orders: Discharge Order (Routine); Ordered 06/14/20 Ordered By: Yusef Jenkins Admission Data Admit Date/Time: 06/10/20 07:11 Attending Provider: Curtis Cancino Admit Provider: Curtis Cancino Primary Care Provider: Tamiko Hinkle Other Providers: Yosi Weathers ; Curtis Cancino Other Interventions: Discharge Summary Assessment (RN) Last Done: 06/14/20 12:27
== END 2020-06-14 14:10 | disposition home health service (06) | DRG 467 ==
LOC: ED 05:42 → 3N 07:11

== ENCOUNTER 2022-03-12 11:57 | Inpatient (IN) ==
[2022-03-12] MEDS ORDERED: HYDROmorphone INJ 0.5 MG/0.5 ML SYR IV STA ×3 (12:00→16:49)
[2022-03-12] MEDS ORDERED: ONDANSETRON INJ 2 MG/ML 2 ML VIAL IV STA (12:00)
--- NOTE | 2022-03-12 12:06 | Emergency Department Note ---
History of Present Illness General Chief complaint: Hip Pain Source: patient History of Present Illness Provider complaint: Hip pain Onset (ago): hour(s) Location: hip and left Radiation: non-radiation Pain Consistency: + constant Quality: + sharp Exacerbated By: + movement Associated symptoms: no chest pain, no cough, no fever/chills, no headaches, no nausea/vomiting or no shortness of breath Treatments prior to arrival: other (Fentanyl 40 mcg intranasally) This is a 76-year-old female who presents by EMS for left hip pain after falling while gardening today. The patient states the incident occurred approximately 11 AM. She was on a normal and bending over. She felt as if her left hip were coming out but she was unable to straighten up and prevent it. She did fall to the ground. She denies any other pain to her body or injury from the fall. She did not hit her head or hurt her neck. She denies any recent illness, fever, cough or cold symptoms, chest pain, shortness of breath, abdominal pain, urinary symptoms or back pain. She last ate breakfast at 830 this morning. She had potatoes, toast and 2 cups of coffee. She complains of pain to the left hip which is sharp. It is worse with movement. No associated numbness in the toes. Home Medications Medication Instructions Recorded Confirmed Type albuterol sulfate 90 mcg/actuation 2 puff INHALATION Q6H PRN 04/10/20 06/10/20 History aerosol inhaler (Ventolin HFA) atorvastatin 10 mg tablet 10 mg PO QAM 04/10/20 06/10/20 History cholecalciferol (vitamin D3) 50 50 mcg PO QAM 04/10/20 06/10/20 History mcg (2,000 unit) tablet (Vitamin D3) cyanocobalamin (vitamin B-12) 1,000 mcg PO QAM 04/10/20 06/10/20 History 1,000 mcg tablet fluticasone propionate 50 2 spray INTRANASAL DAILY 04/10/20 06/10/20 History mcg/actuation nasal spray,suspension lisinopril 10 1 tab PO QAM 04/10/20 06/10/20 History mg-hydrochlorothiazide 12.5 mg tablet sennosides 8.6 mg tablet (Senokot) 17.2 mg PO HS PRN #28 tab 05/13/20 06/10/20 Rx acetaminophen 500 mg tablet 1,000 mg PO Q8 PRN #90 tab 06/13/20 Rx enoxaparin 40 mg/0.4 mL 40 mg SUBCUT Q24H #28 syr 06/13/20 Rx subcutaneous syringe oxycodone 5 mg tablet 5 mg PO Q6H PRN #30 tab MDD 4 06/13/20 Rx sennosides 8.6 mg tablet (Senokot) 17.2 mg PO BID PRN #28 tab 06/13/20 Rx Allergies Allergy/AdvReac Type Severity Reaction Status Date / Time aspirin Allergy Intermediate wheezing Verified 06/10/20 06:31 etodolac Allergy Intermediate wheezing Verified 06/10/20 06:31 animal dander Allergy Unknown wheezing, Verified 06/10/20 06:31 cough, sneezing flurbiprofen Allergy Unknown wheezing, Verified 06/10/20 06:31 cough, sneezing pollen extracts Allergy Unknown wheezing, Verified 06/10/20 06:31 cough, sneezing ibuprofen AdvReac Intermediate Unknown Verified 06/10/20 06:31 Past Med/Surg History Medical History (Updated 03/12/22 @ 16:21 by Yosi Epps MD) Asthma well controlled DJD (degenerative joint disease) Hyperlipidemia Hypertension Left bundle branch block dating back to at least 06/2012 per [facility] records Obesity Osteoarthritis Periprosthetic hip fracture Urge incontinence Surgical History Basal cell carcinoma of scalp> removed History of carpal tunnel release left History of colonoscopy History of decompression of ulnar nerve right History of tooth extraction History of total hip arthroplasty left History of total shoulder replacement bilat Status post trigger finger release left hand Social History Smoking Status: Never smoker Second Hand Exposure: No; Hx Alcohol Use: Yes Alcohol type: wine Hx Substance Use: No Preferred Language: Bahraini Communication Ability: Effective Visual Impairment: No Limitations Hearing Ability: Normal Line Staker Required: No Beliefs That Will Affect Care: None Current Living Situation: Family Feels Safe at Home: Yes Assistive Devices: Walker Review of Systems See HPI for pertinent positives & negatives. and A total of 10 systems reviewed and were otherwise negative Physical Exam Vital Signs Vital Signs - 24 hr 03/12/22 12:12 03/12/22 12:30 03/12/22 13:00 Temperature 36.4 C L Temperature Source Oral Pulse Rate 76 67 67 Pulse Rate [Apical] Pulse Rate from SpO2 Sensor 67 68 Respiratory Rate 18 16 18 Respiratory Effort / Characteristics Non-Labored Spontaneous Respiratory Depth Normal Blood Pressure 99/78 L 139/60 139/53 L Blood Pressure [Left Arm] Blood Pressure Mean 85 86 81 Blood Pressure Mean [Left Arm] Blood Pressure Position Lying Pulse Oximetry 98 99 99 Oxygen Delivery Method Room Air Room Air Room Air Sepsis Recent Fever Within 48 Hours No Sepsis New/Unexplained Change in Mental Status No Sepsis Action Taken by Nursing No Action Required End-Tidal CO2 03/12/22 13:30 03/12/22 14:00 03/12/22 14:08 Temperature Temperature Source Pulse Rate 69 86 Pulse Rate [Apical] 93 H Pulse Rate from SpO2 Sensor 88 Respiratory Rate 12 19 19 Respiratory Effort / Characteristics Respiratory Depth Blood Pressure 139/78 Blood Pressure [Left Arm] 128/69 Blood Pressure Mean 98 Blood Pressure Mean [Left Arm] 88 Blood Pressure Position Pulse Oximetry 99 Oxygen Delivery Method Room Air Room Air Sepsis Recent Fever Within 48 Hours Sepsis New/Unexplained Change in Mental Status Sepsis Action Taken by Nursing End-Tidal CO2 03/12/22 14:30 03/12/22 15:00 03/12/22 15:05 Temperature Temperature Source Pulse Rate 71 73 75 Pulse Rate [Apical] Pulse Rate from SpO2 Sensor 73 68 76 Respiratory Rate 11 L 17 11 L Respiratory Effort / Characteristics Respiratory Depth Blood Pressure 140/61 137/61 Blood Pressure [Left Arm] Blood Pressure Mean 87 86 Blood Pressure Mean [Left Arm] Blood Pressure Position Pulse Oximetry 96 96 95 Oxygen Delivery Method Room Air Room Air Sepsis Recent Fever Within 48 Hours Sepsis New/Unexplained Change in Mental Status Sepsis Action Taken by Nursing End-Tidal CO2 03/12/22 15:10 03/12/22 15:15 03/12/22 15:20 Temperature Temperature Source Pulse Rate 68 77 77 Pulse Rate [Apical] Pulse Rate from SpO2 Sensor 72 Respiratory Rate 17 16 13 Respiratory Effort / Characteristics Respiratory Depth Blood Pressure Blood Pressure [Left Arm] Blood Pressure Mean Blood Pressure Mean [Left Arm] Blood Pressure Position Pulse Oximetry 100 Oxygen Delivery Method Sepsis Recent Fever Within 48 Hours Sepsis New/Unexplained Change in Mental Status Sepsis Action Taken by Nursing End-Tidal CO2 38 03/12/22 15:25 03/12/22 15:30 03/12/22 15:34 Temperature Temperature Source Pulse Rate 63 78 77 Pulse Rate [Apical] Pulse Rate from SpO2 Sensor 67 77 77 Respiratory Rate 10 L 10 L 17 Respiratory Effort / Characteristics Respiratory Depth Blood Pressure 123/90 129/100 152/71 H Blood Pressure [Left Arm] Blood Pressure Mean 101 109 98 Blood Pressure Mean [Left Arm] Blood Pressure Position Pulse Oximetry 100 100 99 Oxygen Delivery Method Sepsis Recent Fever Within 48 Hours Sepsis New/Unexplained Change in Mental Status Sepsis Action Taken by Nursing End-Tidal CO2 34 20 37 03/12/22 15:35 03/12/22 15:40 03/12/22 15:46 Temperature Temperature Source Pulse Rate 75 64 69 Pulse Rate [Apical] Pulse Rate from SpO2 Sensor 64 70 Respiratory Rate 10 L 3 L 12 Respiratory Effort / Characteristics Respiratory Depth Blood Pressure 154/66 H 171/70 H 166/74 H Blood Pressure [Left Arm] Blood Pressure Mean 95 103 104 Blood Pressure Mean [Left Arm] Blood Pressure Position Pulse Oximetry 100 100 Oxygen Delivery Method Sepsis Recent Fever Within 48 Hours Sepsis New/Unexplained Change in Mental Status Sepsis Action Taken by Nursing End-Tidal CO2 31 22 03/12/22 15:54 03/12/22 16:00 03/12/22 16:30 Temperature Temperature Source Pulse Rate 69 69 67 Pulse Rate [Apical] Pulse Rate from SpO2 Sensor 69 67 66 Respiratory Rate 12 Respiratory Effort / Characteristics Respiratory Depth Blood Pressure 153/80 H 153/80 H 141/88 H Blood Pressure [Left Arm] Blood Pressure Mean 104 104 105 Blood Pressure Mean [Left Arm] Blood Pressure Position Pulse Oximetry 98 100 100 Oxygen Delivery Method Sepsis Recent Fever Within 48 Hours Sepsis New/Unexplained Change in Mental Status Sepsis Action Taken by Nursing End-Tidal CO2 34 Constitutional: Vital signs reviewed. Eyes: Pupils are equal round reactive to light. Conjunctiva are noninjected. ENT: Pharynx is clear without erythema or exudate. Mucous membranes are moist. Mallampati 2. Neck supple without meningeal signs. Respiratory: Clear to auscultation bilaterally. Breath sounds are equal bilaterally. Cardiovascular: Regular rate and rhythm. No rubs or gallops. GI: Soft, nondistended and nontender. Bowel sounds are present. Musculoskeletal: Tenderness to the left hip which is held in internal rotation. Normal dorsalis pedis pulse. Integumentary: No cyanosis. or jaundice. Neurological: The patient is awake and alert. No focal deficits. Normal motor and sensation in the left foot. Psychiatric: Normal affect. Not anxious appearing. Procedures Free Text Procedures Procedural Sedation Indication left hip dislocation Total time: 13 minutes. Written consent was obtained after the risks and benefits were explained to the the patient, including, but not limited to aspiration, allergic reaction, breathing difficulties, cardiac complications, vomiting, pain, event recall, bleeding, and/or infection. Pre-sedation examination and paperwork completed. The patient was on 100% oxygen via NRB prior to the procedure. Continous end tidal CO2 monitoring, pulse oximetry, and cardiac monitoring were utilized. Suction, airway equipment, medications, respiratory equipment, and appropriate personnel were prepared prior to the initiation of the procedure. A time out was taken. Sedation was achieved utilizing 30 mg of ketamine and 30 mg of propofol IV. After I observed the patient had reached the appropriate level of sedation the main procedure was performed without complication. Sedation was discontinued and the monitoring continued. The patient recovered quickly from the effects of the medication without complication or adverse event. Procedural Sedation Indication left hip dislocation Total time: 12 minutes. Written consent was obtained after the risks and benefits were explained to the patient, including, but not limited to aspiration, allergic reaction, breathing difficulties, cardiac complications, vomiting, pain, event recall, bleeding, and/or infection. Pre-sedation examination and paperwork completed. The patient was on 100% oxygen via NRB prior to the procedure. Continous end tidal CO2 monitoring, pulse oximetry, and cardiac monitoring were utilized. Suction, airway equipment, medications, respiratory equipment, and appropriate personnel were prepared prior to the initiation of the procedure. A time out was taken. Sedation was achieved utilizing 25 mg of ketamine and 25 mg of propofol. After I observed the patient had reached the appropriate level of sedation the main procedure was performed without complication. The orthopedic physician did check for stability of the hip and it dislocated again. She was given an additional 25 mg of propofol IV. He did reduce the hip again. Sedation was discontinued and the monitoring continued. The patient recovered quickly from the effects of the medication without complication or adverse event. Course Administered Medications Discontinued Medications Hydromorphone HCl (Hydromorphone Inj 0.5 Mg/0.5 Ml Syr) 0.5 mg IV NOW STA Stop: 03/12/22 12:01 Last Admin: 03/12/22 12:08 Dose: 0.5 mg Documented by: [id number] Hydromorphone HCl (Hydromorphone Inj 0.5 Mg/0.5 Ml Syr) 0.5 mg IV NOW STA Stop: 03/12/22 14:07 Last Admin: 03/12/22 14:10 Dose: 0.5 mg Documented by: [id number] Hydromorphone HCl (Hydromorphone Inj 0.5 Mg/0.5 Ml Syr) 0.25 mg IV NOW STA Stop: 03/12/22 16:50 Last Admin: 03/12/22 16:53 Dose: 0.25 mg Documented by: [id number] Sodium Chloride (Nss 1000ml) 250 mls @ 999 mls/hr IV .Q16M ONE Stop: 03/12/22 13:03 Last Infusion: 03/12/22 13:12 Dose: 0 mls/hr Documented by: [id number] Admin: 03/12/22 12:56 Dose: 999 mls/hr Documented by: [id number] Ketamine HCl (Ketamine Hcl Inj 50 Mg/Ml 10 Ml Vial) Confirm Administered Dose 500 mg .ROUTE .STK-MED ONE Stop: 03/12/22 14:28 Last Admin: 03/12/22 16:00 Dose: 30 mg Documented by: [id number] Ondansetron HCl (Ondansetron Inj 2 Mg/Ml 2 Ml Vial) 4 mg IV NOW STA Stop: 03/12/22 12:01 Last Admin: 03/12/22 12:08 Dose: 4 mg Documented by: [id number] Propofol (Propofol Iv Emulsion 10 Mg/Ml 20 Ml Vial) Confirm Administered Dose 200 mg IV .STK-MED ONE Stop: 03/12/22 14:27 Last Admin: 03/12/22 16:01 Dose: Not Given Documented by: [id number] Propofol (Propofol Iv Emulsion 10 Mg/Ml 20 Ml Vial) Confirm Administered Dose 200 mg IV .STK-MED ONE Stop: 03/12/22 14:27 Last Admin: 03/12/22 15:59 Dose: 30 mg Documented by: [id number] Cosigned by: [id number] Medical Decision Making Differential Diagnosis Hip dislocation, hip fracture, periprosthetic fracture, contusion, hardware fracture Medical Records Attestation: I reviewed the patient's medical records. I did perform a limited focused review of portions of the patient's old chart on the electronic medical record. The patient had a right hip revision due to periprosthetic fracture by Dr. Lopez in 2019. Home Medications Current Medication List: was personally reviewed by me Laboratory Data Attestation: I reviewed the patient's lab results. Result diagrams: 03/12/22 12:00 03/12/22 12:00 Lab Results 03/12/22 03/12/22 03/12/22 Range/Units 12:00 12:00 12:00 WBC 6.81 (4.8-10.8) K/uL RBC 3.90 L (4.2-5.4) M/uL Hgb 12.2 (12.0-16.0) g/dL Hct 37.1 (37-47) % MCV 95.1 (80-100) fL MCH 31.3 (25-34) pg MCHC 32.9 (32-36) g/dL RDW Std Deviation 45.2 (36.4-46.3) fL RDW Coeff of Charles 13.1 (11.5-14.5) % Plt Count 242 (130-400) K/uL MPV 8.9 (7.4-10.4) fL Immature Gran % (Auto) 0.1 % Neut % (Auto) 79.1 % Lymph % (Auto) 13.8 % [place] % (Auto) 6.0 % Eos % (Auto) 0.9 % Baso % (Auto) 0.1 % Neut # (Auto) 5.38 (1.4-6.5) K/uL Lymph # (Auto) 0.94 L (1.2-3.4) K/uL [place] # (Auto) 0.41 (0.11-0.59) K/uL Eos # (Auto) 0.06 (0-0.5) K/uL Baso # (Auto) 0.01 (0-0.2) K/uL Immature Gran # (Auto) 0.01 (0.00-0.02) K/uL PT 10.7 (9.0-12.0) Seconds INR 1.0 (0.9-1.1) APTT 25.3 (21.0-31.0) Seconds PTT Ratio 0.9 Sodium 139 (136-145) mmol/L Potassium 4.1 (3.5-5.1) mmol/L Chloride 106 (98-107) mmol/L Carbon Dioxide 25 (21-32) mmol/L Anion Gap 8 (3-11) BUN 23 (6-23) mg/dl Creatinine 1.01 (0.6-1.2) mg/dl Est Cr Clr Drug Dosing 50.5 ml/min Est GFR ( Amer) 63.5 ml/min Est GFR (Non-Af Amer) 54.8 ml/min BUN/Creatinine Ratio 22.8 H (10-20) Glucose 94 (70-99(Fasting)) mg/dl Calcium 10.2 H (8.5-10.1) mg/dl Imaging Data Radiologist's Impression: Hip X-Ray 03/12/22 12:00 XR hip LT min 2V CLINICAL HISTORY: fall eval for dislocation COMPARISON: Pelvis and left hip radiograph May 20, 2017. Pelvis radiograph June 10, 2020. FINDINGS: Left pelvic calcific density represents a calcified fibroid. There is posterior superior dislocation of the femoral component of the left hip arthroplasty with respect to the acetabular cup. There is no acute fracture. Right hip arthroplasty is noted on crosstable lateral projection with cerclage wires. Acetabular screw extends through the medial cortex of the acetabulum. IMPRESSION: 1. Dislocated femoral component of the left hip arthroplasty. 2. Acetabular screw extends from the cortex of the acetabulum. This was not jina arent on prior exam although this could be due to differences in technique. ACT 112: Negative or not required by law. Electronically signed by: Javier Bonilla M.D. 03/12/2022 12:49 PM Hip X-Ray 03/12/22 15:43 XR hip LT 1V CLINICAL HISTORY: post reduction. COMPARISON STUDY: 03/12/2022 TECHNIQUE: 1 left hip view FINDINGS: Compared to the earlier study, there has been reduction of previously identified dislocation of left hip replacement. No definite fracture is identified. IMPRESSION: 1. Status post reduction of prosthetic hip dislocation. ACT 112: Negative or not required by law. Electronically signed by: Chuck Guerrero M.D. 03/12/2022 4:06 PM Hip X-Ray 03/12/22 16:49 XR hip LT min 2V CLINICAL HISTORY: pain eval for dislocation TECHNIQUE: 2 views of the left hip and single frontal view of the pelvis were obtained. Comparison: Comparison is made to hip radiographs 03/12/2022 FINDINGS: There is no evidence of an acute fracture. There is dislocation of the total left hip prosthesis. Soft tissue swelling is seen about the knee. Incidental note is made of a calcified fibroid. IMPRESSION: Dislocation of the left hip status post total hip arthroplasty. No acute fracture is seen. ACT 112: Negative or not required by law. Electronically signed by: Tyler Fonseca M.D. 03/12/2022 5:35 PM MDM Narrative I did evaluate the patient as noted above. The patient is presenting with what appears to be a left hip dislocation. She has a prosthetic hip from 2012. She is neurovascular intact. She did receive intranasal ketamine prior to arrival with minimal pain control. IV access was established. I did treat her with IV Dilaudid and Zofran. did place an order for continuous cardiac monitoring. The monitor showed normal sinus rhythm at 74 bpm. She was made NPO. I did treat her with normal saline IV. I did order and review the patient's blood work as noted in the electronic medical record. CBC is unremarkable without leukocytosis or anemia. Coagulation studies are within normal limits. BNP is unremarkable. I did order an x-ray of the left hip and pelvis. I did review the images myself as well as the radiology report as described above. She does appear to have a dislocation of the left hip without fracture. I did discuss the case with Dr. Yarbrough of orthopedics. The patient will be cleared for conscious sedation at 3 PM as she ate a very light meal at 8:45 AM. I did obtain informed consent for conscious sedation. She was given additional Dilaudid IV for pain. We did perform conscious sedation as noted above at [address] Virgie Grimaldo performed reduction of the dislocation. She tolerated the procedure well. Postreduction films show good anatomic alignment of the hip. She was placed in an abduction pillow initially and then put in a knee immobilizer per orthopedics. Once the patient was fully awake I did review activity limitations with her. She was advised to keep the knee immobilizer on and put the abduction pillow on at night. She will follow-up with [facility] next week. She has no pain at this time and did not want to go home with any pain medicines. The nurse states that as he was discharging the patient she put some weight on the left leg and immediately dislocated the leg again. I did treat the patient with Dilaudid 0.25 mg IV. A repeat hip x-ray was obtained which showed dislocation of the hip. I did call Dr. Yarbrough of orthopedics. He did come back to the emergency department. We again performed reduction of the hip under conscious sedation as noted above. The hip demonstrates instability and so she will be hospitalized by orthopedics for bedrest and further care and evaluation. Postreduction x-ray per my interpretation shows good anatomic alignment of the hip. I did order a COVID-19 test. I did inform the case reviewer. Impression & Plan Closed dislocation of left hip, Fall Discharge Plan Visit Data Chief Complaint: Hip Pain ED Provider: Yosi Epps Discharge Problem: Closed dislocation of left hip, Fall Patient Disposition: Being Evaluated by Surgeon Condition: Good Discharge Instructions Krames/Other Patient Handouts: ED Hip Replace Dislocation Reduc Activity Restrictions/Additional Instructions: You have been examined and treated today on an emergency basis only. This is not a substitute for, or an effort to provide, complete comprehensive medical care. It is impossible to recognize and treat all injuries or illnesses in a single emergency department visit. It is therefore important that you follow up closely with your orthopedic physician next week. Call as soon as possible for an appointment. Discuss any test results from today with your doctor which may include incidental findings not brought up by the physician today. Return for worsening symptoms or if you develop any other concerning symptoms. Wear the knee immobilizer at all times except when you are sleeping. While you are sleeping use the abduction pillow between your legs. Forms Stand Alone Forms: Anesthesia/Sedation, Adult, [facility], Virtual Emergency Department, Important Visit Information Prescriptions Prescriptions: No Action atorvastatin 10 mg Tablet 10 mg PO QAM RF: 0 cyanocobalamin (vitamin B-12) 1,000 mcg Tablet 1,000 mcg PO QAM RF: 0 lisinopril-hydrochlorothiazide 10-12.5 mg Tablet 1 tab PO QAM RF: 0 cholecalciferol (vitamin D3) [Vitamin D3] 50 mcg (2,000 unit) Tablet 50 mcg PO QAM RF: 0 albuterol sulfate [Ventolin HFA] 90 mcg/actuation Hfa Aerosol Inhaler 2 puff INHALATION Q6H PRN (Reason: Shortness Of Breath) RF: 0 fluticasone propionate 50 mcg/actuation Malcolm,Suspension 2 spray INTRANASAL DAILY RF: 0 sennosides [Senokot] 8.6 mg Tablet 17.2 mg PO HS PRN (Reason: constipation) Qty: 28 RF: 0 acetaminophen 500 mg Tablet 1,000 mg PO Q8 PRN (Reason: pain/fevers) Qty: 90 RF: 0 enoxaparin 40 mg/0.4 mL Syringe 40 mg subcut Q24H Qty: 28 RF: 0 sennosides [Senokot] 8.6 mg Tablet 17.2 mg PO BID PRN (Reason: constipation) Qty: 28 RF: 0 oxycodone 5 mg Tablet 5 mg PO Q6H MDD 4 PRN (Reason: pain) Qty: 30 RF: 0 Referrals Referrals: Tamiko Hinkle DO [Primary Care Provider] - Discharge Problem: Closed dislocation of left hip Qualifiers: Encounter type: initial encounter Qualified Code(s): S73.005A - Unspecified dislocation of left hip, initial encounter Fall Qualifiers: Encounter type: initial encounter Qualified Code(s): W19.XXXA - Unspecified fall, initial encounter
[2022-03-12 12:26] LABS: Basophils # (auto) 0.01 K/uL (0-0.2); Basophils % (auto) 0.1 %; Eosinophils # (auto) 0.06 K/uL (0-0.5); Eosinophils % (auto) 0.9 %; Hematocrit (blood only) 37.1 % (37-47); Hemoglobin 12.2 g/dL (12.0-16.0); Immature Granulocytes # (auto) 0.01 K/uL (0.00-0.02); Immature Granulocytes % (auto) 0.1 %; Lymphocytes # (auto) 0.94 K/uL (1.2-3.4); Lymphocytes % (auto) 13.8 %; Mean Corpuscular Hemoglobin 31.3 pg (25-34); Mean Corpuscular Hgb Conc 32.9 g/dL (32-36); Mean Corpuscular Volume 95.1 fL (80-100); Mean Platelet Volume 8.9 fL (7.4-10.4); Monocytes # (auto) 0.41 K/uL (0.11-0.59); Neutrophils # (auto) 5.38 K/uL (1.4-6.5); Neutrophils % (auto) 79.1 %; Platelet Count 242 K/uL (130-400); RDW Coefficient of Variation 13.1 % (11.5-14.5); RDW Standard Deviation 45.2 fL (36.4-46.3); White Blood Count 6.81 K/uL (4.8-10.8)
[2022-03-12 12:42] LABS: Partial Thromboplastin Ratio 0.9; Partial Thromboplastin Time 25.3 Seconds (21.0-31.0); Prothrombin Time 10.7 Seconds (9.0-12.0)
[2022-03-12] MEDS ORDERED: SODIUM CHLORIDE 0.9% 1000ML 250 ML IV ONE (12:48)
[2022-03-12 12:49] LABS: BUN Creatinine Ratio 22.8 (10-20); Calcium 10.2 mg/dl (8.5-10.1); Creatinine Clr Calc Pharmacy 50.5 ml/min; Est GFR (African American) 63.5 ml/min; Est GFR (Non-African American) 54.8 ml/min; Potassium 4.1 mmol/L (3.5-5.1)
--- NOTE | 2022-03-12 12:50 | XRay Report ---
XR hip LT min 2V CLINICAL HISTORY: fall eval for dislocation COMPARISON: Pelvis and left hip radiograph May 20, 2017. Pelvis radiograph June 10, 2020. FINDINGS: Left pelvic calcific density represents a calcified fibroid. There is posterior superior d islocation of the femoral component of the left hip arthroplasty with respect to the acetabular cup. There is no acute fracture. Right hip arthroplasty is noted on crosstable lateral projection with cer clage wires. Acetabular screw extends through the medial cortex of the acetabulum. IMPRESSION: 1. Dislocated femoral component of the left hip arthroplasty. 2. Acetabular screw extends from the cortex of the acetabulum. This was not apparent on prior exam al though this could be due to differences in technique. ACT 112: Negative or not required by law. Electronically signed by: Javier Bonilla M.D. 03/12/2022 12:49 PM
--- NOTE | 2022-03-12 14:06 | Emergency Department Note ---
Pre Sedation Assessment Vital Signs Temp Pulse Resp BP Pulse Ox 03/12/22 13:30 69 12 139/78 03/12/22 13:00 67 18 139/53 L 99 03/12/22 12:30 67 16 139/60 99 03/12/22 12:12 36.4 C L 76 18 99/78 L 98 Cardiovascular RRR, no murmur, no edema Respiratory normal respiratory effort, lungs clear to auscultation Pre-Sedation Airway Assessment Smoking Status: Never smoker Hx Difficult Intubation: No Short, Thick Neck: No Thyromental Distance: > or= 3.5 Finger Breadths Oral Cavity: + WNL Mallampati Class: II ASA: ASA2 NPO Status Date of Last Intake of Fluids: 03/12/22 Time of Last Intake of Fluids: 08:45 Date of Last Intake of Solid Food: 03/12/22 Time of Last Intake of Solid Foods: 08:45 Procedure Planning Contraindications for Sedation: none Current Medications Reviewed: Yes Notes The planned sedation has been discussed with the patient. Informed Consent was obtained. I have identified the patient, determined the appropriateness of sedation and have assessed the patient immediately prior to the procedure. All medicine(s) and interventions are by my order.
[2022-03-12] MEDS ORDERED: PROPOFOL IV EMULSION 10 MG/ML 20 ML VIAL IV ONE ×2 (14:26)
[2022-03-12] MEDS ORDERED: KETAMINE HCL INJ 50 MG/ML 10 ML VIAL ONE (14:27)
--- NOTE | 2022-03-12 15:45 | Emergency Department Note ---
Post Sedation Assessment Vital Signs Temp Pulse Pulse Resp BP BP Pulse Ox 03/12/22 15:35 75 10 L 154/66 H 03/12/22 15:34 77 17 152/71 H 99 03/12/22 15:30 78 10 L 129/100 100 03/12/22 15:25 63 10 L 123/90 100 03/12/22 15:20 77 13 100 03/12/22 15:15 77 16 03/12/22 15:10 68 17 03/12/22 15:05 75 11 L 95 03/12/22 15:00 73 17 137/61 96 03/12/22 14:30 71 11 L 140/61 96 03/12/22 14:08 93 H 19 128/69 03/12/22 14:00 86 19 99 03/12/22 13:30 69 12 139/78 03/12/22 13:00 67 18 139/53 L 99 03/12/22 12:30 67 16 139/60 99 03/12/22 12:12 36.4 C L 76 18 99/78 L 98 Recovery Score Activity: Moves 4 extremities Respiration: Deep Breath/Cough Circulation: +/-20% PreAnes Value Consciousness: Fully Awake Oxygen Saturation: > 92% On Room Air Post Sedation Plan On clinical assessment, the patient appears to have tolerated the sedation without complications. Patient is recovering as anticipated. Patient will continue to be monitored by nursing and may be discharged when donaldo tion discharge criteria are met per below protocol. Upon Completions of procedure up to 15 minutes continue every 5 minute vital signs and the P.A.R. score; then discharge to a Phase I or Fast Track to Phase II per the following guidelines: * Discharge Patient to appropriate Phase II area if PAR is 8 or greater or return to pre- procedure baseline. The post - procedure orders will be as directed. * If PAR score is less than 8 or not return to pre-procedure baseline then patient will follow Phase I monitoring till PAR is reached for Phase II. The Phase I may be done in procedure room or may call to secure a Phase I area. * If naloxone or flumazenil are used for reversal, hold in Phase I for continued monitoring from when last reversal dose was given for a minimum of 60 minutes or longer pending the nurse and/or physician discretion of patient condition before discharge to Phase II. Please call the Sedation Physician to re-evaluate and complete post-note for discharge to Phase II area. Do NOT discharge from procedure sedation or Phase 1 until post- sedation evaluation note is complete by procedure /sedation MD Sedation Discharge Instructions to be given to the patient at discharge to home. Sedation Data Time Out Team Members Agree on the Following: Correct Patient, Correct Procedure, Correct Site-Side and Allergies Verified Team Agrees: Yes Time Out Performed Time: 15:28 Sedation Times Sedation Start Date: 03/12/22 Sedation Start Time: 15:28 Sedation End Date: 03/12/22 Sedation End Time: 15:41 Total Sedation Time: 13
--- NOTE | 2022-03-12 16:09 | XRay Report ---
XR hip LT 1V CLINICAL HISTORY: post reduction. COMPARISON STUDY: 03/12/2022 TECHNIQUE: 1 left hip view FINDINGS: Compared to the earlier study, there has been reduction of previously identified dislocatio n of left hip replacement. No definite fracture is identified. IMPRESSION: 1. Status post reduction of prosthetic hip dislocation. ACT 112: Negative or not required by law. Electronically signed by: Chuck Guerrero M.D. 03/12/2022 4:06 PM
--- NOTE | 2022-03-12 17:07 | Consultation Report ---
EMERGENCY ROOM CONSULTATION DATE OF SERVICE: 03/12/2022 SPECIAL ATTENTION TO: Left hip dislocation. HISTORY OF PRESENT ILLNESS: This is a 76-year-old female who was bending down in her yard picking up weeds earlier today. She states she has felt a pop and noted dislocation in her left hip. She states this is the first time her hip is dislocated, but does have complaints of a sense of insta bility when she moves her hip previously. 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 PHYSICAL EXAMINATION: EXTREMITIES: Left leg exam shows a short and internally rotated leg. She can flex and extend the to es, but exam is limited secondary to the discomfort. Toes are warm and well perfused. I reviewed AP and lateral of the left hip, it does show a posterior and superior hip dislocation. No fracture. Hardware is grossly intact. IMPRESSION: A 76-year-old female with left total hip dislocation. PLAN: I discussed findings and treatment with her. Recommendations for closed reduction. She has b een n.p.o. for the appropriate amount of time and Emergency Department has agreed to give her conscio us sedation. PROCEDURE NOTE: I discussed risks, benefits, reasonable outcomes and expectations of hip reduction. We discussed possibility of failure to reduce. We discussed possibility of a fracture, etc. The patient was given conscious sedation with propofol and ketamine. I performed a gentle reduction maneuver with longitudinal traction and internal and external rotation. Audible clunk was heard and the hip did appear to be concentrically reduced. Her leg lengths were equal. AP radiograph did show concentric reduction of her hip. She was placed in an abduction pillow and will be discharged with a knee immobilizer and hip precautions. She will follow up with Dr. Balbuena for further evaluation of stability of the hip. Job ID: [id number]
[2022-03-12] MEDS ORDERED: KETAMINE HCL INJ 50 MG/ML 10 ML VIAL IV STA (17:18)
[2022-03-12] MEDS ORDERED: PROPOFOL IV EMULSION 10 MG/ML 20 ML VIAL IV STA (17:18)
--- NOTE | 2022-03-12 17:21 | Emergency Department Note ---
Pre Sedation Assessment Vital Signs Temp Pulse Pulse Resp BP BP Pulse Ox 03/12/22 16:30 67 141/88 H 100 03/12/22 16:00 69 153/80 H 100 03/12/22 15:54 69 12 153/80 H 98 03/12/22 15:46 69 12 166/74 H 100 03/12/22 15:40 64 3 L 171/70 H 100 03/12/22 15:35 75 10 L 154/66 H 03/12/22 15:34 77 17 152/71 H 99 03/12/22 15:30 78 10 L 129/100 100 03/12/22 15:25 63 10 L 123/90 100 03/12/22 15:20 77 13 100 03/12/22 15:15 77 16 03/12/22 15:10 68 17 03/12/22 15:05 75 11 L 95 03/12/22 15:00 73 17 137/61 96 03/12/22 14:30 71 11 L 140/61 96 03/12/22 14:08 93 H 19 128/69 03/12/22 14:00 86 19 99 03/12/22 13:30 69 12 139/78 03/12/22 13:00 67 18 139/53 L 99 03/12/22 12:30 67 16 139/60 99 03/12/22 12:12 36.4 C L 76 18 99/78 L 98 Cardiovascular RRR, no murmur, no edema Respiratory normal respiratory effort, lungs clear to auscultation Pre-Sedation Airway Assessment Smoking Status: Never smoker Hx Sleep Apnea: No Hx Difficult Intubation: No Short, Thick Neck: No Thyromental Distance: > or= 3.5 Finger Breadths Oral Cavity: + Chipped Teeth Mallampati Class: I ASA: ASA2 NPO Status Date of Last Intake of Fluids: 03/12/22 Time of Last Intake of Fluids: 08:45 Date of Last Intake of Solid Food: 03/12/22 Time of Last Intake of Solid Foods: 08:45 Notes The planned sedation has been discussed with the patient. Informed Consent was obtained. I have identified the patient, determined the appropriateness of sedation and have assessed the patient immediately prior to the procedure. All medicine(s) and interventions are by my order. : Closed dislocation of left hip Qualifiers: Encounter type: initial encounter Qualified Code(s): S73.005A - Unspecified dislocation of left hip, initial encounter Fall Qualifiers: Encounter type: initial encounter Qualified Code(s): W19.XXXA - Unspecified fall, initial encounter
--- NOTE | 2022-03-12 17:37 | XRay Report ---
XR hip LT min 2V CLINICAL HISTORY: pain eval for dislocation TECHNIQUE: 2 views of the left hip and single frontal view of the pelvis were obtained. Comparison: Comparison is made to hip radiographs 03/12/2022 FINDINGS: There is no evidence of an acute fracture. There is dislocation of the total left hip prosthesis. Sof t tissue swelling is seen about the knee. Incidental note is made of a calcified fibroid. IMPRESSION: Dislocation of the left hip status post total hip arthroplasty. No acute fracture is seen. ACT 112: Negative or not required by law. Electronically signed by: Tyler Fonseca M.D. 03/12/2022 5:35 PM
--- NOTE | 2022-03-12 17:55 | Emergency Department Note ---
Post Sedation Assessment Vital Signs Temp Pulse Pulse Resp BP BP Pulse Ox 03/12/22 16:30 67 141/88 H 100 03/12/22 16:00 69 153/80 H 100 03/12/22 15:54 69 12 153/80 H 98 03/12/22 15:46 69 12 166/74 H 100 03/12/22 15:40 64 3 L 171/70 H 100 03/12/22 15:35 75 10 L 154/66 H 03/12/22 15:34 77 17 152/71 H 99 03/12/22 15:30 78 10 L 129/100 100 03/12/22 15:25 63 10 L 123/90 100 03/12/22 15:20 77 13 100 03/12/22 15:15 77 16 03/12/22 15:10 68 17 03/12/22 15:05 75 11 L 95 03/12/22 15:00 73 17 137/61 96 03/12/22 14:30 71 11 L 140/61 96 03/12/22 14:08 93 H 19 128/69 03/12/22 14:00 86 19 99 03/12/22 13:30 69 12 139/78 03/12/22 13:00 67 18 139/53 L 99 03/12/22 12:30 67 16 139/60 99 03/12/22 12:12 36.4 C L 76 18 99/78 L 98 Recovery Score Activity: Moves 4 extremities Respiration: Deep Breath/Cough Circulation: +/-20% PreAnes Value Consciousness: Fully Awake Oxygen Saturation: > 92% On Room Air Post Anesthesia Score: 10 Discharge Sedation Level of Care: Fast Track Phase II Unexpected Event: None Post Sedation Plan On clinical assessment, the patient appears to have tolerated the sedation without complications. Patient is recovering as anticipated. Patient will continue to be monitored by nursing and may be discharged when sedation discharge criteria are met per below protocol. Upon Completions of procedure up to 15 minutes continue every 5 minute vital signs and the P.A.R. score; then discharge to a Phase I or Fast Track to Phase II per the following guidelines: * Discharge Patient to appropriate Phase II area if PAR is 8 or greater or return to pre- procedure baseline. The post - procedure orders will be as directed. * If PAR score is less than 8 or not return to pre-procedure baseline then patient will follow Phase I monitoring till PAR is reached for Phase II. The Phase I may be done in procedure room or may call to secure a Phase I area. * If naloxone or flumazenil are used for reversal, hold in Phase I for continued monitoring from when last reversal dose was given for a minimum of 60 minutes or longer pending the nurse and/or physician discretion of patient condition before discharge to Phase II. Please call the Sedation Physician to re-evaluate and complete post-note for discharge to Phase II area. Do NOT discharge from procedure sedation or Phase 1 until post- sedation evaluation note is complete by procedure /sedation MD Sedation Discharge Instructions to be given to the patient at discharge to home. Sedation Data Time Out Team Members Agree on the Following: Correct Patient, Correct Procedure, Correct Site-Side and Allergies Verified Team Agrees: Yes Time Out Performed Time: 17:41 Sedation Times Sedation Start Date: 03/12/22 Sedation Start Time: 17:41 Sedation End Date: 03/12/22 Sedation End Time: 17:53 Total Sedation Time: 12 Procedure Times Procedure Start Time:: 17:41 Procedure End Time: 17:53 Specimens Specimens Obtained: No : Closed dislocation of left hip Qualifiers: Encounter type: initial encounter Qualified Code(s): S73.005A - Unspecified dislocation of left hip, initial encounter Fall Qualifiers: Encounter type: initial encounter Qualified Code(s): W19.XXXA - Unspecified fall, initial encounter
--- NOTE | 2022-03-12 18:05 | XRay Report ---
XR hip LT 1V CLINICAL HISTORY: post reduction TECHNIQUE: 1 views of the right hip were obtained. Comparison: None available at the time of this dictation. FINDINGS/IMPRESSION: Interval reduction of previously noted left hip dislocation. No fracture is seen. Redemonstration of soft tissue swelling. ACT 112: Negative or not required by law. Electronically signed by: Tyler Fonseca M.D. 03/12/2022 6:04 PM
[2022-03-12] MEDS ORDERED: ALBUTEROL HFA 8 GM INHALER INH PRN (18:18)
[2022-03-12] MEDS ORDERED: SENNA 8.6 MG TAB PO PRN (18:18)
--- NOTE | 2022-03-12 18:38 | History and Physical Report ---
HISTORY OF PRESENT ILLNESS: The patient is seen in the Emergency Department. I reduced her left hip dislocation approximately an hour and a half ago. She was sitting on the bed in a semi-flexed posit ion, hip dislocated again as she was attempting to stand. She has complaints of pain in the left hip . PAST MEDICAL HISTORY: Includes hypertension and hyperlipidemia. MEDICATIONS: Flonase p.r.n., Lipitor, vitamin D, lisinopril 10 mg p.o. q.a.m., Senokot p.r.n., aceta minophen p.r.n. PHYSICAL EXAMINATION: Heart is regular. Lungs are clear. Left hip exam is short and internally rot ated hip. She has pain with log roll. She can flex and extend the toes, but exam is limited seconda ry to discomfort. ASSESSMENT: Persistent left hip dislocation. PROCEDURE NOTE: The patient was given conscious sedation given by the Department of Anesthesia after informed consent was obtained. I performed a direct reduction maneuver with flexion, internal rotati on and adduction. This resulted in a pop and then I reduced the hip. It did show concentric reduct ion with relatively equal leg lengths. I checked stability in flexion of 90 degrees and at 10 degrees of internal rotation, the hip popped o ut of joint and did show instability. I reduced the hip again. The patient was placed in an abduction pillow. PLAN: Will be admission to the hospital with hip abduction brace fitting. I discussed the case with Dr. Balbuena who did feel that given the persistent instability, revision wit h the constrained liner may be an option. We will hopefully plan to discharge the patient in an abdu ction brace and further discuss with Dr. Balbuena as an outpatient. Job ID: [id number]
[2022-03-13] MEDS: CYANOCOBALAMIN (B-12) 500 MCG TABLET PO SCH (08:25)
[2022-03-13] MEDS: LISINOPRIL/HCTZ 10/12.5MG TAB PO SCH (08:25)
[2022-03-13] MEDS: ATORVASTATIN 10 MG TAB PO SCH (08:25)
[2022-03-13] MEDS: CHOLECALCIFEROL 1,000 UNITS 25 MCG TAB PO SCH (08:26)
[2022-03-13] MEDS: FLUTICASONE PROPIONATE NA SPR 16 GM BTL SCH (08:27)
--- NOTE | 2022-03-13 11:00 | Orthopedic Progress Note ---
Date of Service March 13, 2022 Assessment & Plan (1) Closed dislocation of left hip: Plan: Will await abduction brace. We will hopefully anticipate discharge when she is stable in the abduction brace. We will likely have Dr. Balbuena fix the hip with revision to a constrained liner as outpatient Admission and Anticipated Discharge Date Admission Date: March 12, 2022 Subjective Penelope is feeling well today and denies any pain Review of Systems Musculoskeletal: Denies numbness tingling or weakness Physical Exam Musculoskeletal: Left hip is currently well located. She has 5 out of 5 ankle flexion ankle extension. Toes are warm and well-perfused. Calf is nontender Results & Data ([facility]) Vital Signs (Past 12 Hours) Vital Signs Temp Pulse Resp BP Pulse Ox 03/13/22 08:23 77 153/81 H 03/13/22 07:58 36.8 C 79 16 127/69 97 (1) Closed dislocation of left hip Encounter type: initial encounter Qualified Code(s): S73.005A - Unspecified dislocation of left hip, initial encounter
[2022-03-13] MEDS: ACETAMINOPHEN 500 MG TAB PO PRN (22:47)
[2022-03-14] MEDS: CHOLECALCIFEROL 1,000 UNITS 25 MCG TAB PO SCH (08:11)
[2022-03-14] MEDS: FLUTICASONE PROPIONATE NA SPR 16 GM BTL SCH (08:11)
[2022-03-14] MEDS: LISINOPRIL/HCTZ 10/12.5MG TAB PO SCH (08:11)
[2022-03-14] MEDS: CYANOCOBALAMIN (B-12) 500 MCG TABLET PO SCH (08:11)
[2022-03-14] MEDS: ATORVASTATIN 10 MG TAB PO SCH (08:11)
--- NOTE | 2022-03-14 09:53 | Orthopedic Progress Note ---
Date of Service March 14, 2022 Assessment & Plan (1) Closed dislocation of left hip: Plan: Will await abduction brace. We will hopefully anticipate discharge when she is stable in the abduction brace. We will likely have Dr. Balbuena fix the hip with revision to a constrained liner as outpatient Orthotics is consulted. Physical therapy is consulted so that they can mobilize her after the brace. If she is able to get up and about we will discharge to home on Tuesday if she is safe at home and can get about at home. Will follow-up with Dr. Balbuena on Tuesday as an outpatient at [facility] office to discuss definitive surgical treatment. Admission and Anticipated Discharge Date Admission Date: March 12, 2022 Subjective Penelope is feeling well today and denies any pain. No new complaints today. Is comfortable. Review of Systems Musculoskeletal: Denies numbness tingling or weakness Results & Data ([facility]) Vital Signs (Past 12 Hours) Vital Signs Temp Pulse Resp BP Pulse Ox 03/14/22 06:10 36.7 C 67 16 120/71 97 03/13/22 22:05 37.1 C 72 16 102/58 L 98 (1) Closed dislocation of left hip Encounter type: initial encounter Qualified Code(s): S73.005A - Unspecified dislocation of left hip, initial encounter
[2022-03-14] MEDS: ACETAMINOPHEN 500 MG TAB PO PRN (21:54)
[2022-03-15] MEDS: CYANOCOBALAMIN (B-12) 500 MCG TABLET PO SCH (08:46)
[2022-03-15] MEDS: FLUTICASONE PROPIONATE NA SPR 16 GM BTL SCH (08:46)
[2022-03-15] MEDS: ATORVASTATIN 10 MG TAB PO SCH (08:46)
[2022-03-15] MEDS: LISINOPRIL/HCTZ 10/12.5MG TAB PO SCH (08:46)
[2022-03-15] MEDS: CHOLECALCIFEROL 1,000 UNITS 25 MCG TAB PO SCH (08:46)
--- NOTE | 2022-03-15 17:29 | Orthopedic Progress Note ---
Date of Service March 15, 2022 Assessment & Plan (1) Closed dislocation of left hip: Plan: First-time left hip dislocation with redislocation in the emergency room post reduction. The patient, along with her daughter, and I had a lengthy discussion about plans for her hip. Per the patient, there apparently was not an immobilizer on the lower extremity during the attempt to get her up to ambulate. It was felt that the hip was very unstable and that she would be kept at bedrest for now. She now does have the immobilizer on. We discussed the use of an abduction brace. We discussed that if she wanted to hold off on surgery then we would attempt to use the abduction brace that she would have to wear 11/04 for anywhere from 2 to 6 weeks. This would not guarantee that she would not have another dislocation. After discussing the case with Dr. Wayne Balbuena today, we will hold off on the abduction brace for now. We will have physical therapy work with her tomorrow to attempt to get her out of bed with the immobilizer on this time. If this was successful and the patient had no subluxation feelings in the left hip then the plan will be to discharge her to Dr. Balbuena's office tomorrow and plan to work-up for revision surgery on the left hip possibly as e marah as this at [facility]. We discussed all avenues of treatment and the patient is in agreement to go ahead and stay at bedrest tonight and try PT in the morning with the immobilizer on. She does not want this to happen again and she is fully on board with having revision surgery. We will recheck her in the morning and discussed with physical therapy our plans. Admission and Anticipated Discharge Date Admission Date: March 12, 2022 Subjective Patient sitting up in a mildly flexed position in her bed. Her daughter is present. We discussed her history with her left hip. She states that over time she noticed that the hip was subluxing to the point where it was almost going to dislocate. The patient learned over time how to keep this from happening and would maneuver the leg back in the position where the hip would go back into place. She states that she brought it up at least once to Dr. Laureano abdul in the past however the patient stated she really did not go through another surgery and she had not yet dislocated so she was going to wait to see how things played out. She has done well over the years keeping her hip from coming out. However the patient states that while she was weeding her flower beds, she was flexing at the waist more than she probably should have been per her account. She felt that the hip was starting to sublux and when she tried to save it, she was on uneven ground and ended up twisting and falling onto her left side. She states that the hip was put back into place in the emergency room and when they tried to get her up again, it dislocated again. She feels that she did not have an immobilizer on at that time. At that time, an immobilizer was placed on the left lower extremity and she was ordered to bedrest. Dr. Yarbrough discussed the case with Dr. Wayne Balbuena. Initially an abduction brace was ordered but there is also possibility of surgery in her near future for revision. I am here now to discuss possible plans for her this week. Physical Exam Physical Exam: Abduction pillow is in place. Immobilizer is on and left in place. Her leg lengths appear equal at this time. Hip appears located. Neurovascular is intact. Results & Data ([facility]) Vital Signs (Past 12 Hours) Vital Signs Temp Pulse Resp BP Pulse Ox 03/15/22 16:11 37.1 C 84 18 153/75 H 97 03/15/22 06:13 36.7 C 70 16 119/72 98 (1) Closed dislocation of left hip Encounter type: initial encounter Qualified Code(s): S73.005A - Unspecified dislocation of left hip, initial encounter
[2022-03-15] MEDS: ACETAMINOPHEN 500 MG TAB PO PRN (22:32)
[2022-03-16] MEDS: ACETAMINOPHEN 500 MG TAB PO PRN (08:24)
[2022-03-16] MEDS: CYANOCOBALAMIN (B-12) 500 MCG TABLET PO SCH (08:24)
[2022-03-16] MEDS: LISINOPRIL/HCTZ 10/12.5MG TAB PO SCH (08:24)
[2022-03-16] MEDS: FLUTICASONE PROPIONATE NA SPR 16 GM BTL SCH (08:25)
[2022-03-16] MEDS: CHOLECALCIFEROL 1,000 UNITS 25 MCG TAB PO SCH (08:25)
[2022-03-16] MEDS: ATORVASTATIN 10 MG TAB PO SCH (08:25)
--- NOTE | 2022-03-16 08:53 | Orthopedic Progress Note ---
Date of Service March 16, 2022 Assessment & Plan (1) Closed dislocation of left hip: Plan: Attempt PT this AM. I have discussed this case with Buck Jimenes PT this AM. If patient tolerating PT, we will plan to discharge her to Dr. Balbuena's office today with plans for workup for revision surgery possibly this week at [facility] ([facility]). Admission and Anticipated Discharge Date Admission Date: March 12, 2022 Subjective Pt sitting up in bed eating breakfast. States she had a good night. No new complaints. Physical Exam Physical Exam: Exam unchanged from yesterday. Immobilizer on. Hip abduction pillow in place. Hip appears located. Leg lengths essentially equal. NV intact. Results & Data ([facility]) Vital Signs (Past 12 Hours) Vital Signs Temp Pulse Resp BP BP Pulse Ox 03/16/22 07:27 36.5 C 65 16 123/71 95 03/15/22 21:27 37 C 80 16 124/74 96 (1) Closed dislocation of left hip Encounter type: initial encounter Qualified Code(s): S73.005A - Unspecified dislocation of left hip, initial encounter
--- NOTE | 2022-03-16 09:00 | Communication Note ---
Date of Service: March 16, 2022 Pt awake, alert. No new complaints.
--- NOTE | 2022-03-16 11:49 | CT Scan Report ---
CT pelvis wo con CLINICAL HISTORY: Eval acetabular cup rotation s/p dislocation COMPARISON STUDY: Left hip radiographs May 20, 2017 and March 12, 2022. TECHNIQUE: Axial images of the pelvis and hips were obtained without intravenous contrast. Sagittal a nd coronal reconstructions were viewed. Automated exposure control was utilized for the study. A dos e lowering technique was utilized adhering to the principles of ALARA. FINDINGS: Alignment of the bilateral hip arthroplasties is anatomic. No periprosthetic fracture is no pippa. Alignment of the left acetabular cup appears unchanged since radiographs of May 20, 2017. T he left acetabular screw slightly extends through the cortex however this is likely not acute. There is no adjacent soft tissue abnormality. Calcified fibroid is incidentally noted. Soft tissues adjacen t to the left hip are suboptimally assessed given streak artifact from the hip arthroplasty. No joint effusion is noted. There may be slight adjacent soft tissue edema which is not unexpected given rece nt dislocation. Sacroiliac joints and symphysis pubis are intact. No suspicious lesions within the vi sualized skeletal structures are present. Caliber of visualized small and large bowel are normal. IMPRESSION: 1. Intact total bilateral hip arthroplasties. No periprosthetic fracture. 2. Unchanged alignment of the left acetabular cup since initial postoperative radiographs. No evidenc e for cup rotation by CT. Left acetabular screw slightly extends through the cortex however this is u nlikely to be acute. ACT 112: Negative or not required by law. Electronically signed by: Javier Bonilla M.D. 03/16/2022 11:46 AM
--- NOTE | 2022-03-17 10:41 | Discharge Summary ---
Date of Service March 17, 2022 Admission HPI Per Admitting Provider The patient is seen in the Emergency Department. I reduced her left hip dislocation approximately an hour and a half ago. She was sitting on the bed in a semi-flexed position, hip dislocated again as she was attempting to stand. She has complaints of pain in the left hip. Admission Exam Per Admitting Provider PHYSICAL EXAMINATION: Heart is regular. Lungs are clear. Left hip exam is short and internally rotated hip. She has pain with log roll. She can flex and extend the toes, but exam is limited secondary to discomfort. Principal Diagnosis Left TIKI Dislocation Discharge Data Allergies Allergy/AdvReac Type Severity Reaction Status Date / Time aspirin Allergy Intermediate wheezing Verified 06/10/20 06:31 etodolac Allergy Intermediate wheezing Verified 06/10/20 06:31 animal dander Allergy Unknown wheezing, Verified 06/10/20 06:31 cough, sneezing flurbiprofen Allergy Unknown wheezing, Verified 06/10/20 06:31 cough, sneezing pollen extracts Allergy Unknown wheezing, Verified 06/10/20 06:31 cough, sneezing ibuprofen AdvReac Intermediate Unknown Verified 06/10/20 06:31 Consultations 03/12/22 18:02 ED Decision to Admit Stat Procedures Performed CR Left TIKI dislocation in ER by Dr. Yarbrough on day of admission. Ordered Studies 03/16/22 10:33 CT pelvis wo con Urgent Hospital Course (1) Closed dislocation of left hip: Patient was admitted on the above-noted date with the above-noted left TIKI dislocation. Patient underwent conscious sedation in the emergency room and the hip was relocated by Dr Yarbrough. At that time, the they try to get the patient up for ambulation. Patient states that she did not have an immobilizer on at that time and redislocated. They gave her more conscious sedation and again closed reduction was performed. It was felt that she was fairly unstable and was admitted. Orthotics consult was placed for a hinged abduction brace for the patient. However orthotics is not available over the weekend and patient was kept essentially at bedrest. Patient was measured for brace on the following Tuesday. Dr. Yarbrough discussed the case with Dr. Balbuena whom the patient had seen in the past. Dr. Balbuena consider the possibility of revision of her acetabulum or liner that following week. This was discussed with the patient and detail with her and her daughter. Plans were either a abduction brace for 2 to 6 weeks with question of revision thereafter versus having revision of the acetabular much sooner. Patient opted to have the problem taken care of much s ooner. Abduction brace was then canceled. Immobilizer has been placed on the patient's left lower extremity and physical therapy was ordered. Patient was able to get out of bed without difficulty. She ambulated over 100 feet and worked on steps with PT. They felt she was stable for discharge. She was thusly discharged to Dr. Wayne Balbuena's office directly to begin the process of planning for surgery in the next few days for her revision. For further review please see chart. Lab and x-ray data as per chart. Total Time Total Time Spent Total Time Spent (In Minutes): 5 Discharge Plan Discharge Items Patient Disposition: Home - Self-Care Reason For Visit: LEFT HIP DISLOCATION Discharge Diagnosis: Left Hip Dislocation Condition on Discharge: Good Activity: Per Instructions section Weightbearing: Left weightbearing Weightbearing Comment: as tolerated with Immobilizer on at all times. Non-emergency contact: Surgeon Call non-emergency contact if: you have any medication questions and your pain is worsening Follow-up/Referrals: Tamiko Hinkle, [Primary Care Provider] - Diet: Regular Addtl Attending Provider Instructions: PLEASE FOLLOW STRICT HIP PRECAUTIONS! PLEASE WEAR THE IMMOBILIZER ON YOUR LEFT KNEE AT ALL TIMES. PLEASE SLEEP WITH IT ON. YOU MAY REMOVE IT FOR CHANGING CLOTHES OR BATHING NEEDS. NO TUB BATHS. YOU CAN BE WEIGHTBEARING TOLERATED WITH A WALKER OR CANE. PLEASE FOLLOW UP WITH DR. BALBUENA TODAY IN HIS OFFICE TO DISCUSS FUTURE PLANS FOR REVSION SURGERY. Stand-Alone Forms: [facility] [employer], Opioid Pain Management Medications and DC Order Prescriptions: Continued atorvastatin 10 mg Tablet 10 mg PO QAM RF: 0 cyanocobalamin (vitamin B-12) 1,000 mcg Tablet 1,000 mcg PO QAM RF: 0 lisinopril-hydrochlorothiazide 10-12.5 mg Tablet 1 tab PO QAM RF: 0 cholecalciferol (vitamin D3) [Vitamin D3] 50 mcg (2,000 unit) Tablet 50 mcg PO QAM RF: 0 albuterol sulfate [Ventolin HFA] 90 mcg/actuation Hfa Aerosol Inhaler 2 puff INHALATION Q6H PRN (Reason: Shortness Of Breath) RF: 0 fluticasone propionate 50 mcg/actuation [place],Suspension 2 spray INTRANASAL DAILY RF: 0 sennosides [Senokot] 8.6 mg Tablet 17.2 mg PO HS PRN (Reason: constipation) Qty: 28 RF: 0 acetaminophen 500 mg Tablet 1,000 mg PO Q8 PRN (Reason: pain/fevers) Qty: 90 RF: 0 oxycodone 5 mg Tablet 5 mg PO Q6H MDD 4 PRN (Reason: pain) Qty: 30 RF: 0 Discontinued enoxaparin 40 mg/0.4 mL Syringe 40 mg subcut Q24H Qty: 28 RF: 0 sennosides [Senokot] 8.6 mg Tablet 17.2 mg PO BID PRN (Reason: constipation) Qty: 28 RF: 0 Discharge Orders: Discharge Order (Routine); Ordered 03/16/22 Ordered By: Jensen Simon/Other Patient Handouts: DVT Post Op Prevention Admission Data Admit Date/Time: 03/12/22 19:43 Attending Provider: Braden Yarbrough Admit Provider: Braden Yarbrough Primary Care Provider: Tamiko Hinkle Other Providers: Braden Yarbrough Other Interventions: Discharge Summary Assessment (RN) Last Done: 03/16/22 10:25
== END 2022-03-16 12:15 | disposition home or self-care (01) | DRG 561 ==
LOC: ED 11:57 → 3W 19:43